=== PATIENT | female | born 1975 | race Caucasian/White ===

== ENCOUNTER 2020-09-12 | Outpatient (REF) | payer MEDICARE, MEDICAID, SELFPAY | END 2020-09-12 00:01 | disposition home or self-care (01) | LOC: HO.LNP | PROVIDERS: Visit Provider Hospitalist | DX: Z20.828 Contact with and (suspected) exposure to other viral communicable diseases (principal) | CPT/HCPCS: U0003 ==

== ENCOUNTER 2021-04-22 19:25 | Outpatient (REF) | payer MEDICARE, MEDICAID, SELFPAY | END 2021-04-22 19:26 | disposition home or self-care (01) | LOC: HO.LNP 19:25 | PROVIDERS: Visit Provider Family Medicine | DX: Z20.822 Contact with and (suspected) exposure to COVID-19 (principal); R05 Cough; B34.9 Viral infection, unspecified | CPT/HCPCS: U0003; U0005 ==

== ENCOUNTER 2022-05-18 14:57 | Outpatient (REF) | payer MEDICARE, MEDICAID, SELFPAY ==
[2022-05-18 15:32] LABS: Red Blood Count 4.64 X10*6/uL (4.20-5.50)
[2022-05-18 15:34] LABS: Hematocrit 42.4 % (37.0-47.0); Hemoglobin 13.6 g/dl (12.0-16.0); Mean Corpuscular HGB Conc 32.1 g/dl (31.0-35.0); Mean Corpuscular Hemoglobin 29.3 pg (27.0-33.0); Mean Corpuscular Volume 91.4 fL (80.0-98.0); Mean Platelet Volume 13.6 fL (9.4-12.3); Platelet Count 123 X10*3/uL (160-400); Red Cell Distribution Width 14.2 % (11.0-16.0); White Blood Count 13.9 X10*3/uL (4.8-10.8)
[2022-05-18 15:42] LABS: PLT ABN DIST 1
[2022-05-18 16:05] LABS: Alanine Aminotransferase 17 U/L (0-31); Albumin Level 4.6 g/dL (3.5-5.0); Alkaline Phosphatase 79 U/L (39-117); Anion Gap 14 (12-20); Aspartate Amino Transferase 15 U/L (5-31); Bilirubin Total 0.4 mg/dL (0.0-1.0); Blood Urea Nitrogen 10 mg/dL (9-16); Calcium 8.9 mg/dL (8.4-10.2); Carbon Dioxide 25 mmol/L (22-29); Chloride 105 mmol/L (96-108); Cholesterol 231 mg/dL; Estimated Glomerular Filt Rate > 60; Glucose Fasting 87 mg/dL (60-99); HDL Cholesterol 26 mg/dL; Potassium 3.8 mmol/L (3.3-5.1); Sodium 140 mmol/L (135-145); Total Protein 7.6 g/dL (6.5-8.0); Triglycerides 414 mg/dL
[2022-05-18 16:26] LABS: TSH reflex Free T4 2.63 uIU/mL (0.32-4.0)
== END 2022-05-18 14:58 | disposition home or self-care (01) ==
LOC: HO.LAB 14:57
PROVIDERS: PCP Hospitalist; Visit Provider Hospitalist
DX: Z00.00 Encounter for general adult medical examination without abnormal findings (principal); R68.89 Other general symptoms and signs
CPT/HCPCS: 36415; 80053; 80061; 84443; 85027

== ENCOUNTER 2022-05-26 16:28 | Outpatient (REF) | payer MEDICARE, MEDICAID, SELFPAY ==
--- NOTE | ~2022-05-26 | XR_ITS ---
EXAMINATION: XR SHOULDER, LEFT CLINICAL INFORMATION: Pain left shoulder COMPARISON: None TECHNIQUE: AP external rotation, Grashey, scapular Y, and axillary views of the left shoulder. FINDINGS: The bones and soft tissues are normal. No fracture. Glenohumeral and acromioclavicular alignment is anatomic with normal joint space. No abnormal soft tissue calcifications. XR/XR shoulder LT min 2V IMPRESSION: Unremarkable left shoulder exam.
== END 2022-05-26 16:29 | disposition home or self-care (01) ==
LOC: HO.XRAY 16:28
PROVIDERS: PCP Hospitalist; Visit Provider Hospitalist
DX: M25.512 Pain in left shoulder (principal)
CPT/HCPCS: 73030

== ENCOUNTER 2022-11-24 15:13 | Outpatient (REF) | payer MEDICARE, MEDICAID, SELFPAY ==
[2022-11-25 11:17] LABS: Appearance Urine Clear; Color Urine Yellow; Glucose Urine UA Negative (Negative); Leukocyte Esterase Urine Negative (Negative); Nitrite Urine Negative (Negative); Urine Blood Negative (Negative); Urine Ketones Negative (Negative); Urine Protein Negative (Neg-Trace)
== END 2022-11-24 15:14 | disposition home or self-care (01) ==
LOC: HO.LAB 15:13
PROVIDERS: Visit Provider Hospitalist
DX: R35.0 Frequency of micturition (principal)
CPT/HCPCS: 81003

== ENCOUNTER 2023-01-29 15:30 | Outpatient (REF) | payer MEDICARE, MEDICAID, SELFPAY ==
--- NOTE | ~2023-01-29 | XR_ITS ---
EXAMINATION: XR SACRUM AND COCCYX CLINICAL INFORMATION: Back pain. M54.9 - Dorsalgia, unspecified COMPARISON: None available. TECHNIQUE: The sacrum and coccyx are imaged in 3 views. FINDINGS: There is no fracture or destructive process. No periostitis. No spondylolisthesis lumbosacral junction. No focal disc narrowing or endplate sclerosis lower lumbar spine. Mild lower lumbar vertebral spurring. The SI joints show no diastases or erosive change or subchondral sclerosis. The pubis is unremarkable. XR/XR sacrum coccyx min 2V IMPRESSION: Unremarkable examination.
--- NOTE | ~2023-01-29 | XR_ITS ---
EXAMINATION: XR FOOT, RIGHT CLINICAL INFORMATION: M79.671 - Pain in right foot. Twisting injury. COMPARISON: None available. TECHNIQUE: Right foot is imaged in 3 views. FINDINGS: No acute or healing fracture, dislocation, destructive process. No arthropathy. No focal joint narrowing or erosive change. Normal bony mineralization. No periostitis. XR/XR foot RT min 3V IMPRESSION: Normal right foot.
== END 2023-01-29 15:31 | disposition home or self-care (01) ==
LOC: HO.XRAY 15:30
PROVIDERS: PCP Hospitalist; Visit Provider Hospitalist
DX: S93.401A Sprain of unspecified ligament of right ankle, initial encounter (principal); M54.9 Dorsalgia, unspecified; M51.26 Other intervertebral disc displacement, lumbar region
CPT/HCPCS: 72220; 73630

== ENCOUNTER 2023-04-15 20:29 | Emergency (ER) | payer MEDICARE, MEDICAID, SELFPAY ==
[2023-04-15 20:39] VITALS: BP 147/103; PULSE 92; RESP 16; TEMP 36.2; O2SAT 97; BMI 23.6
--- NOTE | 2023-04-15 20:40 | ED.GENADULT ---
HPI - General Adult General Chief complaint: Extremity Injury, Lower Stated complaint: Right ankle pain Time Seen by Provider: 04/15/23 22:30 Source: patient Mode of arrival: ambulatory History of Present Illness HPI narrative: 47-year-old female who reports a sprained ankle back in January and states that she is intermittently had pain of the right ankle joint since that time. Related Data Previous Rx's Medication Instructions Recorded nebulizers #1 ea 08/01/20 albuterol sulfate 2.5 mg/3 mL 2.5 mg (3 mL) inhalation Q4-6H PRN 01/08/22 (0.083 %) solution for nebulization shortness of breath or wheezing 3 months #360 mL albuterol sulfate 90 mcg/actuation 2 puff inhalation Q4-6H PRN 01/08/22 aerosol inhaler (ProAir HFA) shortness of breath or wheezing 30 days #8.5 grams fluticasone propionate 50 2 spray intranasal DAILY #48 mL 08/24/22 mcg/actuation nasal spray,suspension atorvastatin 40 mg tablet 40 mg PO BEDTIME #30 tabs 12/28/22 coenzyme Q10 50 mg capsule (Co 100 mg PO DAILY #60 caps 12/28/22 Q-10) fenofibrate 160 mg tablet 160 mg PO DAILY #30 tabs 12/28/22 acetaminophen 650 mg 650 mg PO Q8H PRN pain #30 tabs 01/13/23 tablet,extended release (Tylenol 8 Hour) cetirizine 10 mg tablet 10 mg PO DAILY #90 tabs 01/14/23 carisoprodol 350 mg tablet (Soma) 350 mg PO BID PRN muscle pain 10 02/11/23 days #20 tabs valacyclovir 1 gram tablet 1,000 mg PO DAILY #90 tabs 02/15/23 ibuprofen 600 mg tablet 600 mg PO TID #90 tabs 03/24/23 Allergies Allergy/AdvReac Type Severity Reaction Status Date / Time bupropion [From Wellbutrin] Allergy Intermediate mouth Verified 04/15/23 20:39 swelling Penicillins [PENICILLINS] Allergy Intermediate HIVES Verified 04/15/23 20:39 naproxen Allergy Mild upset Verified 04/15/23 20:39 stomach Review of Systems Review of Systems: Pertinent positives and negatives as stated in the [facility] Past Medical History Source: nursing notes reviewed Surgical History H/O LEEP History of section History of cholecystectomy History of surgery History of tubal ligation Family History Family History Father Medical history unknown Mother Alcoholic Liver cancer Maternal Grandmother Diabetes Other Substance abuse Social History Social History Housing: House Alcohol intake: former Patient Tobacco Use Status: Current everyday Tobacco user Cigarettes Per Day: 10 e-Cigarette/Vaping Use: Never Used Second Hand Smoke Exposure: Yes Advance Directives: No Advance Directives Information Provided: No service: No Current occupational status: disabled Cognitive needs: No Hearing needs: No Vision needs: No Physical Exam ED Vital Signs: Vital Signs - 24 hr 04/15/23 20:39 Temperature 97.2 F Pulse Rate 92 Respiratory Rate 16 Blood Pressure 147/103 H Pulse Oximetry 97 Oxygen Delivery Method Room Air BMI result Body Mass Index 23.6 VITAL SIGNS: Reviewed. GENERAL: Well developed, well nourished, in no acute distress. HEAD: Normocephalic/atraumatic EYES: PERRLA, EOMI EARS: Ext canals without abnormality NOSE: Nares patent bilateral OROPHARYNX: no oral lesions noted, posterior pharynx clear NECK: Supple, no adenopathy LUNGS: Normal breath sounds. No adventitious sounds or accessory muscle use. SpO2<97> CARDIOVASCULAR: Regular rate and rhythm without noted murmurs ABDOMEN: Soft, non-tender, non-distended with bowel sounds. MUSCULOSKELETAL: No tenderness, deformities, or effusions noted on gross inspection. EXTREMITIES: No cyanosis, clubbing or edema; RIGHT ANKLE: There is no deformity/erythema/induration/effusion, neurovascular is intact. There is full range of motion SKIN: Inspection of the skin reveals no rashes NEUROLOGIC: Alert and oriented x 4. Strength and sensation to light touch were grossly intact x 4. Course Course Course Narrative: This is an RME: Additional HPI, ROS, PE not included below will be deferred to primary provider. This is a [id number]-female presenting to the emergency department with complaints of ongoing right foot and ankle pain since December. Patient was seen by PCP and was told that she was not fractured and does not have follow-up. Patient has had persistent right ankle and foot pain since. No new trauma or injury. Vital signs stable. Foot x-ray from 02/04/2023 unremarkable. No ankle x-ray seen in medical record will order for evaluation. Medical Decision Making Medical Decision Making [facility] Narrative: 47-year-old female with history and clinical presentation consistent with ankle pain that is likely arthritic in nature, x-ray is negative for any acute fracture or dislocation. She is discharged home. Differential Diagnosis Please see the discussion above Radiology Impression Radiologist Impression: My interpretation is in agreement with radiology's impression. Discharge Plan Discharge Clinical Impression: Ankle arthritis Patient Disposition: Home, Self-Care Instructions: Arthralgia (ED), Arthritis (ED) Additional Instructions: 1. Recommend the use of Tylenol/ibuprofen for ankle pain and follow-up with your primary care provider for possible referral to physical therapy. Return to the ER for any worsening symptoms. Prescriptions: No Action fluticasone propionate 50 mcg/actuation spray,suspension 2 spray intranasal DAILY Qty: 48 2RF cetirizine 10 mg tablet 10 mg PO DAILY Qty: 90 1RF carisoprodol [Soma] 350 mg tablet 350 mg PO BID PRN (Reason: muscle pain) 10 Days Qty: 20 0RF valacyclovir 1 gram tablet 1,000 mg PO DAILY Qty: 90 1RF Rx Instructions: suppressive theraoy ibuprofen 600 mg tablet 600 mg PO TID Qty: 90 1RF Rx Instructions: always take with food or mild use (DME) nebulizers Misc See Rx Instructions .ROUTE .MEDSUPPLY Qty: 1 0RF Rx Instructions: nebulizer device albuterol sulfate [ProAir HFA] 90 mcg/actuation HFA aerosol inhaler 2 puff inhalation Q4-6H PRN (Reason: shortness of breath or wheezing) 30 Days Qty: 8.5 6RF albuterol sulfate 2.5 mg /3 mL (0.083 %) solution for nebulization 2.5 mg inhalation Q4-6H PRN (Reason: shortness of breath or wheezing) 90 Days Qty: 360 6RF acetaminophen [Tylenol 8 Hour] 650 mg tablet extended release 650 mg PO Q8H PRN (Reason: pain) Qty: 30 1RF coenzyme Q10 [Co Q-10] 50 mg capsule 100 mg PO DAILY Qty: 60 6RF fenofibrate 160 mg tablet 160 mg PO DAILY Qty: 30 6RF atorvastatin 40 mg tablet 40 mg PO BEDTIME Qty: 30 8RF Referrals: Suzie Tolbert NP [Primary Care Provider] -
[2023-04-15 23:51] VITALS: BP 149/74; PULSE 70; RESP 16; TEMP 36.7; O2SAT 98
== END 2023-04-15 23:51 | disposition home or self-care (01) ==
PROVIDERS: Emergency Provider Student in an Organized Health Care Education/Training Program; PCP Hospitalist
DX: M19.071 Primary osteoarthritis, right ankle and foot (principal); M25.571 Pain in right ankle and joints of right foot; F17.210 Nicotine dependence, cigarettes, uncomplicated
CPT/HCPCS: 73610; 99283

== ENCOUNTER 2023-06-02 15:03 | Outpatient (AMB) | payer MEDICARE, MEDICAID, SELFPAY ==
--- NOTE | 2023-06-02 15:08 | MHC.PC.OV ---
Vital Signs 06/02/23 15:09 Height 5 ft 1.46 in Weight 121 lb 2 oz BMI 22.5 BP 126/70 Blood Pressure Location Rt brachial Position Sitting Respiration 12 Pulse 72 Pulse Source Pulse Oximeter Temp 98.5 F Temp Source Temporal Artery Scan Pulse Oximetry (%) 99 Oxygen Delivery Method Room Air Intake Visit Reasons: Extended Exam Intake Note: Patient states that she has been experiencing severe back pain. Patient states that she may have a cyst in her mouth and would like a referral to whoever can remove a cyst out of her mouth. Patient wo8uld like to discuss all available x-rays. Patient states that one of her meds is causing her to have the runs, and would like an anti-diarrhea med. Cutting Tool Sharpener Required: No Accompanied by: Self / Same As Patient Allergies bupropion [From Wellbutrin] Allergy (Intermediate, Verified 06/02/23 15:15) mouth swelling Penicillins [PENICILLINS] Allergy (Intermediate, Verified 06/02/23 15:15) HIVES naproxen Allergy (Mild, Verified 06/02/23 15:15) upset stomach Tobacco use date assessed: 01/13/23 Dental Screening Dental Screen Date: 06/02/23 Did you have a dental visit in the last 12 months?: Yes Did you have a dental problem in the last 6 months where you did not have access to dental care?: No Was dental information given to patient?: Patient has dentist HPI HPI Comments History of Present Illness Details 47-year-old female presents for complete physical exam. She reports chronic intermittent lower back pain and intermittent right ankle pain since it was injured in January 2023. Review of x-ray of the right ankle in April 2023: unremarkable. She admits to smoking 7 cigarette daily. She states she has significantly cut down on smoking from 1.5 - 2 packs per day. She notes she has been smoking for over 10 years. She states her last pap smear test was 2 years ago: normal. She requests a referral to gynecology. She denies FH of colon cancer. [facility] Medical History No pertinent past medical history Surgical History H/O LEEP History of section History of cholecystectomy History of surgery History of tubal ligation Family History Father Medical history unknown Mother Alcoholic Liver cancer Maternal Grandmother Diabetes Other Substance abuse Social History Housing: House Alcohol intake: former Patient Tobacco Use Status: Current someday Tobacco user Cigarettes Per Day: 10 e-Cigarette/Vaping Use: Never Used Second Hand Smoke Exposure: Yes service: No Current occupational status: disabled Cognitive needs: No Hearing needs: No Vision needs: No Questionnaire Thrive Questionnaire Date Thrive assessed: 05/19/22 RONNIE-7 AMB Questionnaire RONNIE-7 Date RONNIE - 7 assessed: 12/28/22 Source: Developed by Drs. Sergio Goins, Mary Corrales, Ra Wayne and colleagues, with an educational huseyin from [email or web address]. Review of Systems Const Details: Denies chills, Denies fatigue, Denies fever(s), Denies headache(s) and Denies weakness HEENT Denies change in vision, Denies dizziness, Denies headache(s), Denies hearing loss, Denies nasal congestion, Denies sinus pain, Denies sinus pressure and Denies sore throat Card Denies chest pain, Denies lightheadedness, Denies dyspnea and Denies other (palpitations) Resp Denies cough, Denies dyspnea and Denies wheezing GI Denies abdominal pain, Denies melena, Denies hematochezia, Denies change in bowel habits, Denies dyspepsia and Denies nausea Denies hematuria and Denies dysuria Musc Reports LBP and right ankle pain, Denies abnormal gait, Denies numbness and Denies tingling Skin/Breast Denies rash, Denies unusual bruising and Denies wounds Neuro Denies abnormal gait, Denies dizziness, Denies headache(s), Denies memory loss, Denies numbness, Denies Sensory deficit (Neuro), Denies tingling and Denies weakness Psych Denies anxiety, Denies depression and Denies memory loss Endo Denies cold intolerance, Denies fatigue, Denies heat intolerance, Denies polydipsia and Denies polyuria Fazal/Lymph Denies easy bleeding and Denies easy bruising Aller/Immun Denies wheezing Physical exam (Primary Care) Vital Signs: Last Vital Signs Temp 98.5 F 08/23/23 15:09 Pulse 72 06/02/23 15:09 Resp 12 06/02/23 15:09 BP 126/70 06/02/23 15:09 Pulse Ox 99 06/02/23 15:09 Oxygen Delivery Method Room Air 06/02/23 15:09 BMI result Body Mass Index 22.5 Tobacco/Smoking Status: Tobacco use Status Tobacco use date assessed 01/13/23 06/02/23 15:19 Patient Tobacco Use Status Current someday Tobacco 06/02/23 15:19 e-Cigarette/Vaping Use Never Used 06/02/23 15:19 Thrive Assessment: Date of Thrive Assessment Date Thrive assessed 05/19/22 06/02/23 15:19 Const Other: General: no acute distress, well developed, alert and awake Nutritional Appearance: well nourished Orientation/consciousness: patient oriented x3 HENMT Head: Yes normocephalic and Yes atraumatic Ears: hearing grossly normal bilaterally and TM's normal bilaterally General nose exam: Normal external nose present and Normal nares present Mouth: Normal oral and palatal mucosa present and moist mucous membranes Teeth and gingiva: Edentulous Throat: Yes oropharynx normal Eyes Pupils: Equal, round and reactive pupils present and Pupil accommodation reflex normal EOM: EOMs intact bilaterally Neck Neck: Yes normal visual inspection, Yes no lymphadenopathy and Yes trachea midline Thyroid: Thyroid normal Carotids: no bruits Lymphatic: no lymphadenopathy noted Chest Chest palpation & inspection: normal inspection of the chest Resp Effort & Inspection: normal respiratory effort Auscultation: clear to auscultation bilaterally Cardio Rate: regular rate Rhythm: regular rhythm Heart sounds: S1 normal heart sound present, S2 normal heart sound present, no gallops, no murmurs and no rubs Bruits: no abdominal aortic bruits and no carotid bruits GI Palpation (GI): No Abdominal aortic bruit present, Soft to palpation, nontender, No hepatosplenomegaly present and No Rebound tenderness present Auscultation: normal bowel sounds General: Yes no CVA tenderness Back/Spine/Pelvis Back: no CVA tenderness Cervical Spine: cervical ROM normal and No Cervical spine tenderness Thoracic/Lumbar Spine: thoraco-lumbar ROM normal, No pain with thoraco-lumbar ROM, No thoracic spinal tenderness and lumbar spinal tenderness Skin General: warm and dry. Normal skin color. Normal skin turgor Lesions: no lesions Rashes: no rashes Trauma: no lacerations or abrasions Wounds: no wounds Nails: normal Neuro General: patient oriented x3, gait normal and CN's II-XI intact bilaterally Cranial nerves: Yes Equal, round and reactive pupils present Cognition (Neuro): normal cognition Gait exam (Neuro): Normal gait present Motor exam (neuro): 5/5 motor strength present throughout Sensory Exam: No Sensory deficit (Neuro) Deep tendon reflexes (DTR's): Right patellar reflex intensity grade: 2+ and Left patellar reflex intensity grade: 2+ Extrem General: Yes normal to inspection, No edema and No calf tenderness Psych Appearance: grossly normal Affect: normal affect Attitude: cooperative Thought process: Normal thought process present Assessment and Plan Assessment & Plan (1) Normal physical examination, routine: Code(s): Z00.00 - Encounter for general adult medical examination without abnormal findings Plan: No significant physical restrictions or limitations noted Routine labs ordered. Encouraged to fast for at least 10-12 hours before getting blood work done (2) Right ankle sprain: Code(s): S93.401A - Sprain of unspecified ligament of right ankle, initial encounter Plan: Reports right ankle pain since it was injured in January 2023 Review of x-ray of the right ankle in April 2023: unremarkable Likely arthritis May take Tylenol ibuprofen for pain or discomfort Warm/cool compresses encouraged Return with worsening or new symptoms Verbalized understanding and agreed with treatment plan. (3) Back pain: Code(s): M54.9 - Dorsalgia, unspecified Plan: Reports chronic intermittent lower back pain Mild tenderness of the lumbar spine Likely arthritis Plan as above (4) Hyperlipidemia: Code(s): E78.5 - Hyperlipidemia, unspecified Plan: Triglycerides was significant elevate, total cholesterol levels was slightly elevated, and HDL was significant low a year ago. LDL TNP. She is on fenofibrate and atorvastatin. Encouraged to continue to take the medications as prescribed Advised to limit foods high in saturated fat and avoid foods high trans fat Routine exercise encouraged Routine labs and lipid panel ordered. Advised to get fasting blood work done before next visit Follow-up in 1 month or return sooner with symptoms or concerns Verbalized understanding and agreed with treatment plan. (5) Thrombocytopenia: Code(s): D69.6 - Thrombocytopenia, unspecified Plan: Platelet counts was low, 123 a year ago CBC ordered. Will review results and make changes to her care plan if warranted. (6) Pap smear for cervical cancer screening: Code(s): Z12.4 - Encounter for screening for malignant neoplasm of cervix Plan: She states her last pap smear test was 2 years ago: normal. She requests a referral to gynecology. Referred to [facility]. (7) Smoking: Code(s): F17.200 - Nicotine dependence, unspecified, uncomplicated Plan: She admits to smoking 7 cigarette daily. She states she has significantly cut down on smoking from 1.5 - 2 packs per day. She notes she has been smoking for over 10 years. Smoking cessation encouraged Advised to inform her PCP if she requires medication for smoking cessation Verbalized understanding and agreed with the plan. Orders: Orders Comprehensive [place]. Panel Fast 06/02/23 Z00.00 - Encounter for general adult medical examination without abnormal findings Lipid Panel 06/02/23 Z00.00 - Encounter for general adult medical examination without abnormal findings TSH reflex Free T4 06/02/23 Z00.00 - Encounter for general adult medical examination without abnormal findings Complete Blood Count Auto Diff 06/02/23 Z00.00 - Encounter for general adult medical examination without abnormal findings Referrals [facility] [facility] Referral Z12.4 - Encounter for screening for malignant neoplasm of cervix Coding Level of Care Code Est Pt Prev Care 40-64y([id number]) Diagnoses Normal physical examination, routine Z00.00 Right ankle sprain S93.401A Back pain M54.9 Hyperlipidemia E78.5 Thrombocytopenia D69.6 Pap smear for cervical cancer screening Z12.4 Smoking F17.200
[2023-06-02 15:09] VITALS: BP 126/70; PULSE 72; RESP 12; TEMP 36.9; O2SAT 99; BMI 22.5
== END 2023-06-02 15:38 | disposition home or self-care (01) ==
PROVIDERS: PCP Hospitalist; Visit Provider Nurse Practitioner Family
DX: Z00.00 Encounter for general adult medical examination without abnormal findings (principal); D69.6 Thrombocytopenia, unspecified; F17.210 Nicotine dependence, cigarettes, uncomplicated; S93.401A Sprain of unspecified ligament of right ankle, initial encounter; M54.9 Dorsalgia, unspecified; E78.5 Hyperlipidemia, unspecified
CPT/HCPCS: 99396

== ENCOUNTER 2023-09-16 13:33 | Outpatient (AMB) | payer MEDICARE, MEDICAID, SELFPAY ==
--- NOTE | 2023-09-16 13:40 | MHC.OFFVIS ---
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 Doing well with no concerns. She tries to eat healthy and stays active with exercise. She reports her menses are skipping a few months at a time. Currently is not sexually active. She denies vaginal itching and irritation. STI screening offered; she declines. Denies family history of breast, ovarian or colon cancer. 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 Graves disease Thrombocytopenia Hyperlipidemia Fibromyalgia Herpes infection No pertinent past medical history Surgical History H/O LEEP History of cholecystectomy History of tubal ligation History of surgery History of section Family History Father Medical history unknown Mother Alcoholic Liver cancer Maternal Grandmother Diabetes Other Substance abuse Social History Housing: House Alcohol intake: former Patient Tobacco Use Status: Current someday Tobacco user Cigarettes Per Day: 10 e-Cigarette/Vaping Use: Currently Using Second Hand Smoke Exposure: Yes Use of substances other than those prescribed or required for medical reasons: No service: No Current occupational status: disabled Sexually active: No Sexual orientation: Straight/Heterosexual Gender identity: Female Cognitive needs: No Hearing needs: No Vision needs: No Female Reproductive History Menstrual Date of last menstrual period: 09/13/23 control method: permanent sterilization Permanent Sterilization: BTL Total pregnancies: 4 Full term: 3 Number of Living Children: 3 Ab spontaneous: 1 Date of last pap smear: 04/19/19 (lgsil +hpv) History of abnormal pap smear: Yes (age 20 ?Leep) Review of Systems Const All systems reviewed & are unremarkable except as noted in HPI and below Reports as per HPI Eyes Reports no additional complaints ENT Reports no additional complaints Card Reports no additional complaints Resp Reports no additional complaints GI Reports as per HPI and Reports no additional complaints Reports as per HPI Musc Reports no additional complaints Skin/Breast Reports as per HPI Neuro Reports no additional complaints Psych Reports no additional complaints Endo Reports no additional complaints Fazal/Lymph Reports no additional complaints Aller/Immun Reports no additional complaints Physical Exam Vital Signs: Last Vital Signs BP 130/72 09/16/23 13:41 BMI result Body Mass Index 23.1 Const General: cooperative, healthy appearing, no acute distress, well developed and alert Orientation/consciousness: patient oriented x3 HEENT Head: Yes normal to inspection Eyes General: appearance normal, both eyes and all related structures Neck Neck: Yes normal visual inspection Thyroid: Thyroid normal Chest Chest palpation & inspection: normal inspection of the chest and other (no puckering, dimpling, peau de orange, retraction, discharge, masses) Breast/axilla inspection: normal inspection of the breasts Breast/axilla palpation: normal palpation of the breasts Resp Effort & Inspection: normal respiratory effort GI Inspection: Yes normal to inspection Palpation (GI): Soft to palpation Rectal Exam - Female: deferred General: Yes bladder normal to palpation External Female Exam: normal external appearance and normal appearance of the urethra Speculum Exam - Vagina: normal appearance of the vagina, normal palpation and normal vaginal discharge Speculum Exam - Cervix: normal appearance of the cervix and normal palpation Bimanual exam- vagina & uterus: normal bimanual exam, normal palpation, uterine size normal, bladder normal to palpation, normal palpation and non-tender Bimanual Exam- Adnexa, other: no masses Skin General skin exam: no rashes or lesions noted Rashes: no rashes Neuro General: patient oriented x3 Cognition (Neuro): normal cognition Extrem General: Yes normal to inspection Psych Attitude: cooperative Thought process: Normal thought process present Assessment & Plan Assessment & Plan (1) Encounter for well woman exam with routine gynecological exam: Code(s): Z01.419 - Encounter for gynecological examination (general) (routine) without abnormal findings Plan Discussed: Current recommendations for pap smears per ASCCP guidelines. Breast awareness and periodic breast exams. Maintain a healthy lifestyle including a well balanced diet and routine exercise. Use condoms for STI and prevention if indicated. Counseled re: perimenopause verses menopause changes. Monitor menstrual cycles, report any unscheduled bleeding, bleeding episodes <21 days apart or heavy/prolonged menstrual bleeding. Menopause occurs after a full 12 months of absent menses. If at risk for , use condoms, and if menses is late, take a home test. Call the office for further evaluation if a positive result or abnormal bleeding pattern occurs. Mammogram yearly. She expressed that she did not really want to get to get a mammogram, I strongly encouraged her to do an earlier screening and not wait. Encouraged tobacco cessation. All of her questions and concerns were addressed to the best of my ability. 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 Orders: Orders MM tomosynthesis screening BI Today Z12.31 - Encounter for screening mammogram for malignant neoplasm of breast Coding Level of Care Code New Pt Prev Care 40-64y(09335) Diagnoses Encounter for well woman exam with routine gynecological exam Z01.419
[2023-09-16 13:41] VITALS: BP 130/72; BMI 23.1
== END 2023-09-16 14:16 | disposition home or self-care (01) ==
PROVIDERS: PCP Hospitalist; Visit Provider Advanced Practice Midwife
DX: Z01.419 Encounter for gynecological examination (general) (routine) without abnormal findings (principal)
CPT/HCPCS: G0101

== ENCOUNTER 2023-09-16 13:33 | Outpatient (REF) | payer MEDICARE, MEDICAID, SELFPAY ==
[2023-09-23 21:38] LABS: HPV mRNA E6/E7 rflx Not Detected (Not Detected)
== END 2023-09-16 13:34 | disposition home or self-care (01) ==
LOC: HO.LNP 13:33
PROVIDERS: PCP Hospitalist; Visit Provider Advanced Practice Midwife
DX: Z01.419 Encounter for gynecological examination (general) (routine) without abnormal findings (principal)
CPT/HCPCS: 87624; 88142; G0101

== ENCOUNTER 2023-12-07 12:54 | Outpatient (AMB) | payer MEDICARE, MEDICAID, SELFPAY ==
[2023-12-07 12:59] VITALS: BP 114/70; PULSE 88; RESP 13; TEMP 36.3; O2SAT 97; BMI 23.7
--- NOTE | 2023-12-07 12:59 | MHC.PC.OV ---
Vital Signs 12/07/23 12:59 Height 5 ft 1.46 in Weight 127 lb 4 oz BMI 23.7 BP 114/70 Blood Pressure Location Rt brachial Position Sitting Respiration 13 Pulse 88 Pulse Source Pulse Oximeter Temp 97.4 F Temp Source Temporal Artery Scan Pulse Oximetry (%) 97 Oxygen Delivery Method Room Air Intake Visit Reasons: Transfer from [facility] Intake Note: Patient would like nebulizer solution ordered. 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 Required: No Accompanied by: Self / Same As Patient Allergies bupropion [From Wellbutrin] Allergy (Intermediate, Verified 12/07/23 13:10) mouth swelling Penicillins [PENICILLINS] Allergy (Intermediate, Verified 12/07/23 13:10) HIVES naproxen Allergy (Mild, Verified 12/07/23 13:10) upset stomach Medication List - Last Reconciled 12/07/23 by Darya More CNP acetaminophen ER (Tylenol 8 Hour) 650 mg PO Q8H PRN albuterol sulfate 90 mcg/actuation (ProAir HFA) 2 puffs inhalation Q4-6H PRN 30 days albuterol sulfate 2.5 mg (3 mL) inhalation Q4-6H PRN 3 months atorvastatin 40 mg PO BEDTIME carisoprodol (Soma) 350 mg PO BID PRN 10 days cetirizine 10 mg PO DAILY fenofibrate 160 mg PO DAILY fluticasone propionate 50 mcg/actuation 2 sprays intranasal DAILY ibuprofen 600 mg PO TID nebulizers nebulizer device Tobacco use date assessed: 12/07/23 Dental Screening Dental Screen Date: 12/07/23 Did you have a dental visit in the last 12 months?: No Did you have a dental problem in the last 6 months where you did not have access to dental care?: No Was dental information given to patient?: Yes HPI HPI Comments History of Present Illness Details 48-year-old female presents for transfer of care Her former PCP is WU who is no longer with the practice She has history of asthma, hyperlipidemia, anxiety, depression, fibromyalgia, and herpes infection She admits to taking her medications as prescribed without adverse reactions She has a standing routine fasting blood work which she has not gotten done She notes that she was treated for pneumonia, virtually, by [facility] 3 weeks ago. She states she took prednisone for 5 days. She reports improved symptoms. She notes that she only has mild nasal congestion at this time She reports poorly control asthma symptoms weight difficulty breathing at times especially at night She notes that she is trying to quit smoking and down to 1-2 cigarettes daily. She is interested in trying nicotine lozenges She drinks alcohol occasionally She denies recreational drug use Last pap smear test: 09/2023 She notes that she has never had a mammogram. Mammogram was ordered by informatics nurse specialist in September,. She notes that she has not been contacted to schedule an appointment She noes that she has never had a colonoscopy done She notes that she had not been vaccinated for influenza this season. 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 Graves disease Thrombocytopenia Hyperlipidemia Fibromyalgia Herpes infection No pertinent past medical history Surgical History H/O LEEP History of cholecystectomy History of tubal ligation History of surgery History of section Family History Father Medical history unknown Mother Alcoholic Liver cancer Maternal Grandmother Diabetes Other Substance abuse Social History Housing: House Alcohol intake: former Patient Tobacco Use Status: Current someday Tobacco user Cigarettes Per Day: 1 Years Smoked: 20+ e-Cigarette/Vaping Use: Former Use Second Hand Smoke Exposure: Yes service: No Current occupational status: disabled Sexual orientation: Straight/Heterosexual Gender identity: Female Cognitive needs: No Hearing needs: No Vision needs: No Questionnaire PHQ-9 Over the last 2 weeks, how often have you been bothered by any of the following problems? 1. Little interest or pleasure in doing things: not at all 2. Feeling down, depressed, or hopeless: not at all 3. Trouble falling or staying asleep, or sleeping too much: nearly every day 4. Feeling tired or having little energy: nearly every day 5. Poor appetite or overeating: not at all 6. Feeling bad about yourself - or that you are a failure or have let yourself or your family down: not at all 7. Trouble concentrating on things, such as reading the newspaper or watching television: not at all 8. Moving or speaking so slowly that other people could have noticed. Or the opposite - being so fidgety or restless that you have been moving around a lot more than usual: not at all 9. Thoughts that you would be better off or of hurting yourself in some way: not at all Total score: 6 Depression Screening Interpretation: Positive Depression Screening Done: Yes 36286 - PHQ-9 Billing: Yes Source: Developed by Drs. Sergio Goins, Mary Corrales, Ra Wayne and colleagues, with an educational huseyin from [employer]. Thrive Questionnaire Date Thrive assessed: 12/07/23 I am a: Patient What is your living situation today?: I have a steady place to live Within the past 12 months, did the food you bought not last and you didn't have the money to get more?: Never true Do you have trouble paying for medicines?: No Do you have trouble getting transportation to medical appointments?: No Do you have trouble paying your heating and electricity bill?: No Do you have trouble taking care of your child, family member or friend?: No Do you have trouble with day-to-day activities such as bathing, preparing meals, shopping, managing finances, etc.?: No Are you currently unemployed and looking for a job?: No Are you interested in more education?: No Please select the resources that you would like help with: None Currently or been in a relationship where the following occur: no concerns reported THRIVE Score: 0 AUDIT C Alcohol Use Questionnaire (AUDIT-C) 1. How often do you have a drink containing alcohol?: Monthly or less 2. How many drinks containing alcohol do you have on a typical day when you are drinking?: 1 or 2 3. How often do you have six or more drinks on one occasion?: Never Total Score: 1 RONNIE-7 AMB Questionnaire RONNIE-7 Date RONNIE - 7 assessed: 12/07/23 Feeling nervous, anxious, or on edge: 0 = Not at all Not being able to stop or control worryin = Not at all Worrying too much about different things: 0 = Not at all Trouble relaxin = Several days Being so restless that it is hard to sit still: 0 = Not at all Becoming easily annoyed or irritable: 0 = Not at all Feeling afraid as if something awful might happen: 0 = Not at all Total RONNIE-7 score (0-4 normal; 5-9 mild; 10-14 moderate; 15-21 severe): 1 Source: Developed by Drs. Sergio Goins, Mary Corrales, Ra Wayne and colleagues, with an educational huseyin from [employer]. RONNIE-7 Assessment Billing RONNIE-7 Assessment Tool: RONNIE-7 Assessment 11337 ACT Questionnaire In the past 4 weeks, how much of the time did your asthma keep you from getting as much done at work, school or at home?: All of the time During the past 4 weeks, how often have you had shortness of breath?: More than once a day During the past 4 weeks, how often did your asthma symptoms wake you up at night or earlier than usual in the morning?: 4 or more nights a week During the past 4 weeks, how often have you had to use your rescue inhaler or nebulizer medication?: More than 3 times per day How would you rate your asthma control during the past 4 weeks?: Somewhat controlled ACT Interpretation: Positive Score: 7 Review of Systems Const Details: Const Denies chills, Denies fatigue, Denies fever(s), Denies headache(s) and Denies weakness ENT Denies dizziness and Denies headache(s) Card Denies chest pain, Denies lightheadedness, Denies dyspnea and Denies other (Palpitations) Resp Denies cough, Denies dyspnea, Denies wheezing and Denies other ( shortness of breath) GI Denies abdominal pain, Denies melena, Denies hematochezia, Denies change in bowel habits, Denies dyspepsia and Denies nausea Denies hematuria and Denies dysuria Musc Denies abnormal gait, Denies myalgias, Denies arthralgias, Denies numbness and Denies tingling Skin/Breast Denies rash, Denies unusual bruising and Denies wounds Neuro Denies abnormal gait, Denies dizziness, Denies headache(s), Denies memory loss, Denies numbness, Denies Sensory deficit (Neuro), Denies tingling and Denies weakness Psych Denies anxiety, Denies depression, Denies memory loss Endo Denies cold intolerance, Denies fatigue, Denies heat intolerance, Denies polydipsia and Denies polyuria Aller/Immun Denies wheezing Physical exam (Primary Care) Vital Signs: Last Vital Signs Temp 97.4 F 12/07/23 12:59 Pulse 88 12/07/23 12:59 Resp 13 12/07/23 12:59 BP 114/70 12/07/23 12:59 Pulse Ox 97 12/07/23 12:59 Oxygen Delivery Method Room Air 12/07/23 12:59 BMI result Body Mass Index 23.7 Tobacco/Smoking Status: Tobacco use Status Tobacco use date assessed 12/07/23 12/07/23 13:13 Patient Tobacco Use Status Current someday Tobacco 12/07/23 13:13 e-Cigarette/Vaping Use Former Use 12/07/23 13:13 PHQ-9: PHQ-9 Score PHQ-9: Total score 6 12/07/23 13:16 Depression Screening Interpretation: Positive Thrive Assessment: Date of Thrive Assessment Date Thrive assessed 12/07/23 12/07/23 13:13 Currently or been in a relationship where the following occur: no concerns reported Const Other: General: no acute distress and well developed Nutritional Appearance: well nourished Orientation/consciousness: patient oriented x3 HENMT Head: Yes normocephalic and Yes atraumatic Eyes General: appearance normal, both eyes and all related structures Pupils: Equal, round and reactive pupils present EOM: EOMs intact bilaterally Resp Effort & Inspection: normal respiratory effort Auscultation: clear to auscultation bilaterally Cardio Rate: regular rate Rhythm: regular rhythm Heart sounds: S1 normal heart sound present, S2 normal heart sound present, no gallops, no murmurs and no rubs GI Palpation (GI): No Abdominal aortic bruit present, Soft to palpation, nontender, No hepatosplenomegaly present and No Rebound tenderness present Auscultation: normal bowel sounds General: Yes no CVA tenderness Back/Spine/Pelvis Back: no CVA tenderness Cervical Spine: cervical ROM normal and No Cervical spine tenderness Thoracic/Lumbar Spine: thoraco-lumbar ROM normal, No pain with thoraco-lumbar ROM, No thoracic spinal tenderness and No lumbar spinal tenderness Extrem General: Yes normal to inspection, No edema and No calf tenderness Skin General: warm and dry. Normal skin color. Normal skin turgor Neuro General: patient oriented x3, gait normal and no focal neuro deficit Cranial nerves: Yes Equal, round and reactive pupils present Cognition (Neuro): normal cognition Gait exam (Neuro): Normal gait present Sensory Exam: No Sensory deficit (Neuro) Psych Appearance: grossly normal Affect: normal affect Attitude: cooperative Thought process: Normal thought process present Assessment and Plan Assessment & Plan (1) Hyperlipidemia: Code(s): E78.5 - Hyperlipidemia, unspecified Plan: He has not gotten lipid panel blood work done Encouraged to get blood work done before her next visit Continue to take atorvastatin as prescribed Follow-up in 1 month return sooner with symptoms or concerns Verbalized understanding and agreed with plan (2) Asthma, mild intermittent, poorly controlled: Code(s): J45.20 - Mild intermittent asthma, uncomplicated Plan: Reports poorly control asthma with difficulty breathing especially at night ACT score is 7, indicates poorly control asthma Alvesco 80 mcg, 1 puff twice daily ordered. Instructed on the use of the medication Follow-up in 1 month or return sooner with worsening or new symptoms Verbalized understanding agreed with treatment plan (3) Anxiety with depression: Code(s): F41.8 - Other specified anxiety disorders Plan: Reports controlled symptoms Not on psychotropic medications Routine exercise encouraged Follow-up with symptoms or concerns Verbalized understanding and agreed with the plan (4) Smoking: Code(s): F17.200 - Nicotine dependence, unspecified, uncomplicated Plan: She is trying to quit smoking and has cut down to 1-2 cigarettes daily. She is interested in trying nicotine lozenges Nicotine lozenges ordered. Take as prescribed Follow-up with symptoms or concerns Verbalized understanding and agreed with treatment plan Medications: New ciclesonide 80 mcg/actuation (Alvesco) 1 puff inhalation BID 6.1 grams 3RF nicotine (polacrilex) 2 mg buccally PRN; 108 ea 0RF nicotine cravings Coding Level of Care Code Est Pt Level 4 (56790) Diagnoses Hyperlipidemia E78.5 Asthma, mild intermittent, poorly controlled J45.20 Anxiety with depression F41.8 Smoking F17.200 Additional Codes RONNIE-7 Assessment Billing - RONNIE-7 Assessment Tool: RONNIE-7 Assessment 54901 ([id number])
== END 2023-12-07 13:39 | disposition home or self-care (01) ==
PROVIDERS: PCP Hospitalist; Visit Provider Nurse Practitioner Family
DX: E78.5 Hyperlipidemia, unspecified (principal); J45.20 Mild intermittent asthma, uncomplicated; F41.8 Other specified anxiety disorders; F17.210 Nicotine dependence, cigarettes, uncomplicated
CPT/HCPCS: 96127; 99214

== ENCOUNTER 2024-05-04 15:40 | Outpatient (AMB) | payer MEDICARE, MEDICAID, SELFPAY ==
--- NOTE | 2024-05-04 15:43 | A.OFFPC_ITS ---
Vital Signs 05/04/24 15:51 Weight 123 lb BP 132/72 Blood Pressure Location Lt brachial Position Sitting Respiration 16 Pulse 83 Pulse Source Pulse Oximeter Temp 98.1 F Temp Source Oral Pulse Oximetry (%) 98 Oxygen Delivery Method Room Air Intake Visit Reasons: HTN Transfer from [facility] needs a female Intake Note: patient here for HTN and transfer of care. 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: No Is last menstrual period known: Yes Last menstrual period: 04/20/24 Post menopausal: No Patient : No Allergies bupropion [From Wellbutrin] Allergy (Intermediate, Verified 05/04/24 15:58) mouth swelling Penicillins [PENICILLINS] Allergy (Intermediate, Verified 05/04/24 15:58) HIVES naproxen Allergy (Mild, Verified 05/04/24 15:58) upset stomach Medication List - Last Reconciled 05/04/24 by SHERWIN Sandoval- acetaminophen ER (Tylenol 8 Hour) 650 mg PO Q8H PRN albuterol sulfate 90 mcg/actuation (ProAir HFA) 2 puffs inhalation Q4-6H PRN 30 days albuterol sulfate 2.5 mg (3 mL) inhalation Q4-6H PRN 3 months atorvastatin 40 mg PO BEDTIME carisoprodol (Soma) 350 mg PO BID PRN 10 days cetirizine 10 mg PO DAILY fenofibrate 160 mg PO DAILY fluticasone furoate 100 mcg/actuation (Arnuity Ellipta) 1 inh inhalation DAILY fluticasone propionate 50 mcg/actuation 2 sprays intranasal DAILY ibuprofen 600 mg PO TID nebulizers nebulizer device nicotine (polacrilex) 2 mg buccally PRN; valacyclovir 1,000 mg PO DAILY Tobacco use date assessed: 05/04/24 Dental Screening Dental Screen Date: 12/07/23 HPI HPI Comments History of Present Illness Details 48-year-old female with generalized anxi ety disorder, major depressive disorder, HPV, HSV, fibromyalgia, hyperlipidemia, current tobacco smoker, mild intermittent asthma, seasonal allergies, Graves disease, chronic low back pain Status post , cleft palate repair, tubal ligation, cholecystectomy, LEEP Health Maintenance: ? Colon reports she is waiting on appt for this ? Mammo declined ? DEXA still getting her periods ? PAP 09/2023 ? Tdap 2021 per reportsr Specialists: director funeral Oral surgeon - Moe Here today to est care and for a CPE. Wears glasses. Eats once per day, but gaining wt in her abd. 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 >> refer to NN States mood is overall controlled cope with it does not feel she needs a counselor @ this time Current tobacco use - uses NRT some times > smoking cessation She is perimenopausal, active w/ [employer]. 1 period in 6 months. Asthma - more effected by the weather. Has RX for arnuity, states she cannot inhale the powder, needs something that is propulsed. >>>> will d/c Arnuity and start Airduo respimat 113/14 one puff BID. Cont SKIP Chronic low back pain - uses soma. Reports has already been seen my pain mgmt and the like, has had injections. Uses APAP, NSAID in addition. Has growth on inside of right cheek, has been there for a while,was referred to ENT several times; she reports has pending appt August 2024 for eval and tx. >> Refer [facility] >>> Advised her to call and see if she can get seen sooner, as this is lesion is concerning. HSV is suppressed on daily acyclovir. Using flonase nasal spray as directed. General: Appear older than stated age, chronically ill Head: Normocephalic, atraumatic. Eyes: Pupils are equal, round and reactive to light and accommodation. Conjunctivae are clear. strabismus, mild exophthalmos Ears: TMs dull AU, EACS WNL Nose: Patent, without discharge. Mouth: Instead of right cheek is a red raised lesion with a white Center, No inflammation, no post nasal drip, no plaques nor exudates. edentulous Neck: Supple, no adenopathy or thyromegaly. Lungs: Clear to auscultation bilaterally. No rales, rhonchi or wheeze noted. Diminished throughout all kapoor. Heart: Regular rate and rhythm. No murmurs, click, rubs or gallops are noted. Abdomen: Round, protuberant, prominent vessels, nontender, hepatomegaly, no hernia, normoactive bowel sounds Musculoskeletal: Joints are nontender, without swelling, redness, or effusions. Range of motion is observed to be normal. Pulses: Peripheral pulses are equal and palpable bilaterally. Extremities: No clubbing, cyanosis nor edema is noted. Neurologic: Gait and station normal. Cranial Nerves 2-12 intact. Motor strength grossly symmetrical and intact. No sensory loss. Balance normal. Skin: No rashes, ulcers, or lesions noted. Turgor is good. Skin color is good. Hair and nails are without abnormalities. Psych: Normal eye contact, affect and mood appropriate, and normal interactions. Patient is alert and appropriate to context. Plan In addition to the above point, continue all other medications as currently prescribed. Get labs done and returned to the office in 6-8 weeks to follow up on the results, sooner as needed. [facility] Medical History (Updated 05/04/24 @ 16:36 by Kisha Moe, [facility]) Smoking Anxiety with depression Elevated triglycerides with high cholesterol Acute exacerbation of asthma with allergic rhinitis 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 Graves disease Thrombocytopenia Hyperlipidemia Fibromyalgia Herpes infection No pertinent past medical history Surgical History H/O LEEP History of cholecystectomy History of tubal ligation History of surgery History of section Family History Father Medical history unknown Mother Alcoholic Liver cancer Maternal Grandmother Diabetes Other Substance abuse Social History Housing: House Alcohol intake: former Patient Tobacco Use Status: Current someday Tobacco user Cigarettes Per Day: 1 Years Smoked: 20+ e-Cigarette/Vaping Use: Former Use Second Hand Smoke Exposure: Yes service: No Current occupational status: disabled Current occupational exposures/hazards: No Sexual orientation: Straight/Heterosexual Gender identity: Female Cognitive needs: No Hearing needs: No Vision needs: No Female Reproductive History Menstrual Date of last menstrual period: 04/20/24 Questionnaire PHQ-9 Over the last 2 weeks, how often have you been bothered by any of the following problems? 1. Little interest or pleasure in doing things: not at all 2. Feeling down, depressed, or hopeless: not at all 3. Trouble falling or staying asleep, or sleeping too much: not at all 4. Feeling tired or having little energy: not at all 5. Poor appetite or overeating: not at all 6. Feeling bad about yourself - or that you are a failure or have let yourself or your family down: not at all 7. Trouble concentrating on things, such as reading the newspaper or watching television: not at all 8. Moving or speaking so slowly that other people could have noticed. Or the opposite - being so fidgety or restless that you have been moving around a lot more than usual: not at all 9. Thoughts that you would be better off or of hurting yourself in some way: not at all Total score: 0 Depression Screening Interpretation: Negative Depression Screening Done: Yes 99056 - PHQ-9 Billing: Yes Source: Developed by Drs. Sergio Goins, Mary Corrales, Ra Wayne and colleagues, with an educational huseyin from [employer]. Thrive Questionnaire Date Thrive assessed: 12/07/23 AUDIT C Alcohol Use Questionnaire (AUDIT-C) 1. How often do you have a drink containing alcohol?: Never 2. How many drinks containing alcohol do you have on a typical day when you are drinking?: 1 or 2 3. How often do you have six or more drinks on one occasion?: Never Total Score: 0 Score Reviewed/Action Taken: Yes RONNIE-7 AMB Questionnaire RONNIE-7 Date RONNIE - 7 assessed: 12/07/23 Source: Developed by Drs. Sergio Goins, Mary Corrales, Ra Wayne and colleagues, with an educational huseyin from [employer]. Physical exam (Primary Care) Vital Signs: Last Vital Signs Temp 98.1 F 05/04/24 15:51 Pulse 83 05/04/24 15:51 Resp 16 05/04/24 15:51 BP 132/72 05/04/24 15:51 Pulse Ox 98 05/04/24 15:51 Oxygen Delivery Method Room Air 05/04/24 15:51 Tobacco/Smoking Status: Tobacco use Status Tobacco use date assessed 05/04/24 05/04/24 15:52 Patient Tobacco Use Status Current someday Tobacco 05/04/24 15:45 e-Cigarette/Vaping Use Former Use 05/04/24 15:45 Are you ready to quit: No Tobacco cessation counseling provided: Yes Items discussed: Other Relapse Prevention: discussed the importance of a supportive environment, discussed extending NRT, discussed negative mood or depression after quitting, weight gain after smoking is common and discussed dietary, exercise and/or lifestyle changes Number of minutes spent counselin CPT code: 96253 - 4-10 Minutes Depression Screening Interpretation: Negative Thrive Assessment: Date of Thrive Assessment Date Thrive assessed 12/07/23 05/04/24 15:45 Assessment and Plan Assessment & Plan (1) Normal physical examination, routine: Code(s): Z00.00 - Encounter for general adult medical examination without abnormal findings (2) Hyperlipidemia: Code(s): E78.5 - Hyperlipidemia, unspecified Qualifiers: Hyperlipidemia type: mixed hyperlipidemia Qualified Code(s): E78.2 - Mixed hyperlipidemia (3) Thrombocytopenia: Code(s): D69.6 - Thrombocytopenia, unspecified (4) Laboratory exam ordered as part of routine general medical examination: Code(s): Z00.00 - Encounter for general adult medical examination without abnormal findings (5) Chronic back pain: Code(s): M54.9 - Dorsalgia, unspecified; G89.29 - Other chronic pain Qualifiers: Back pain location: low back pain Back pain laterality: bilateral Sciatica presence: without sciatica Qualified Code(s): M54.50 - Low back pain, unspecified; G89.29 - Other chronic pain (6) Abdominal bloating: Code(s): R14.0 - Abdominal distension (gaseous) (7) Encounter for screening involving social determinants of health (SDoH): Code(s): Z13.9 - Encounter for screening, unspecified (8) RONNIE (generalized anxiety disorder): Code(s): F41.1 - Generalized anxiety disorder (9) MDD (major depressive disorder), recurrent episode: Code(s): F33.9 - Major depressive disorder, recurrent, unspecified Qualifiers: Major depression episode severity: mild Qualified Code(s): F33.0 - Major depressive disorder, recurrent, mild (10) Tobacco dependence with current use: Code(s): F17.200 - Nicotine dependence, unspecified, uncomplicated (11) Asthma, mild intermittent, poorly controlled: Code(s): J45.20 - Mild intermittent asthma, uncomplicated (12) 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: Code(s): B07.9 - Viral wart, unspecified (13) Herpes infection: Code(s): B00.9 - Herpesviral infection, unspecified (14) Fibromyalgia: Code(s): M79.7 - Fibromyalgia Orders: Orders Comprehensive Met. Panel Today D69.6 - Thrombocytopenia, unspecified, E78.5 - Hyperlipidemia, unspecified, Z00.00 - Encounter for general adult medical examination without abnormal findings Hemoglobin A1c Today D69.6 - Thrombocytopenia, unspecified, E78.5 - Hyperlipidemia, unspecified, Z00.00 - Encounter for general adult medical examination without abnormal findings IRON PROFILE Today D69.6 - Thrombocytopenia, unspecified, E78.5 - Hyperlipidemia, unspecified, Z00.00 - Encounter for general adult medical examination without abnormal findings Hepatitis A,B,C Profile Today R14.0 - Abdominal distension (gaseous) Ferritin Today R14.0 - Abdominal distension (gaseous) Lactate Dehydrogenase Today R14.0 - Abdominal distension (gaseous) LDL Cholesterol Direct Today D69.6 - Thrombocytopenia, unspecified, E78.5 - Hyperlipidemia, unspecified, Z00.00 - Encounter for general adult medical examination without abnormal findings TSH reflex Free T4 Today D69.6 - Thrombocytopenia, unspecified, E78.5 - Hyperlipidemia, unspecified, Z00.00 - Encounter for general adult medical examination without abnormal findings Vitamin B12 and Folate Today D69.6 - Thrombocytopenia, unspecified, E78.5 - Hyperlipidemia, unspecified, Z00.00 - Encounter for general adult medical examination without abnormal findings Complete Blood Count no Diff Today D69.6 - Thrombocytopenia, unspecified, E78.5 - Hyperlipidemia, unspecified, Z00.00 - Encounter for general adult medical examination without abnormal findings HIV Ab/Ag Today R14.0 - Abdominal distension (gaseous) Gamma Glutamyl Transpeptidase Today R14.0 - Abdominal distension (gaseous) Referrals Pain Management Referral G89.29 - Other chronic pain, M54.9 - Dorsalgia, unspecified Nurse Navigator Referral Z13.9 - Encounter for screening, unspecified Medications: New fluticasone propion-salmeterol 113-14 mcg/actuation (AirDuo RespiClick) 1 inh inhalation BID 1 ea 2RF Discontinued fluticasone furoate 100 mcg/actuation (Arnuity Ellipta) Discontinued Reason: Doctor's Order 1 inh inhalation DAILY 30 ea 3RF Patient Instructions: Health screenings for women You should visit your health care provider from time to time, even if you are healthy. The purpose of these visits is to: Screen for medical issues Assess your risk for future medical problems Encourage a healthy lifestyle Update vaccinations and other preventive care services Help you get to know your provider in case of an illness Information Even if you feel fine, you should still see your provider for regular checkups. These visits can help you avoid problems in the future. For example, the only way to find out if you have high blood pressure is to have it checked regularly. High blood sugar and high cholesterol levels also may not have any symptoms in the early stages. A simple blood test can check for these conditions. There are specific times when you should see your provider or receive specific health screenings. The [place] Preventive Services Task Force publishes a list of recommended screenings. Below are screening guidelines for women ages 18 to 39. BLOOD PRESSURE SCREENING Your blood pressure should be checked at least once every 3 to 5 years if: Your blood pressure is in the normal range (top number less than 120 mm Hg and bottom number less than 80 mm Hg) You don't have risk factors for high blood pressure Ask your provider if you need your blood pressure checked more often if: The top number is 120 to 129 mm Hg or the bottom number is 70 to 79 mm Hg You have diabetes, heart disease, kidney problems, are overweight, or have certain other health conditions You have a first-degree relative with high blood pressure You are Black You had high blood pressure during a If the top number is 130 mm Hg or greater or the bottom number is 80 mm Hg or greater, this is considered stage 1 hypertension. Schedule an appointment with your provider to learn how you can reduce your blood pressure. Watch for blood pressure screenings in your area. Ask your provider if you can stop in to have your blood pressure checked. BREAST CANCER SCREENING Experts do not agree about the benefits of breast self-exams in finding breast cancer or saving lives. Talk to your provider about what is best for you. A screening mammogram is not recommended for most women under age 40. Your provider may discuss and recommend mammograms, MRI scans, or ultrasounds if you have an increased risk for breast cancer, such as: A mother or sister who had breast cancer at a young age (most often starting screening earlier than the age the close relative was diagnosed) You carry a high-risk genetic marker CERVICAL CANCER SCREENING Cervical cancer screening should start at age 21 years unless your provider advises otherwise. After the first test: Women ages 21 through 29 should have a Pap test every 3 years. Exoprts do not agree on whether HPV testing is recommended for this age group. Women ages 30 through 65 should be screened with either a Pap test every 3 years or the HPV test every 5 years or both tests every 5 years (called cotesting ). Women who have been treated for precancer (cervical dysplasia) should continue to have Pap tests for 20 years after treatment or until age 65, whichever is longer. If you have had your uterus and cervix removed (total hysterectomy), and you have not been diagnosed with cervical cancer or precancer (high grade cervical neoplasia), you do not need cervical cancer screening. CHOLESTEROL SCREENING Cholesterol screening should begin at: Age 45 for women with no known risk factors for coronary heart disease Age 20 for women with known risk factors for coronary heart disease Repeat cholesterol screening should take place: Every 5 years for women with normal cholesterol levels More often if changes occur in lifestyle (including weight gain and diet) More often if you have diabetes, heart disease, kidney problems, or certain other conditions DIABETES SCREENING You should be screened for diabetes starting at age 35 and then repeated every 3 years if you have no risk factors for diabetes. Screening may need to start earlier and be repeated more often if you have other risk factors for diabetes, such as: You have a first degree relative with diabetes. You are overweight or have obesity. You have high blood pressure, prediabetes, or a history of heart disease. Screening for diabetes should be done if you are planning to become and you are overweight and have other risk factors such as high blood pressure. DENTAL EXAM Go to the dentist once or twice every year for an exam and cleaning. Your dentist will evaluate if you need more frequent visits. EYE EXAM Have an eye exam every 5 to 10 years before age 40. If you have vision problems, have an eye exam every 2 years or more often if recommended by your provider. You should have an eye exam that includes an examination of your retina (back of your eye) at least every year if you have diabetes. IMMUNIZATIONS Commonly needed vaccines include: Flu shot: get one every year. COVID-19 vaccine: ask your provider what is best for you. Tetanus-diphtheria and acellular pertussis (Tdap) vaccine: have one at or after age 19 as one of your tetanus-diphtheria vaccines if you did not receive it as an adolescent. Tetanus-diphtheria: have a booster (or Tdap) every 10 years. Varicella vaccine: receive 2 doses if you never had chickenpox or the varicella vaccine. Hepatitis B vaccine: receive 2, 3, or 4 doses, depending on your exact circumstances. Measles, mumps, and rubella (MMR) vaccine: receive 1 to 2 doses if you are not already immune to MMR. Your provider can tell you if you are immune. Ask your provider about the human papillomavirus (HPV) vaccine if: You have not received the HPV vaccine in the past You have not completed the full vaccine series (you should catch up on this sh ot) Ask your provider if you should receive other immunizations if you have certain health problems that increase your risk for some diseases such as pneumonia. INFECTIOUS DISEASE SCREENING Women who are sexually active should be screened for chlamydia and gonorrhea up until age 25. Women 25 years and older should be screened for chlamydia and gonorrhea if at high risk. Screening for hepatitis C: All adults ages 18 to 79 should get a one-time test for hepatitis C. people should be screened at every . Screening for human immunodeficiency virus (HIV): All people ages 15 to 65 should get a one-time test for HIV. Depending on your lifestyle and medical history, you may also need to be screened for infections such as syphilis and HIV, as well as other infections. PHYSICAL EXAM All adults should visit their provider from time to time, even if they are healthy. The purpose of these visits is to: Screen for disease Assess your risk of future medical problems Encourage a healthy lifestyle Update your vaccinations and other preventive care services Maintain a relationship with a provider in case of an illness Your height, weight, and BMI should be checked at every exam. During your exam, your provider may ask you about: Depression and anxiety Diet and exercise Alcohol and tobacco use Safety issues, such as using seat belts, smoke detectors, and intimate partner violence Your medicines and risk for interactions SKIN SELF-EXAM Your provider may check your skin for signs of skin cancer, especially if you're at high risk, such as if you: Have had skin cancer before Have close relatives with skin cancer Have a weakened immune system OTHER SCREENING Talk with your provider about colon cancer screening if you have a strong family history of colon cancer or polyps, or if you have had inflammatory bowel disease or polyps yourself. Routine bone density screening of women under 40 is not recommended. Walk-In Care (Urgent Care): We Make it Easy Walk-in for urgent medical issues such as: ? Seasonal Allergies ? Insect Bites ? Cough ? Diarrhea ? Acute Asthma Attacks ? Back, Knee or Joint Pain ? Ear Infection ? Fever without a Rash ? Headaches ? Nausea ? [place] [facility], Rash or Skin Irritation ? Sore Throat ? Sports Physicals ? Vomiting Most insurances are accepted. Patients do not need to be part of the [facility] to seek care at the walk-in clinic. Locations [address] [facility] [place] [address] ? [phone] [facility] [place] provides services to ages 18 and over. Open Wednesday-Wednesday: 8 a.m. to 5 p.m. and Wednesday: 9 a.m. to 3 p.m.* *Hours may vary due to staffing availability. To confirm Walk-In Care hours in [place], please call [phone]. [address] [place] [id number] ? [phone] [facility] [place] provides services to ages 12 and over. Open Wednesday-Wednesday: 8 a.m. to 5 p.m. Hours may vary due to staffing availability. To confirm Walk-In Care hours in [place], please call [phone]. LABORATORY SERVICES: [facility] ? Primary Location [address] [place] [address] Wednesday through Wednesday 6:00 AM ? 5:00 PM Wednesday 7:00 AM ? 11:00 AM* [phone] The [facility] is centrally located near the front entrance of the Medical Center for easy outpatient access. Convenient parking is provided for outpatients. *Hours may vary due to staffing availability. To confirm Laboratory hours for any location, please call [phone]. Offsite Location For your convenience, we offer offsite laboratory draw stations at the following locations: [address] [place] [address] [address], [address] Wednesday through Wednesday 7:30 AM ? 1:00 PM* [phone] *Hours may vary due to staffing availability. To confirm Laboratory hours for any location, please call [phone]. [place] ? [address], [place] Wednesday through Wednesday 6:00 AM ? 3:30 PM* Wednesday 6:30 AM ? 3 PM* [phone] *Hours may vary due to staffing availability. To confirm Laboratory hours for any location, please call [phone]. [address] [facility] Wednesday through Wednesday 7:30 AM ? 4:00 PM* [phone] *Hours may vary due to staffing availability. To confirm Laboratory hours for any location, please call [phone]. [address] [facility] Wednesday through 9:00 AM ? 4:00 PM* *Hours may vary due to staffing availability. To confirm Laboratory hours for any location, please call [phone]. Appointments are not necessary. Walk-ins are welcome. Like all the departments throughout the [facility], our Lab undergoes frequent reviews to ensure the quality and accuracy of test results, and our staff takes special pride in its status as a nationally accredited facility. Patient Portal: ONE PATIENT. ONE RECORD. BETTER CARE. [facility] has a fully integrated, cutting- edge mobile electronic health information system that has revolutionized the way we care for our patients and manage our organization. This system improves communication and coordination enabling us to provide safe, higher-quality care, and an overall positive experience for staff and patients. Our first priority, as always, is to deliver the highest quality care possible. The system is running in the background supporting that priority. This portal is for all [facility] and [facility] services and practices. If you are experiencing any technical difficulties with enrolling or logging into the Patient Portal please complete the [facility] Patient Portal Technical Support Form. [facility] and [facility] now offers a new secure on-line interactive tool for patients to review their health information ? ?Patient Portal. This interactive web portal will enable patients and their families to take an active role in their care by providing easy, secure access to their health information via the internet. The Patient Portal provides patients with instant access to their health information, including laboratory results, medications, allergies, demographic information, visit history, and more. In addition to managing their own care, parents and health care proxies with authorized consent will appreciate the ability to access the records of those individuals for whom they provide care. Please note: if you wish to gain access (Proxy) to another patient?s portal, you will be required to come to the Medical Records Department in person at [facility]. Both the patient giving proxy access and the proxy will need to provide photo identification and complete the appropriate authorization. The Patient Portal also allows track their appointments online. The [facility] Patient Portal also saves patients time by allowing them to submit updates to their demographic and contact information prior to their visits. Portal email notifications will also alert patients to any new activity on their portal, such as test results and new appointments. In order to initially enroll in the [facility] Patient Portal, you will need to enter some required information including the following: * your [facility] Medical Record number * your personal home email address * name * date of Please note: In order to enroll in the [facility] Patient Portal, we need to have your email address on file in your electronic medical record. ?The email address needs to be specific for one person (yourself) in order for your Portal enrollment to be successful. ?You can update your email address in person with our Registration staff when you are registering for a hospital visit. ?Otherwise, you will need to come to the Health Information Management (Medical Records) Department at [facility]. ?We are open from Wednesday ? Wednesday from 7:30 a.m. ? 4:30 p.m. ?You will be required to present a photo id. Once you have successfully enrolled in the Patient Portal, you will receive a one-time user id and password for the Portal, sent to your email address. ?This will allow you to log into the Patient Portal within 99 hrs and reset your own logon id and password, and define personal security questions. ?Once your permanent login and password have been set, you can log into the [facility] Patient Portal at any time via the blue button above or from the Portal Logon button on any page of the [facility] website. [facility] and [facility] encourage all of our patients to enroll in Patient Portal as it presents a valuable opportunity for patients and their families to actively participate in their care and stay healthy Welcome to [facility]. ?We look forward to working with you. Smoking Cessation How to Quit There are a lot of ways to quit smoking and many resources to help you. Family members, friends, and co-workers may be supportive or encouraging, but to be successful the desire and commitment to quit must be your own. Most people who have been able to successfully quit smoking made at least one unsuccessful attempt in the past. Try not to view past attempts to quit as failures, but rather as learning experiences. Stopping smoking or using smokeless tobacco is difficult, but anyone can do it. Know the symptoms to expect when you stop. Common symptoms include: ? An intense craving for nicotine ? Anxiety, tension, restlessness, frustration, or impatience ? Difficulty concentrating ? Drowsiness or trouble sleeping, as well as bad dreams and nightmares ? Drowsiness and trouble sleeping ? Headaches ? Increased appetite and weight gain ? Irritability or depression How severe your symptoms are depends on how long you smoked and how many cigarettes you smoked each day. Feel ready to quit? ? First and foremost, set a quit date and quit completely on that day. Before your quit date, you may begin reducing your cigarette use. But remember, there is no safe level of cigarette smoking. ? List the reasons why you want to quit. Include both short- and long-term benefits. ? Identify the times you are most likely to smoke. For example, do you tend to smoke when feeling stressed or down? When out at night with friends? While drinking coffee or alcohol? When bored? While driving? Right after a meal or sex? During a work break? While watching TV or playing cards? When you are with other smokers? ? Let all of your friends, family, and co-workers know of your plan to stop smoking and your quit date. Just being aware that they know what you're going through can be helpful, especially when you are grumpy. ? Get rid of all your cigarettes just before the quit date, and clean out anything that smells like smoke, such as clothes and furniture. Make a plan about what you will do instead of smoking at those times when you are most likely to smoke. ? Be as specific as possible. For example, drink tea instead of coffee -- tea may not trigger the desire for a cigarette. Or, take a walk when you feel stressed. ? Remove ashtrays and cigarettes from the car. Place pretzels or hard candies there instead. Pretend-smoke with a straw. ? Find activities that focus your hands and mind but are not taxing or fattening. Computer games, solitaire, knitting, sewing, and crossword puzzles may help. ? If you normally smoke after eating, find other ways to end a meal. Play a tape or CD, eat a piece of fruit, get up and make a phone call, or take a walk (a good distraction that also meza calories). Make other changes in your lifestyle. ? Change your daily schedule and habits. Eat at different times or eat several small meals instead of three large ones. Sit in a different chair or even a different room. ? Satisfy your oral habits by eating celery or other low-calorie snack, chewing sugarless gum, or sucking on a cinnamon stick. ? Go to public places and restaurants where smoking is prohibited or restricted. ? Eat regular meals and don't eat too much candy or sweet things. ? Get more exercise. Take walks or ride a bike. Exercise helps relieve the urge to smoke. Set short-term quitting goals and reward yourself when you meet them. ? Every day, put the money you normally spend on cigarettes in a jar. Then buy something pleasurable after a period of time. ? Try not to think about all the days ahead you will need to avoid smoking. Take it one day at a time. ? Even one puff or one cigarette will make your desire for more cigarettes even stronger. However, it is normal to make mistakes. So even if you have one cigarette, you don't need to take the next one. Other tips to help you quit smoking and stick to it: ? Enroll in a smoking cessation program (hospitals, health departments, community centers, and work sites often offer programs). Learn about self-hypnosis or other techniques. ? Ask your health care provider about prescription medications that are safe and appropriate for you. ? Find out about nicotine patches, gum, and sprays. The [place] [employer]'s web site -- www.cancer.org -- is an excellent resource for smokers who are trying to quit, and the [employer] [place] [employer] can help some smokers kick the habit. Above all, don't get discouraged if you aren't able to quit smoking the first time. Nicotine addiction is a hard habit to break. Try something different next time. Develop new strategies, and try again. Many people take several attempts to finally kick the habit. Coding Level of Care Code Est Pt Prev Care 40-64y(29333) Diagnoses Normal physical examination, routine Z00.00 Mixed hyperlipidemia E78.2 Hyperlipidemia type: mixed hyperlipidemia Thrombocytopenia D69.6 Laboratory exam ordered as part of routine general medical examination Z00.00 Chronic bilateral low back pain without sciatica M54.50; G89.29 Back pain location: low back pain Back pain laterality: bilateral Sciatica presence: without sciatica Abdominal bloating R14.0 Encounter for screening involving social determinants of health (SDoH) Z13.9 RONNIE (generalized anxiety disorder) F41.1 Mild episode of recurrent major depressive disorder F33.0 Major depression episode severity: mild Tobacco dependence with current use F17.200 Asthma, mild intermittent, poorly controlled J45.20 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
[2024-05-04 15:51] VITALS: BP 132/72; PULSE 83; RESP 16; TEMP 36.7; O2SAT 98
== END 2024-05-04 16:33 | disposition home or self-care (01) ==
LOC: HO.HMGFM 15:41
PROVIDERS: Visit Provider Nurse Practitioner Family
DX: Z00.00 Encounter for general adult medical examination without abnormal findings (principal); D69.6 Thrombocytopenia, unspecified; F33.0 Major depressive disorder, recurrent, mild; E78.2 Mixed hyperlipidemia; M54.50 Low back pain, unspecified; G89.29 Other chronic pain; R14.0 Abdominal distension (gaseous); F41.1 Generalized anxiety disorder; F17.200 Nicotine dependence, unspecified, uncomplicated; J45.20 Mild intermittent asthma, uncomplicated; B07.9 Viral wart, unspecified
CPT/HCPCS: 99396

== ENCOUNTER 2024-06-09 12:39 | Outpatient (REF) | payer MEDICARE, MEDICAID, SELFPAY | END 2024-06-09 12:40 | disposition home or self-care (01) | LOC: HO.LAB 12:39 | PROVIDERS: PCP Nurse Practitioner Family; Visit Provider Advanced Practice Midwife | DX: N84.0 Polyp of corpus uteri (principal); R87.618 Other abnormal cytological findings on specimens from cervix uteri; R35.0 Frequency of micturition | CPT/HCPCS: 58100; 81025; 88305 ==

== ENCOUNTER 2024-06-09 12:39 | Outpatient (AMB) | payer MEDICARE, MEDICAID, SELFPAY ==
--- NOTE | 2024-06-09 12:46 | MHC.OFFVIS ---
Vital Signs 06/09/24 12:49 BP 120/80 Intake Visit Reasons: EMB Biopsy ok per antonio Systems Test Engineer: Systems Test Engineer Present (Tiffany) Allergies bupropion [From Wellbutrin] Allergy (Intermediate, Verified 06/09/24 12:46) mouth swelling Penicillins [PENICILLINS] Allergy (Intermediate, Verified 06/09/24 12:46) HIVES naproxen Allergy (Mild, Verified 06/09/24 12:46) upset stomach HPI Comments Details: Patient is here today for an endometrial biopsy due to endometrial cells on her Pap smear. She reports menses spacing up to 6 months now no irregular patterns, admits to having hot flashes. 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 Graves disease Thrombocytopenia Hyperlipidemia Fibromyalgia Herpes infection No pertinent past medical history Surgical History H/O LEEP History of cholecystectomy History of tubal ligation History of surgery History of section Family History Father Medical history unknown Mother Alcoholic Liver cancer Maternal Grandmother Diabetes Other Substance abuse Social History Housing: House Alcohol intake: former Patient Tobacco Use Status: Current someday Tobacco user Cigarettes Per Day: 1 Years Smoked: 20+ e-Cigarette/Vaping Use: Former Use Second Hand Smoke Exposure: Yes service: No Current occupational status: disabled Current occupational exposures/hazards: No Sexual orientation: Straight/Heterosexual Gender identity: Female Cognitive needs: No Hearing needs: No Vision needs: No Review of Systems Const All systems reviewed & are unremarkable except as noted in HPI and below Physical Exam Vital Signs: Last Vital Signs BP 120/80 06/09/24 12:49 Const General: cooperative, healthy appearing and no acute distress Orientation/consciousness: patient oriented x3 GI Inspection: Yes normal to inspection Palpation (GI): Soft to palpation and Other GI palpation findings present (Nontender) Rectal Exam - Female: visual inspection normal General: Yes bladder normal to palpation External Female Exam: normal appearance of the urethra Speculum Exam - Vagina: normal appearance of the vagina, normal palpation and normal vaginal discharge Speculum Exam - Cervix: normal appearance of the cervix and normal palpation Bimanual exam- vagina & uterus: normal bimanual exam, normal palpation, uterine size normal, bladder normal to palpation, normal palpation, uterine shape normal and non-tender Bimanual Exam- Adnexa, other: normal adnexae Neuro General: patient oriented x3 Office Procedures Endometrial Biopsy Details: The patient is here today for an endometrial biopsy due to endometrial cells on her Pap smear to rule out any pathology including atypical, hyperplasia or cancer cells of the uterus. She was counseled regarding anticipatory guidance for the procedure including the risks for pain, infection, bleeding, perforation, potential injury to the tissues may include the cervix, uterus, tubes, bladder and bowels. These injuries may include further treatment and evaluation including surgery, blood transfusions, antibiotics, hospitalizations and anesthesia. Permanent injury and scarring can occur. She was consented for the procedure, and the consent forms were signed. She is agreeable to have the procedure today. All questions were answered. Endometrial Biopsy Procedure: The patient was placed in the dorsal lithotomy position and a sterile speculum inserted. Using aseptic technique for the procedure. The cervix was cleansed with Betadine x 3 swabs. A single toothed tenaculum was placed on the cervix for stabilization and the uterus was sounded to [ ] cm with a 4mm pipelle, and tissue sample obtained. Minimal bleeding was observed. The tissue sample was placed in formalin in a patient labeled container by staff assisting and sent to the pathology department for processing and interpretation. The patient tolerate the procedure well and was in good condition when leaving the department. Endometrial Biopsy Post Procedure Care: Nothing in the vagina including: tampons, douching or intimacy until all the bleeding has subsided. There may be some post procedure bleeding for several days, this bleeding is usually light and may turn to a light brown or pink color. Mild cramps may occurs. Nothing in the vaginal including: tampons, douching, or intimacy until all the bleeding has subsided. You may take an over the counter mild analgesic such as Tylenol or Advil (if no allergies) per the manufactures recommendation on dosing, frequency, and follow the directions completely. Call the office if any: fever (over 100.4), flu like symptoms, abdominal pain (worse than cramping), foul smelling, infected appearing vaginal discharge, or heavy bleeding. If indicated: Use condoms to prevent and STI's, and only after the bleeding has stopped completely. Return to the office in 2 weeks for results and plan of care. This note is constructed using voice recognition software. While every effort has been made to ensure accuracy, assembler metal building errors may have been included. [id number] Biopsy Results AMB Test Urine AMB Test Urine Negative Last Edit by BRE Herrmann on 06/09/24 12:52 Results Reviewed Results Reviewed: Laboratory Last Values [facility]st Clinic Negative 06/09/24 12:52 Assessment & Plan Assessment & Plan (1) Urinary frequency: Code(s): R35.0 - Frequency of micturition Category: Medical (2) Endometrial cells on cervical Pap smear inconsistent w/LMP: Code(s): R87.619 - Unspecified abnormal cytological findings in specimens from cervix uteri Plan See procedure notes. Advised to monitor her cycles, diagnosis of menopause is after 12 months of completed absence of menses. To call sooner if there is any closely spaced bleeding episodes or prolonged heavy bleeding. Appointment in 2 weeks for EMB results to be made. All of her questions and concerns were addressed to the best of my ability and shared decision making. She is agreeable to the plan of care. This note is constructed using voice recognition software. While every effort has been made to ensure accuracy, assembler metal building errors may have been included. Orders: Orders AMB HCG Urine Test Today Z32.02 - Encounter for test, result negative Surgical Today R87.618 - Other abnormal cytological findings on specimens from cervix uteri Referrals Urology Referral R35.0 - Frequency of micturition Coding Level of Care Code Procedure Only Diagnoses Urinary frequency R35.0 Endometrial cells on cervical Pap smear inconsistent w/LMP R87.619 CPT Codes Endometrial Biopsy - CPT: 47167-Fsxofxhmsac Biopsy ([id number])
[2024-06-09 12:49] VITALS: BP 120/80
== END 2024-06-09 17:00 ==
LOC: HO.HWS 12:39
PROVIDERS: PCP Nurse Practitioner Family; Visit Provider Advanced Practice Midwife
DX: R87.619 Unspecified abnormal cytological findings in specimens from cervix uteri (principal); R35.0 Frequency of micturition; Z32.02 Encounter for pregnancy test, result negative
CPT/HCPCS: 58100

== ENCOUNTER 2024-06-15 14:32 | Outpatient (AMB) | payer MEDICARE, MEDICAID, SELFPAY ==
--- NOTE | 2024-06-15 14:34 | MHC.OFFVIS ---
Vital Signs 06/15/24 14:41 Height 5 ft 2 in Weight 124 lb BMI 22.7 BP 140/90 H Blood Pressure Location Lt brachial Position Sitting Respiration 12 Pulse 84 Pulse Source Pulse Oximeter Pulse Oximetry (%) 98 Oxygen Delivery Method Room Air Intake Visit Reasons: Dorsalgia Intake Note: Patient comes in for initial visit to discuss bilateral low back pain that radiates to legs. Allergies bupropion [From Wellbutrin] Allergy (Intermediate, Verified 06/15/24 14:39) mouth swelling Penicillins [PENICILLINS] Allergy (Intermediate, Verified 06/15/24 14:39) HIVES naproxen Allergy (Mild, Verified 06/15/24 14:39) upset stomach HPI HPI Dorsalgia: Details: This is a 48-year-old female with history of a generalized anxiety disorder, major depressive disorder, HPV, HSV, fibromyalgia, current tobacco smoker, chronic low back pain presents today for initial evaluation of low back pain with bilateral radiculopathy, worse on the left. Denies any recent trauma, injury or falls. Patient reports she was managed in pain clinic in [place] about 8 years ago and completed physical therapy 2-4 years ago and underwent multiple injections and was on chronic opioid therapy with Percocet and Soma. Back pain is axial and also radiates to both legs, primarily to the left buttock and into the left lower extremity not below knee level on the left. Patient also presents with localized tenderness in the projection of left SI joint area. No imaging is available to review for today. Pain is most severe during the day and middle of the night, pain is rated at 8/10. Pain affects her daily activities, mobility, and sleep. Patient is interested to undergo left therapeutic SI joint injection as initial steps. She also requests referral for chiropractic therapy. Denies any fever or chills, abdominal or groin pain, weakness, footdrop, bladder or bowel dysfunction, or saddle anesthesia. Oswestry low back disability score=14 (mild disability) Location: Low back pain with radiation into left lower extremity and left buttock Duration: Chronic pain for many years Characteristics of symptom or complaint: Aching, spasming, stabbing, shooting, throbbing, radiating, cramping, sore Aggravating or associated factors: Prolonged walking and standing, cold weather Relieving factors: Tylenol, NSAIDs, hot shower, OTC cream Treatment: PT and back injections, Soma/Percocet in previous pain clinic in [facility] Medical History Smoking Anxiety with depression Elevated triglycerides with high cholesterol Acute exacerbation of asthma with allergic rhinitis 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 Graves disease Thrombocytopenia Hyperlipidemia Fibromyalgia Herpes infection No pertinent past medical history Surgical History H/O LEEP History of cholecystectomy History of tubal ligation History of surgery History of section Family History Father Medical history unknown Mother Alcoholic Liver cancer Maternal Grandmother Diabetes Other Substance abuse Social History Housing: House Alcohol intake: former Patient Tobacco Use Status: Current someday Tobacco user Cigarettes Per Day: 1 Years Smoked: 20+ e-Cigarette/Vaping Use: Former Use Second Hand Smoke Exposure: Yes service: No Current occupational status: disabled Current occupational exposures/hazards: No Sexual orientation: Straight/Heterosexual Gender identity: Female Cognitive needs: No Hearing needs: No Vision needs: No Review of Systems Const All systems reviewed & are unremarkable except as noted in HPI and below Physical Exam Vital Signs: Last Vital Signs Pulse 84 06/15/24 14:41 Resp 12 06/15/24 14:41 BP 140/90 H 06/15/24 14:41 Pulse Ox 98 06/15/24 14:41 Oxygen Delivery Method Room Air 06/15/24 14:41 BMI result Body Mass Index 22.7 General: Appears afebrile. No acute distress. Alert and oriented. Mood and affect appropriate. Follows and participates in conversation appropriately. Respiratory effort is unlabored. No cough. Able to transition from sit to stand unassisted. Ambulates with bilaterally normal heel strike and toe off. General: Yes no CVA tenderness Back/Spine/Pelvis Other: Patient is able to walk and stand on heels and tip toes with no difficulties demonstrating good motor tone. No limping. Can flex forward to 70-75 degrees and extend to 5-10 degrees before experiencing lumbar pain. Demonstrates 5/5 strength of quadriceps bilaterally as well as flexion/dorsiflexion of bilateral feet against resistance. 2+ pedal pulses bilaterally. Seated straight leg rise with dorsiflexion negative bilaterally. +2 patellar and achilles reflexes bilaterally. Facet loading test positive bilaterally. Melly sign, Jorge?s, Gaenslen, Pelvic compression and Stinchfield tests are positive on the left. No groin pain with I/E hip rotations. Significant paraspinals tenderness right side, thoracic/mid and lower back. Valsalva maneuver negative. Back: no CVA tenderness Cervical Spine: cervical ROM normal, cervical muscular tenderness and No Cervical spine tenderness Thoracic/Lumbar Spine: thoracic and lumbar spine normal to inspection, No Thoracic/lumbar spine scar(s), Lasegue's sign negative, straight leg raise negative bilaterally, pain with thoraco-lumbar ROM, paraspinal muscle tenderness, thoraco-lumbar ROM limited, No thoracic spinal tenderness and lumbar spinal tenderness at L3, at L4 and at L5 Pelvis: buttock tenderness on the left Sacroiliac joints: on the right nontender and on the left tender to palpation Results Reviewed Results Reviewed: No imaging reports are available for review today. Assessment & Plan Assessment & Plan (1) Fibromyalgia: Code(s): M79.7 - Fibromyalgia Category: Medical (2) Muscle spasm: Code(s): M62.838 - Other muscle spasm Category: Medical (3) Sacroiliac joint pain: Code(s): M53.3 - Sacrococcygeal disorders, not elsewhere classified Category: Medical (4) Lumbar spondylosis: Code(s): M47.816 - Spondylosis without myelopathy or radiculopathy, lumbar region Category: Medical (5) Sacroiliac joint pain: Code(s): M53.3 - Sacrococcygeal disorders, not elsewhere classified Category: Medical (6) Chronic back pain: Code(s): M54.9 - Dorsalgia, unspecified; G89.29 - Other chronic pain Category: Medical Qualifiers: Back pain laterality: bilateral Back pain location: low back pain Sciatica presence: without sciatica Qualified Code(s): M54.50 - Low back pain, unspecified; G89.29 - Other chronic pain Plan Lumbar spine and SIJ imaging to assess degree of degenerative changes, any subluxation, listhesis, compression fractures or pars defects. Chiropractic Referral placed per patient request. She completed physical therapy in the past with minimal improvement. Schedule left therapeutic SI joint injection with local and fluoroscopy. We also discussed peripheral nerve stimulation, SI joint fusion, RFA procedures for a longer-term pain relief which patient denied at this time. Informational pamphlets provided to patient. Expectations, risks and benefits were reviewed. Patient is aware she will be contacted to schedule this procedure. Scripts provided for tizanidine and lidocaine patches. Side effects and precautions were reviewed with patient. Continue daily physical activity, adequate hydration, well-balanced diet, good posture, consider aquatherapy and CBT for fibromyalgia. All questions were answered and the patient is in agreement of plan. Follow-up after injections/xrays review and sooner as needed. Orders: Orders XR lumbar spine 4V min 06/15/24 M47.816 - Spondylosis without myelopathy or radiculopathy, lumbar region, M53.3 - Sacrococcygeal disorders, not elsewhere classified XR sacroiliac joint min 3V 06/15/24 M47.816 - Spondylosis without myelopathy or radiculopathy, lumbar region, M53.3 - Sacrococcygeal disorders, not elsewhere classified Referrals Chiropractic Referral G89.29 - Other chronic pain, M47.816 - Spondylosis without myelopathy or radiculopathy, lumbar region, M53.3 - Sacrococcygeal disorders, not elsewhere classified, M54.50 - Low back pain, unspecified, M62.838 - Other muscle spasm Medications: New tizanidine 4 mg PO BID 30 days PRN 60 tabs 0RF muscle spasm M62.838 - Other muscle spasm, M79.7 - Fibromyalgia lidocaine 5% leave on most painful area for up to 12 hrs topically daily; 30 days 30 ea 3RF pain M47.816 - Spondylosis without myelopathy or radiculopathy, lumbar region, M53.3 - Sacrococcygeal disorders, not elsewhere classified Discontinued valacyclovir suppressive theraoy Discontinued Reason: Patient Completed Course 1,000 mg PO DAILY 90 tabs 1RF B00.9 - Herpesviral infection, unspecified Coding Level of Care Code New Pt Level 4 (32658) Complex EM visit Add On G2211 Diagnoses Fibromyalgia M79.7 Muscle spasm M62.838 Sacroiliac joint pain M53.3 Lumbar spondylosis M47.816 Chronic bilateral low back pain without sciatica M54.50; G89.29 Back pain laterality: bilateral Back pain location: low back pain Sciatica presence: without sciatica
[2024-06-15 14:41] VITALS: BP 140/90; PULSE 84; RESP 12; O2SAT 98; BMI 22.7
== END 2024-06-15 15:12 | disposition home or self-care (01) ==
PROVIDERS: Visit Provider Nurse Practitioner Family
DX: M79.7 Fibromyalgia (principal); M62.838 Other muscle spasm; M53.3 Sacrococcygeal disorders, not elsewhere classified; M47.816 Spondylosis without myelopathy or radiculopathy, lumbar region; M54.50 Low back pain, unspecified; G89.29 Other chronic pain
CPT/HCPCS: 99204; G2211

== ENCOUNTER → 2024-06-15 14:32 | Outpatient (BNVA) | payer MEDICARE, MEDICAID, SELFPAY | PROVIDERS: Visit Provider Nurse Practitioner Family | DX: M54.9 Dorsalgia, unspecified (principal); G89.29 Other chronic pain; M79.7 Fibromyalgia; M62.838 Other muscle spasm; M53.3 Sacrococcygeal disorders, not elsewhere classified; M47.816 Spondylosis without myelopathy or radiculopathy, lumbar region | CPT/HCPCS: 99202 ==

== ENCOUNTER 2024-06-21 15:27 | Outpatient (AMB) | payer MEDICARE, MEDICAID, SELFPAY ==
--- NOTE | 2024-06-21 15:32 | A.OFFPC_ITS ---
Vital Signs 06/21/24 15:33 Height 5 ft 2 in Weight 125 lb BMI 22.9 BP 110/80 Blood Pressure Location Rt brachial Position Sitting Respiration 16 Pulse 76 Pulse Source Pulse Oximeter Temp 98.5 F Temp Source Tympanic Pulse Oximetry (%) 98 Oxygen Delivery Method Room Air Intake Visit Reasons: 6-8 weeks 30 min fu labs, new inhaler Intake Note: f/u labs Allergies bupropion [From Wellbutrin] Allergy (Intermediate, Verified 06/21/24 15:55) mouth swelling Penicillins [PENICILLINS] Allergy (Intermediate, Verified 06/21/24 15:55) HIVES naproxen Allergy (Mild, Verified 06/21/24 15:55) upset stomach Medication List - Last Reconciled 06/21/24 by SHERWIN Sandoval- acetaminophen ER (Tylenol 8 Hour) 650 mg PO Q8H PRN albuterol sulfate 90 mcg/actuation (ProAir HFA) 2 puffs inhalation Q4-6H PRN 30 days albuterol sulfate 2.5 mg (3 mL) inhalation Q4-6H PRN 3 months atorvastatin 40 mg PO BEDTIME cetirizine 10 mg PO DAILY fenofibrate 160 mg PO DAILY fluticasone propion-salmeterol 113-14 mcg/actuation (AirDuo RespiClick) 1 inh inhalation BID fluticasone propionate 50 mcg/actuation 2 sprays intranasal DAILY ibuprofen 600 mg PO TID lidocaine 5% leave on most painful area for up to 12 hrs topically daily; 30 days nebulizers nebulizer device nicotine (polacrilex) 2 mg buccally PRN; tizanidine 4 mg PO BID PRN 30 days Tobacco use date assessed: 05/04/24 Dental Screening Dental Screen Date: 12/07/23 HPI HPI Comments History of Present Illness Details 48-year-old female with generalized anxi ety disorder, major depressive disorder, HPV, HSV, fibromyalgia, hyperlipidemia, current tobacco smoker, mild intermittent asthma, seasonal allergies, Graves disease, chronic low back pain Status post , cleft palate repair, tubal ligation, cholecystectomy, LEEP Health Maintenance: ? Colon reports she is waiting on appt for this ? Mammo declined ? DEXA still getting her periods ? PAP 09/2023 ? 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 The inhaler helps a little. Cont to have a hard time inhaling it. However does admit some improvement Was not able to get ENT appt sooner; appt is pending in Aug 2024. for lesion inside mouth Did have appt w/ Pain Mgmt. Consult note reviewed. Wants to do SI joint injection on the L. She states lidocaine 5% patches denied by insurance. Did go to Chiro. Tanya knocked her out. Taking half a tab. >> I sent in RX for lidocaine 4% Smoking cessation - has reduced the # cigs she smokes per day. on NRT. Will continue to work on this. C/o panic attacks. Not active w/ counselor, has been on propanolol in the past and other meds w/o effect. She did not get her labs done, however she did go to the lab during the visit. General: Appear older than stated age, chronically ill Eyes: Pupils are equal, round and reactive to light and accommodation. Conjunctivae are clear. strabismus, mild exophthalmos Mouth: Inside of right cheek is a red raised lesion with a white Center, No inflammation, no post nasal drip, no plaques nor exudates. edentulous, angular chelosis Neck: Supple, no adenopathy or thyromegaly. Lungs: Clear to auscultation bilaterally. No rales, rhonchi or wheeze noted. Diminished throughout all kapoor. Heart: Regular rate and rhythm. No murmurs, click, rubs or gallops are noted. Abdomen: Round, protuberant, prominent vessels, nontender, hepatomegaly, no hernia, normoactive bowel sounds . Skin: No rashes, ulcers, or lesions noted. Turgor is good. Skin color is good. Hair and nails are without abnormalities. Psych: Normal eye contact, affect and mood appropriate, and normal intera ctions. Patient is alert and appropriate to context. Plan: Start Nystatin Cont Inhalers SMoking cessation Lidocaine 4% cont care w/ care team labs done today start buspar 7.5 mg po bid for anxiety RTO in 6 weeks to fu on labs and all of the above, sooner PRN This note is constructed using voice recognition software. While every effort has been made to ensure accuracy in music promoter, still errors may have been included Sometimes, these errors may affect the content or meaning of the given sentence . Total time spent caring for the patient today was 30 minutes. This includes time spent before the visit reviewing the chart, time spent during the visit, and time spent after the visit on documentation [facility] Medical History Smoking Anxiety with depression Elevated triglycerides with high cholesterol Acute exacerbation of asthma with allergic rhinitis 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 Graves disease Thrombocytopenia Hyperlipidemia Fibromyalgia Herpes infection No pertinent past medical history Surgical History H/O LEEP History of cholecystectomy History of tubal ligation History of surgery History of section Family History Father Medical history unknown Mother Alcoholic Liver cancer Maternal Grandmother Diabetes Other Substance abuse Social History Housing: House Alcohol intake: former Patient Tobacco Use Status: Current someday Tobacco user Cigarettes Per Day: 1 Years Smoked: 20+ e-Cigarette/Vaping Use: Former Use Second Hand Smoke Exposure: Yes service: No Current occupational status: disabled Current occupational exposures/hazards: No Sexual orientation: Straight/Heterosexual Gender identity: Female Cognitive needs: No Hearing needs: No Vision needs: No Questionnaire Thrive Questionnaire Date Thrive assessed: 12/07/23 RONNIE-7 AMB Questionnaire RONNIE-7 Date RONNIE - 7 assessed: 12/07/23 Source: Developed by Drs. Sergio Goins, Mary Corrales, Ra Wayne and colleagues, with an educational huseyin from [employer]. Physical exam (Primary Care) Vital Signs: Last Vital Signs Temp 98.5 F 06/21/24 15:33 Pulse 76 06/21/24 15:33 Resp 16 06/21/24 15:33 BP 110/80 06/21/24 15:33 Pulse Ox 98 06/21/24 15:33 Oxygen Delivery Method Room Air 06/21/24 15:33 BMI result Body Mass Index 22.9 Tobacco/Smoking Status: Tobacco use Status Tobacco use date assessed 05/04/24 06/21/24 15:37 Patient Tobacco Use Status Current someday Tobacco 06/21/24 15:37 e-Cigarette/Vaping Use Former Use 06/21/24 15:37 Are you ready to quit: No Tobacco cessation counseling provided: Yes Items discussed: Other Relapse Prevention: discussed the importance of a supportive environment, discussed extending NRT, discussed negative mood or depression after quitting, weight gain after smoking is common and discussed dietary, exercise and/or lifestyle changes Number of minutes spent counselin CPT code: 52809 - 4-10 Minutes Thrive Assessment: Date of Thrive Assessment Date Thrive assessed 12/07/23 06/21/24 15:37 Assessment and Plan Assessment & Plan (1) Angular cheilitis: Code(s): K13.0 - Diseases of lips (2) Tobacco dependence with current use: Code(s): F17.200 - Nicotine dependence, unspecified, uncomplicated (3) Asthma, mild intermittent, poorly controlled: Code(s): J45.20 - Mild intermittent asthma, uncomplicated (4) RONNIE (generalized anxiety disorder): Code(s): F41.1 - Generalized anxiety disorder Medications: New lidocaine 4% on for 12 hours off for 12 hours 1 patch topical DAILY PRN 30 ea 4RF pain buspirone 7.5 mg PO BID 30 tabs 1RF nystatin administer 1/2 of dose in each side of the mouth 500,000 units (5 mL) PO DAILY 30 weeks 1,050 mL 0RF Refilled nicotine (polacrilex) 2 mg buccally PRN; 108 ea 0RF nicotine cravings Discontinued lidocaine 5% Discontinued Reason: Insurance Denied leave on most painful area for up to 12 hrs topically daily; 30 days 30 ea 3RF pain M47.816 - Spondylosis without myelopathy or radiculopathy, lumbar region, M53.3 - Sacrococcygeal disorders, not elsewhere classified Coding Level of Care Code Est Pt Level 4 (32142) Complex EM visit Add On G2211 Diagnoses Angular cheilitis K13.0 Tobacco dependence with current use F17.200 Asthma, mild intermittent, poorly controlled J45.20 RONNIE (generalized anxiety disorder) F41.1 Additional Codes Vital Signs *Quality* - CPT code: 94418 - 4-10 Minutes ([id number])
[2024-06-21 15:33] VITALS: BP 110/80; PULSE 76; RESP 16; TEMP 36.9; O2SAT 98; BMI 22.9
== END 2024-06-21 16:17 | disposition home or self-care (01) ==
PROVIDERS: Visit Provider Nurse Practitioner Family
DX: K13.0 Diseases of lips (principal); F17.200 Nicotine dependence, unspecified, uncomplicated; J45.20 Mild intermittent asthma, uncomplicated; F41.1 Generalized anxiety disorder
CPT/HCPCS: 99214; 99406; G2211

== ENCOUNTER 2024-06-21 15:47 | Outpatient (REF) | payer MEDICARE, MEDICAID, SELFPAY ==
[2024-06-21 17:46] LABS: Hematocrit 38.2 % (37.0-47.0); Hemoglobin 12.5 g/dl (12.0-16.0); Mean Corpuscular HGB Conc 32.7 g/dl (31.0-35.0); Mean Corpuscular Hemoglobin 30.5 pg (27.0-33.0); Mean Corpuscular Volume 93.2 fL (80.0-98.0); PLT CLUMP 1; Red Cell Distribution Width 13.6 % (11.0-16.0)
[2024-06-21 17:56] LABS: Estimated Average Glucose 100 mg/dL; Hemoglobin A1c % 5.1 % (<6.0)
[2024-06-21 18:01] LABS: Platelet Count 149 X10*3/uL (160-400); White Blood Count 12.1 X10*3/uL (4.8-10.8)
[2024-06-21 18:02] LABS: Mean Platelet Volume 14.7 fL (9.4-12.3)
[2024-06-21 18:15] LABS: Alanine Aminotransferase 23 U/L (0-31); Albumin Level 4.3 g/dL (3.5-5.0); Alkaline Phosphatase 48 U/L (39-117); Anion Gap 14 (12-20); Aspartate Amino Transferase 19 U/L (5-31); Bilirubin Total 0.4 mg/dL (0.0-1.0); Blood Urea Nitrogen 10 mg/dL (9-16); Calcium 8.8 mg/dL (8.4-10.2); Carbon Dioxide 25 mmol/L (22-29); Chloride 107 mmol/L (96-108); Estimated Glomerular Filt Rate > 60; Gamma Glutamyl Transpeptidase 20 U/L (7-33); Glucose Random 93 mg/dL (60-115); Iron 69 mcg/dL (30-160); Lactate Dehydrogenase 179 U/L (122-220); Percent Iron Saturation 19 % (15-50); Potassium 3.6 mmol/L (3.3-5.1); Sodium 142 mmol/L (135-145); Total Iron Binding Capacity 372 mcg/dL (228-428); Total Protein 7.3 g/dL (6.5-8.0); Unsaturated Iron Binding 303 ug/dL
[2024-06-21 18:31] LABS: Ferritin 81 ng/mL (10-250)
[2024-06-21 18:44] LABS: Folate 4.2 ng/mL (> or = 4.0); Vitamin B12 304 pg/mL (200-900)
[2024-06-22 04:49] LABS: HBS Num1 0.64 mIU/mL (0-7.99); HBc Num1 0.19 S/CO (0.00-0.79); HBsAGNum1 0.38 S/CO (0.00-0.99); HIV AB/AG Nonreactive (Nonreactive); HIV Num 1 0.05 S/CO (0.00-0.99); Hepatitis B Core Antibody Nonreactive (Nonreactive); Hepatitis B Surface Antigen Negative (Negative); ~Hepatitis B Surface Antibody NONREACTIVE (Nonreactive); ~Hepatitis C Antibody Nonreactive (Nonreactive)
[2024-06-22 05:07] LABS: Hepatitis A Antibody IgM 0.13 Index (0-0.79); ~Hepatitis A Antibody IgM Nonreactive (Nonreactive)
[2024-06-23 15:59] LABS: LDL Cholesterol Direct 115 mg/dL (<100)
== END 2024-06-21 15:48 | disposition home or self-care (01) ==
LOC: HO.WFDLDS 15:47
PROVIDERS: Visit Provider Nurse Practitioner Family
DX: Z00.00 Encounter for general adult medical examination without abnormal findings (principal); D69.6 Thrombocytopenia, unspecified; E78.5 Hyperlipidemia, unspecified; R14.0 Abdominal distension (gaseous); Z13.1 Encounter for screening for diabetes mellitus
CPT/HCPCS: 36415; 80053; 82607; 82728; 82746; 82977; 83036; 83540; 83615; 83721; 84443; 85027; 86704; 86706; 86709; 86803; 87340; 87389

== ENCOUNTER 2024-06-23 14:03 | Outpatient (AMB) | payer MEDICARE, MEDICAID, SELFPAY ==
--- NOTE | 2024-06-23 14:16 | MHC.OFFVIS ---
Intake Visit Reasons: EMB results Tightening Machine Operator: Tightening Machine Operator Present Allergies bupropion [From Wellbutrin] Allergy (Intermediate, Verified 06/21/24 15:55) mouth swelling Penicillins [PENICILLINS] Allergy (Intermediate, Verified 06/21/24 15:55) HIVES naproxen Allergy (Mild, Verified 06/21/24 15:55) upset stomach Is last menstrual period known: Yes HPI Comments Details: Patient is here today for EMB results, history of endometrial cells on her Pap smear. Menses are spacing, she has not gone a year without a cycle. 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 Graves disease Thrombocytopenia Hyperlipidemia Fibromyalgia Herpes infection No pertinent past medical history Surgical History H/O LEEP History of cholecystectomy History of tubal ligation History of surgery History of section Family History Father Medical history unknown Mother Alcoholic Liver cancer Maternal Grandmother Diabetes Other Substance abuse Social History Housing: House Alcohol intake: former Patient Tobacco Use Status: Current someday Tobacco user Cigarettes Per Day: 1 Years Smoked: 20+ e-Cigarette/Vaping Use: Former Use Second Hand Smoke Exposure: Yes service: No Current occupational status: disabled Current occupational exposures/hazards: No Sexual orientation: Straight/Heterosexual Gender identity: Female Cognitive needs: No Hearing needs: No Vision needs: No Review of Systems Const All systems reviewed & are unremarkable except as noted in HPI and below Endo Reports no additional complaints Physical Exam Const General: cooperative, healthy appearing and no acute distress Psych Appearance: well kempt Attitude: cooperative Thought process: Normal thought process present Results Reviewed Results Reviewed: Name: Allyson Rivera Age/Sex: 48/F Attending: Twyla Jimenes CNM : 1975 Submitted by: Twyla Jimenes CNM Copies to: Kisha MoeP- MR #: [id number] Status: DEP REF Collected: 06/09/24 Location: .LAB Received: 06/13/24 Diagnosis Endometrium, biopsy: Disordered proliferative endometrium; fragment with features of polyp; no atypia identified. Clinical History Endometrial cells on pap Microscopic Description Microscopic sections reviewed. Material Received Endometrial biopsy Gross Description Received in formalin labeled ?EMB? is a 1.8 x 1.5 x 0.5 cm aggregate of multiple irregular and tubular cast fragments of congested and hemorrhagic red-maroon tissue, mucus and blood, submitted in toto in a cassette labeled A. CEDS Copies To Twyla Jimenes CNM [facility] [address] [place] [address] Drive [address] [place] [id number] Kisha Moe [address] [address] [email or web address] NOTE: Unless otherwise stated, all tissue is formalin-fixed and paraffin-embedded. Some or all of the immunohistochemical tests reported herein may have been developed and their performance characteristics determined by [facility]. They have not been cleared or approved by the U.S. Food and Drug Administration (FDA). However, the FDA has determined that such clearance or approval is not necessary. This laboratory is certified under the Clinical Laboratory Improvement Amendments of Patient: Allyson Rivera Age/Sex: 48/F MR#: [id number] Page 1 of 2 Assessment & Plan Assessment & Plan (1) Endometrial polyp: Code(s): N84.0 - Polyp of corpus uteri (2) Encounter to discuss test results: Code(s): Z71.2 - Person consulting for explanation of examination or test findings Plan Discussed: Endometrial biopsy results show polyp fragment, no atypia. Recommended hysteroscopy for removal of a polyp within the endometrium, the procedural general information provided. All of her questions and concerns were addressed to the best of my ability and shared decision making. She is agreeable to the plan of care. Plan scheduling with Dr. Paz for consult. Advised to monitor her cycles if any heavy prolonged or closely spaced cycles-bleeding episodes to report to the office sooner. This note is constructed using voice recognition software. While every effort has been made to ensure accuracy, international student advisor errors may have been included. Coding Level of Care Code Est Pt Level 3 (02862) Diagnoses Endometrial polyp N84.0 Encounter to discuss test results Z71.2
== END 2024-06-23 14:39 | disposition home or self-care (01) ==
LOC: HO.HWS 14:03
PROVIDERS: Visit Provider Advanced Practice Midwife
DX: N84.0 Polyp of corpus uteri (principal); Z71.2 Person consulting for explanation of examination or test findings
CPT/HCPCS: 99213

== ENCOUNTER → 2024-06-23 14:03 | Outpatient (BNVA) | payer MEDICARE, MEDICAID, SELFPAY | PROVIDERS: Visit Provider Advanced Practice Midwife | DX: N84.0 Polyp of corpus uteri (principal); Z71.2 Person consulting for explanation of examination or test findings | CPT/HCPCS: 99212 ==

== ENCOUNTER 2024-07-07 13:02 | Outpatient (AMB) | payer MEDICARE, MEDICAID, SELFPAY ==
--- NOTE | 2024-07-07 13:03 | A.OFFPC_ITS ---
Vital Signs 07/07/24 13:06 Height 5 ft 2 in Weight 124 lb 4 oz BMI 22.7 BP 132/70 Blood Pressure Location Lt brachial Position Sitting Respiration 15 Pulse 83 Pulse Source Pulse Oximeter Temp 98.0 F Temp Source Oral Pulse Oximetry (%) 97 Oxygen Delivery Method Room Air Intake Visit Reasons: Stomach cramps Intake Note: Patient complaining of lower back pain x 1 week. Allergies bupropion [From Wellbutrin] Allergy (Intermediate, Verified 07/07/24 13:18) mouth swelling Penicillins [PENICILLINS] Allergy (Intermediate, Verified 07/07/24 13:18) HIVES naproxen Allergy (Mild, Verified 07/07/24 13:18) upset stomach Medication List - Last Reconciled 07/07/24 by SHERWIN Sandoval-CORI acetaminophen ER (Tylenol 8 Hour) 650 mg PO Q8H PRN albuterol sulfate 90 mcg/actuation (ProAir HFA) 2 puffs inhalation Q4-6H PRN 30 days albuterol sulfate 2.5 mg (3 mL) inhalation Q4-6H PRN 3 months atorvastatin 40 mg PO BEDTIME buspirone 7.5 mg PO BID cetirizine 10 mg PO DAILY fenofibrate 160 mg PO DAILY fluticasone propion-salmeterol 113-14 mcg/actuation (AirDuo RespiClick) 1 inh inhalation BID fluticasone propionate 50 mcg/actuation 2 sprays intranasal DAILY ibuprofen 600 mg PO TID lidocaine 4% 1 patch topical DAILY PRN nebulizers nebulizer device nicotine (polacrilex) 2 mg buccally PRN; nystatin 500,000 units (5 mL) PO DAILY 30 weeks tizanidine 4 mg PO BID PRN 30 days Tobacco use date assessed: 05/04/24 Dental Screening Dental Screen Date: 12/07/23 HPI HPI Comments History of Present Illness Details 48-year-old female with generalized anxi ety disorder, major depressive disorder, HPV, HSV, fibromyalgia, hyperlipidemia, current tobacco smoker, mild intermittent asthma, seasonal allergies, Graves disease, chronic low back pain Status post , cleft palate repair, tubal ligation, cholecystectomy, LEEP Here today w/ c/o abd cramping assoc w/ loss of taste last week. Also very tired. Since then, cramping has resolved. Sense of taste is better. She feels like her energy level is low. just dont feel good States she felt this way last time she had COVID. Did not test. Reports normal for her bowel movements. Normal urination. Normal food intake. She has not had a colonoscopy. She was referred but did not schedule appt. Offered cologaurd today and she declined. Was on a road trip when her sx started. In [place]. Admits poor fluid intake while traveling. She also c/o RUQ/rib pain, worse w/ deep breathing that comes and goes. She is already s/p lap prashant Talks to me today about the CHEMICAL ENGINEER consult, the 2 notes were reviewed Most recent one 06/2024: Recommended hysteroscopy for removal of a polyp within the endometrium She states this is scheduled in September and she does not think she can do this given the holiday season. Having chronic back pain. Referred to pain mgmt. Note from 06/14/24 reviewed: left therapeutic SI joint injection This is scheduled 07/20/24. Has appt with ENT in 08/2024 for lesion inside of mouth. She did not get lidocaine patch or NRT lozenge. Unsure why. Advised to call the pharmacy. Reviewed with her today: Labs from 06/21/2024 show low RBC 4.10, platelet count 149, elevated platelet volume 14.7 otherwise normal CBC, normal lytes, normal renal function, hemoglobin A1c 5.1%, normal calcium, normal iron profile, normal GGT, normal LFTs, normal LDH, direct LDL 115, normal B12 although low end of normal at 304, normal TSH and folate, negative hepatitis panel, however she is not immune to hepatitis-B therefore should consider vaccinations, HIV negative. Exam: General: Appear older than stated age, chronically ill Eyes: Pupils are equal, round and reactive to light and accommodation. Conjunctivae are clear. strabismus, mild exophthalmos Mouth: Inside of right cheek is a red raised lesion with a white Center, No inflammation, no post nasal drip, no plaques nor exudates. edentulous, angular chelosis Neck: Supple, no adenopathy or thyromegaly. Lungs: Clear to auscultation bilaterally. No rales, rhonchi or wheeze noted. Diminished throughout all kapoor. Heart: Regular rate and rhythm. No murmurs, click, rubs or gallops are noted. Abdomen: Round, protuberant, prominent vessels,,+ hepatomegaly, no hernia, normoactive bowel sounds c/o pressure w/ suprapubic palpation. No CVAT. Respiratory cessation w/ deep breathing, holds her right upper quad. Skin: No rashes, ulcers, or lesions noted. Turgor is good. Skin color is good. Hair and nails are without abnormalities. Psych: Normal eye contact, affect and mood appropriate, and normal interactions. Patient is alert and appropriate to context. Plan: EKG done WNL UA done WNL I did advise her today that her workup was benign along with her physical exam. Offered to check a D-dimer to rule out PE however she does not wish to get any blood work done. I have advised for her to follow up with pain management for her injection to help her pain. She should also follow up with industrial relations counselor for her hysteroscopy. Advised her to call her pharmacy to see why she has not been able to get the lidocaine patches or nicotine replacement therapy. Smoking cessation reviewed once again today. Monitor symptoms. If they return or worsen advised to return to the office. This note is constructed using voice recognition software. While every effort has been made to ensure accuracy in accounts receivable assistant, still errors may have been included Sometimes, these errors may affect the content or meaning of the given sentence . Total time spent caring for the patient today was 45 minutes. This includes time spent before the visit reviewing the chart, time spent during the visit, and time spent after the visit on documentation 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 Graves disease Thrombocytopenia Hyperlipidemia Fibromyalgia Herpes infection No pertinent past medical history Surgical History H/O LEEP History of cholecystectomy History of tubal ligation History of surgery History of section Family History Father Medical history unknown Mother Alcoholic Liver cancer Maternal Grandmother Diabetes Other Substance abuse Social History Housing: House Alcohol intake: former Patient Tobacco Use Status: Current someday Tobacco user Cigarettes Per Day: 1 Years Smoked: 20+ Packs per year/per ci.00 e-Cigarette/Vaping Use: Former Use Second Hand Smoke Exposure: Yes service: No Current occupational status: disabled Current occupational exposures/hazards: No Sexual orientation: Straight/Heterosexual Gender identity: Female Cognitive needs: No Hearing needs: No Vision needs: No Questionnaire Thrive Questionnaire Date Thrive assessed: 12/07/23 RONNIE-7 AMB Questionnaire RONNIE-7 Date RONNIE - 7 assessed: 12/07/23 Source: Developed by Drs. Sergio Goins, Mary Corrales, Ra Wayne and colleagues, with an educational huseyin from [employer]. Physical exam (Primary Care) Vital Signs: Last Vital Signs Temp 98.0 F 07/07/24 13:06 Pulse 83 07/07/24 13:06 Resp 15 07/07/24 13:06 BP 132/70 07/07/24 13:06 Pulse Ox 97 07/07/24 13:06 Oxygen Delivery Method Room Air 07/07/24 13:06 BMI result Body Mass Index 22.7 Tobacco/Smoking Status: Tobacco use Status Tobacco use date assessed 05/04/24 07/07/24 13:08 Patient Tobacco Use Status Current someday Tobacco 07/07/24 13:08 e-Cigarette/Vaping Use Former Use 07/07/24 13:08 Are you ready to quit: No Tobacco cessation counseling provided: Yes Items discussed: Nicotine replacement and Other Relapse Prevention: discussed the importance of a supportive environment, discussed extending NRT, discussed negative mood or depression after quitting, weight gain after smoking is common and discussed dietary, exercise and/or lifestyle changes Number of minutes spent counselin CPT code: 73135 - 4-10 Minutes Thrive Assessment: Date of Thrive Assessment Date Thrive assessed 12/07/23 07/07/24 13:08 Office Procedures EKG 81435-Mkoeiapqdrrlqerrs, Complete Results AMB Urinalysis, Automated UA Leukoctes 0 Aislinn/uL Last Edit by Hoda Ring MA on 07/07/24 13:45 neg Hoda Ring 07/07/24 13:45 UA Nitrite Negative Last Edit by Hoda Ring MA on 07/07/24 13:45 UA Urobilinogen 3.5 mg/dL Last Edit by Hoda Ring MA on 07/07/24 13:45 UA Protein 0 mg/dL Last Edit by Hoda Ring MA on 07/07/24 13:45 neg Hoda Ring 07/07/24 13:45 UA pH 5.5 Last Edit by Hoda Ring MA on 07/07/24 13:45 UA Blood 0 Gary/uL Last Edit by Hoda Ring MA on 07/07/24 13:45 neg Hoda Ring 07/07/24 13:45 UA Specific [place] 1.010 Last Edit by Hoda Ring MA on 07/07/24 13:4 5 UA Ketone Negative Last Edit by Hoda Ring MA on 07/07/24 13:45 UA Bilirubin 0 mg/dL Last Edit by Hoda Ring MA on 07/07/24 13:45 neg Hoda Ring 07/07/24 13:45 UA Glucose 0 mg/dL Last Edit by Hoda Ring MA on 07/07/24 13:45 neg Hoda Ring 07/07/24 13:45 Results Reviewed Results Reviewed: Laboratory Last Values Urine pH (Auto) 5.5 07/07/24 13:30 Specific [place] (Auto) 1.010 07/07/24 13:30 Urine Protein (Auto) 0 mg/dL 07/07/24 13:30 Glucose (UA)(Auto) 0 mg/dL 07/07/24 13:30 Urine Ketones (Auto) Negative 07/07/24 13:30 Urine Blood (Auto) 0 Gary/uL 07/07/24 13:30 Urine Nitrite (Auto) Negative 07/07/24 13:30 Urine Bilirubin (Auto) 0 mg/dL 07/07/24 13:30 Urine Urobilinogen (Auto) 3.5 mg/dL 07/07/24 13:30 Leukocyte Esterase (Auto) 0 Aislinn/uL 07/07/24 13:30 Assessment and Plan Assessment & Plan Orders: Orders AMB EKG-In Office Today Z13.6 - Encounter for screening for cardiovascular disorders, Z13.9 - Encounter for screening, unspecified AMB Urinalysis Automated Today Z13.6 - Encounter for screening for cardiovascular disorders, Z13.9 - Encounter for screening, unspecified Coding Level of Care Code Est Pt Level 4 (40898) Complex EM visit Add On G2211 CPT Codes EKG - CPT: 90790-Yeghjkgszzipohfvn, Complete ([id number]) Additional Codes Vital Signs *Quality* - CPT code: 84373 - 4-10 Minutes ([id number])
[2024-07-07 13:06] VITALS: BP 132/70; PULSE 83; RESP 15; TEMP 36.7; O2SAT 97; BMI 22.7
== END 2024-07-07 15:12 | disposition home or self-care (01) ==
PROVIDERS: PCP Nurse Practitioner Family; Visit Provider Nurse Practitioner Family
DX: M54.9 Dorsalgia, unspecified (principal); M47.816 Spondylosis without myelopathy or radiculopathy, lumbar region; F17.200 Nicotine dependence, unspecified, uncomplicated; Z13.6 Encounter for screening for cardiovascular disorders; Z13.9 Encounter for screening, unspecified

== ENCOUNTER → 2024-07-07 13:02 | Outpatient (BNVA) | payer MEDICARE, MEDICAID, SELFPAY | PROVIDERS: PCP Nurse Practitioner Family; Visit Provider Nurse Practitioner Family | DX: Z13.6 Encounter for screening for cardiovascular disorders (principal); M54.9 Dorsalgia, unspecified; M47.816 Spondylosis without myelopathy or radiculopathy, lumbar region; R14.0 Abdominal distension (gaseous); F17.200 Nicotine dependence, unspecified, uncomplicated; Z71.6 Tobacco abuse counseling; Z79.899 Other long term (current) drug therapy | CPT/HCPCS: 93005; 99212 ==

== ENCOUNTER 2024-07-20 06:15 | Outpatient (REF) | payer MEDICARE, MEDICAID, SELFPAY | END 2024-07-20 06:16 | disposition home or self-care (01) | LOC: CF 06:15 | PROVIDERS: Visit Provider Internal Medicine | DX: Z13.89 Encounter for screening for other disorder (principal) ==

== ENCOUNTER 2024-08-25 11:55 | Outpatient (AMB) | payer MEDICARE, MEDICAID, SELFPAY ==
--- NOTE | 2024-08-25 11:58 | A.OFFPC_ITS ---
Vital Signs 08/25/24 12:06 Height 5 ft 3 in Weight 124 lb 8 oz BMI 22.1 BP 137/77 Blood Pressure Location Rt brachial Position Sitting Respiration 16 Pulse 84 Pulse Source Pulse Oximeter Temp 97.7 F Temp Source Oral Pulse Oximetry (%) 98 Oxygen Delivery Method Room Air Intake Visit Reasons: cough/sweaty Intake Note: patient here c/o cough/ sweaty Mammography Technician Required: No Is last menstrual period known: No Post menopausal: No Patient : No Allergies bupropion [From Wellbutrin] Allergy (Intermediate, Verified 08/25/24 12:16) mouth swelling Penicillins [PENICILLINS] Allergy (Intermediate, Verified 08/25/24 12:16) HIVES naproxen Allergy (Mild, Verified 08/25/24 12:16) upset stomach Medication List - Last Reconciled 08/25/24 by SHERWIN Sandoval- acetaminophen ER (Tylenol 8 Hour) 650 mg PO Q8H PRN albuterol sulfate 2.5 mg (3 mL) inhalation Q4-6H PRN 3 months albuterol sulfate 90 mcg/actuation 2 puffs inhalation Q4-6H PRN 30 days atorvastatin 40 mg PO BEDTIME buspirone 7.5 mg PO BID cetirizine 10 mg PO DAILY fenofibrate 160 mg PO DAILY fluticasone propion-salmeterol 113-14 mcg/actuation (AirDuo RespiClick) 1 inh inhalation BID fluticasone propionate 50 mcg/actuation 2 sprays intranasal DAILY ibuprofen 600 mg PO TID lidocaine 4% 1 patch topical DAILY PRN nebulizers nebulizer device nicotine (polacrilex) 2 mg buccally PRN; nystatin 500,000 units (5 mL) PO DAILY 30 weeks tizanidine 4 mg PO BID PRN Tobacco use date assessed: 08/25/24 Dental Screening Dental Screen Date: 08/25/24 Did you have a dental visit in the last 12 months?: No Did you have a dental problem in the last 6 months where you did not have access to dental care?: No Was dental information given to patient?: Patient declined HPI HPI Comments History of Present Illness Details 48-year-old female with generalized anxi ety disorder, major depressive disorder, HPV, HSV, fibromyalgia, hyperlipidemia, current tobacco smoker, mild intermittent asthma, seasonal allergies, Graves disease, chronic low back pain Status post , cleft palate repair, tubal ligation, cholecystectomy, LEEP Here today with complaints of flu-like symptoms that started on August 14. She reports that she has had chills, sweats, cough. She did do a virtual urgent care and was prescribed 5 days of prednisone. Reports that this has not helped. She is using her inhalers as directed. Finds better relief of the cough with use of a nebulizer. Overall she feels fatigued and sweaty. Exam: Awake alert NAD Sclera and conjunctiva clear bilat Nares with clear drainage, turbinates within normal limits, no sinus tenderness with palpation bilat TM intact mild congestion bilat MMM, pharynx posterior pharynx w/ haas mucous - denies sore throat RRR LS CTAB , occassional cough w/o distress Plan Viral swab obtained along w/ stat CXR Will fu with her once results are back Until then cont to use inhalers, supportive care. This note is constructed using voice recognition software. While every effort has been made to ensure accuracy in aircraft accessories mechanic, still errors may have been included Sometimes, these errors may affect the content or meaning of the given sentence . Total time spent caring for the patient today was 30 minutes. 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 Graves disease Thrombocytopenia Hyperlipidemia Fibromyalgia Herpes infection No pertinent past medical history Surgical History H/O LEEP History of cholecystectomy History of tubal ligation History of surgery History of section Family History Father Medical history unknown Mother Alcoholic Liver cancer Maternal Grandmother Diabetes Other Substance abuse Social History Housing: House Alcohol intake: former Patient Tobacco Use Status: Current someday Tobacco user Cigarettes Per Day: 1 Years Smoked: 20+ e-Cigarette/Vaping Use: Former Use Second Hand Smoke Exposure: Yes service: No Current occupational status: disabled Current occupational exposures/hazards: No Sexual orientation: Straight/Heterosexual Gender identity: Female Cognitive needs: No Hearing needs: No Vision needs: No Questionnaire Thrive Questionnaire Date Thrive assessed: 12/07/23 RONNIE-7 AMB Questionnaire RONNIE-7 Date RONNIE - 7 assessed: 12/07/23 Source: Developed by Drs. Sergio Goins, Mary Corrales, Ra Wayne and colleagues, with an educational huseyin from [employer]. Physical exam (Primary Care) Vital Signs: Last Vital Signs Temp 97.7 F 08/25/24 12:06 Pulse 84 08/25/24 12:06 Resp 16 08/25/24 12:06 BP 137/77 08/25/24 12:06 Pulse Ox 98 08/25/24 12:06 Oxygen Delivery Method Room Air 08/25/24 12:06 BMI result Body Mass Index 22.1 Tobacco/Smoking Status: Tobacco use Status Tobacco use date assessed 08/25/24 08/25/24 12:08 Patient Tobacco Use Status Current someday Tobacco 08/25/24 12:00 e-Cigarette/Vaping Use Former Use 08/25/24 12:00 Thrive Assessment: Date of Thrive Assessment Date Thrive assessed 12/07/23 08/25/24 12:00 Coding Level of Care Code Est Pt Level 4 (60794) Complex EM visit Add On G2211 Diagnoses Asthma, mild intermittent, poorly controlled J45.20 Tobacco dependence with current use F17.200 Flu-like symptoms R68.89 Assessment & Plan Assessment & Plan (1) Asthma, mild intermittent, poorly controlled: Code(s): J45.20 - Mild intermittent asthma, uncomplicated Category: Medical Plan: . (2) Tobacco dependence with current use: Code(s): F17.200 - Nicotine dependence, unspecified, uncomplicated Category: Medical Plan: . (3) Flu-like symptoms: Code(s): R68.89 - Other general symptoms and signs Category: Medical Plan: . Plan .. Orders: Orders XR chest 2V Today F17.200 - Nicotine dependence, unspecified, uncomplicated, J45.20 - Mild intermittent asthma, uncomplicated, R06.02 - Shortness of breath SARS-CoV2/FLU/RSV Today R09.89 - Other specified symptoms and signs involving the circulatory and respiratory systems
[2024-08-25 12:06] VITALS: BP 137/77; PULSE 84; RESP 16; TEMP 36.5; O2SAT 98; BMI 22.1
== END 2024-08-25 12:41 | disposition home or self-care (01) ==
LOC: HO.HMCWIW 11:55
PROVIDERS: PCP Nurse Practitioner Family; Visit Provider Nurse Practitioner Family
DX: J45.20 Mild intermittent asthma, uncomplicated (principal); F17.200 Nicotine dependence, unspecified, uncomplicated; R68.89 Other general symptoms and signs

== ENCOUNTER 2024-08-25 11:55 | Outpatient (REF) | payer MEDICARE, MEDICAID, SELFPAY ==
[2024-08-25 19:03] LABS: Influenza A PCR NEGATIVE (Negative); Influenza B PCR NEGATIVE (Negative); Resp Syncy Virus RNA Qual PCR NEGATIVE (Negative); SARS COV2 PCR INHOUSE NEGATIVE (Negative)
== END 2024-08-25 11:56 | disposition home or self-care (01) ==
LOC: HO.LNP 11:55
PROVIDERS: PCP Nurse Practitioner Family; Visit Provider Nurse Practitioner Family
DX: R09.89 Other specified symptoms and signs involving the circulatory and respiratory systems (principal); F17.200 Nicotine dependence, unspecified, uncomplicated; R06.02 Shortness of breath; J45.20 Mild intermittent asthma, uncomplicated
CPT/HCPCS: 0241U; 99212

== ENCOUNTER 2024-10-09 13:48 | Outpatient (REF) | payer MEDICARE, MEDICAID, SELFPAY ==
--- NOTE | ~2024-10-09 | XR_ITS ---
EXAMINATION: XR CHEST CLINICAL INFORMATION: R06.02 - Shortness of breath COMPARISON: CT chest 01/05/2020. TECHNIQUE: 2 views of the chest were obtained. FINDINGS: The lungs are well expanded and clear acute process. There is a right-sided aortic arch resulting in a right paratracheal soft tissue density. No gross bony abnormality seen. XR/XR chest 2V IMPRESSION: Unremarkable chest exam. No major change from previous CT chest 01/05/2020 Electronically signed by: Roosevelt Fontaine MD 10/10/2024 11:01 AM EST
== END 2024-10-09 13:49 | disposition home or self-care (01) ==
LOC: HO.XRAY 13:48
PROVIDERS: PCP Nurse Practitioner Family; Visit Provider Nurse Practitioner Family
DX: R06.02 Shortness of breath (principal); F17.200 Nicotine dependence, unspecified, uncomplicated; J45.20 Mild intermittent asthma, uncomplicated
CPT/HCPCS: 71046

== ENCOUNTER → 2024-10-09 13:59 | Outpatient (BNV) | payer MEDICARE, MEDICAID, SELFPAY | PROVIDERS: PCP Nurse Practitioner Family; Visit Provider Radiology Diagnostic Radiology | DX: J45.20 Mild intermittent asthma, uncomplicated (principal) | CPT/HCPCS: 71046 ==

== ENCOUNTER 2024-10-13 16:45 | Outpatient (AMB) | payer MEDICARE, MEDICAID, SELFPAY ==
--- NOTE | 2024-10-13 17:15 | A.OFFPC_ITS ---
Intake Visit Reasons: CXR RESULTS Allergies bupropion [From Wellbutrin] Allergy (Intermediate, Verified 10/13/24 17:57) mouth swelling Penicillins [PENICILLINS] Allergy (Intermediate, Verified 10/13/24 17:57) HIVES naproxen Allergy (Mild, Verified 10/13/24 17:57) upset stomach Medication List - Last Reconciled 10/13/24 by Kisha Moe, GALVANOMETER ASSEMBLER- acetaminophen ER (Tylenol 8 Hour) 650 mg PO Q8H PRN albuterol sulfate 2.5 mg (3 mL) inhalation Q4-6H PRN 3 months albuterol sulfate 90 mcg/actuation 2 puffs inhalation Q4-6H PRN 30 days atorvastatin 40 mg PO BEDTIME buspirone 7.5 mg PO BID cetirizine 10 mg PO DAILY fenofibrate 160 mg PO DAILY fluticasone propion-salmeterol 113-14 mcg/actuation (AirDuo RespiClick) 1 inh inhalation BID fluticasone propionate 50 mcg/actuation 2 sprays intranasal DAILY ibuprofen 600 mg PO TID lidocaine 4% 1 patch topical DAILY PRN nebulizers nebulizer device nicotine (polacrilex) 2 mg buccally PRN; nystatin 500,000 units (5 mL) PO DAILY 30 weeks tizanidine 4 mg PO BID PRN Tobacco use date assessed: 10/13/24 Dental Screening Dental Screen Date: 10/13/24 Did you have a dental visit in the last 12 months?: Yes Did you have a dental problem in the last 6 months where you did not have access to dental care?: No Was dental information given to patient?: Patient declined HPI HPI Comments History of Present Illness Details 48-year-old female with generalized anxi ety disorder, major depressive disorder, HPV, HSV, fibromyalgia, hyperlipidemia, current tobacco smoker, mild intermittent asthma, seasonal allergies, Graves disease, chronic low back pain Status post , cleft palate repair, tubal ligation, cholecystectomy, LEEP Telehealth visit today to discuss CXR results Below see details she cont to c/o choking sensation also cont with viral uri with cough s/p prednisone. cont w/ cough leg cramps bilat Plan refer to thoracics for finding on cxr mucinex for cough along w. inhalers magnesium oxide for leg cramps RTO 10/25/24 as scheduled This note is constructed using voice recognition software. While every effort has been made to ensure accuracy in mold filling operator, still errors may have been included Sometimes, these errors may affect the content or meaning of the given sentence . Total time spent caring for the patient today was 18 minutes. 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 Graves disease Thrombocytopenia Hyperlipidemia Fibromyalgia Herpes infection No pertinent past medical history Surgical History H/O LEEP History of cholecystectomy History of tubal ligation History of surgery History of section Family History Father Medical history unknown Mother Alcoholic Liver cancer Maternal Grandmother Diabetes Other Substance abuse Social History Housing: House Alcohol intake: former Patient Tobacco Use Status: Current someday Tobacco user Cigarettes Per Day: 1 Years Smoked: 20+ e-Cigarette/Vaping Use: Former Use Second Hand Smoke Exposure: Yes service: No Current occupational status: disabled Current occupational exposures/hazards: No Sexual orientation: Straight/Heterosexual Gender identity: Female Cognitive needs: No Hearing needs: No Vision needs: No Questionnaire Thrive Questionnaire Date Thrive assessed: 12/07/23 RONNIE-7 AMB Questionnaire RONNIE-7 Date RONNIE - 7 assessed: 12/07/23 Source: Developed by Drs. Sergio Goins, Mary Corrales, Ra Wayne and colleagues, with an educational huseyin from [employer]. Physical exam (Primary Care) Tobacco/Smoking Status: Tobacco use Status Tobacco use date assessed 10/13/24 10/13/24 18:03 Patient Tobacco Use Status Current someday Tobacco 10/13/24 17:15 e-Cigarette/Vaping Use Former Use 10/13/24 17:15 Thrive Assessment: Date of Thrive Assessment Date Thrive assessed 12/07/23 10/13/24 17:15 Telehealth Telehealth Telehealth Platform: Doxim[employer] Location of provider rendering services: practice address Location of patient: address on file Patient Identification confirmed using: Name, : Yes Telehealth method: voice only Patient verbally consented to treatment: Yes Patient verbally consented to billing insurance company: Yes Patient informed of any privacy concerns related to visit: Yes Minutes spent on Phone/Video with Pt.: 15 Results Reviewed Results Reviewed: [address] [address] XRay Report Signed Patient: Allyson Rivera MR#: [id number] : 1975 Acct:[id number] Age/Sex: 48 / F ADM Date: 10/09/24 Loc: [facility] Attending Dr: Kisha SANFORD Ordering Physician: Kisha Moe Date of Service: 10/09/24 Procedure(s): XR chest 2V Accession Number(s): [id number] cc: Kisha Moe~ EXAMINATION: XR CHEST CLINICAL INFORMATION: R06.02 - Shortness of breath COMPARISON: CT chest 01/05/2020. TECHNIQUE: 2 views of the chest were obtained. FINDINGS: The lungs are well expanded and clear acute process. There is a right-sided aortic arch resulting in a right paratracheal soft tissue density. No gross bony abnormality seen. XR/XR chest 2V IMPRESSION: Unremarkable chest exam. 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
== END 2024-10-13 18:02 | disposition home or self-care (01) ==
LOC: HO.HMCFM 16:45
PROVIDERS: PCP Nurse Practitioner Family; Visit Provider Nurse Practitioner Family
DX: Q25.40 Congenital malformation of aorta unspecified (principal); R09.89 Other specified symptoms and signs involving the circulatory and respiratory systems; J06.9 Acute upper respiratory infection, unspecified; R25.2 Cramp and spasm

== ENCOUNTER 2024-10-25 12:53 | Outpatient (AMB) | payer MEDICARE, MEDICAID, SELFPAY ==
--- NOTE | 2024-10-25 12:56 | A.OFFPC_ITS ---
Vital Signs 10/25/24 13:01 Height 5 ft 3 in Weight 122 lb 6 oz BMI 21.7 BP 112/66 Blood Pressure Location Lt brachial Position Sitting Respiration 12 Pulse 94 Pulse Source Pulse Oximeter Pulse Oximetry (%) 95 Oxygen Delivery Method Room Air Intake Visit Reasons: COPD Intake Note: Patient complaining of cough and patient also complain she has been sick for 2 months. 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 Allergies bupropion [From Wellbutrin] Allergy (Intermediate, Verified 10/25/24 13:39) mouth swelling Penicillins [PENICILLINS] Allergy (Intermediate, Verified 10/25/24 13:39) HIVES naproxen Allergy (Mild, Verified 10/25/24 13:39) upset stomach Medication List - Last Reconciled 10/25/24 by SHERWIN Sandoval- acetaminophen ER (Tylenol 8 Hour) 650 mg PO Q8H PRN albuterol sulfate 2.5 mg (3 mL) inhalation Q4-6H PRN 3 months albuterol sulfate 90 mcg/actuation 2 puffs inhalation Q4-6H PRN 30 days atorvastatin 40 mg PO BEDTIME buspirone 7.5 mg PO BID cetirizine 10 mg PO DAILY fenofibrate 160 mg PO DAILY fluticasone propion-salmeterol 113-14 mcg/actuation (AirDuo RespiClick) 1 inh inhalation BID fluticasone propionate 50 mcg/actuation 2 sprays intranasal DAILY ibuprofen 600 mg PO TID lidocaine 4% 1 patch topical DAILY PRN magnesium oxide 400 mg PO DAILY nicotine (polacrilex) 2 mg buccally PRN; nystatin 500,000 units (5 mL) PO DAILY 30 weeks tizanidine 4 mg PO BID PRN Tobacco use date assessed: 10/13/24 Dental Screening Dental Screen Date: 10/13/24 HPI HPI Comments History of Present Illness Details 48-year-old female with generalized anxi ety disorder, major depressive disorder, HPV, HSV, fibromyalgia, hyperlipidemia, current tobacco smoker, COPD, seasonal allergies, Graves disease, chronic low back pain Status post , cleft palate repair, tubal ligation, cholecystectomy, LEEP History of Present Illness The patient is a 48-year-old female presenting with a routine follow-up. She continues to experience a persistent raspy voice, which she attributes partly to her smoking habits, despite trying alternative methods such as holding smoke in her mouth without inhaling. The raspy voice has persisted for several weeks. She recalls a previous diagnosis of aortic arch anomaly causing esophageal pressure and was referred to a thoracic specialist, although an appointment has not yet been established. The office tried to call her but she has not returned the call. I provided the info to her. The patient reports sores in the back of her throat identified upon examination, potentially linked to her use of a nebulizer. she got a tattoo on l thigh had redness, its better but still a little red. denies fever. Social History - Smokes cigarettes; attempts alternativ e methods of smoking to reduce inhalation. Exam: Awake alert NAD, chronically ill appearing, older than stated age Sclera and conjunctiva clear bilat Nares clear, turbinates erythematous, no sinus tenderness with palpation bilat MMM, pharynx posterior erythematous with haas discoloration/mucous, she has 2 red nodules located where her uvula should be, her tongue is white coated and dry, she has a raised flesh colored bump inside her right lower lip (she is getting removed soon, she saw oral surg for this) RRR LS CTAB , occasional cough w/o distress L anterior thigh is a tattto with very mild non warm erythema around one of the villalpando; no streaking, no pain. Discussion Notes I discussed with the patient the importance of consulting with a thoracic specialist for the previously identified aortic arch anomaly to address potential esophageal compression. We discussed potential causes of the raspy voice, including smoking and nebulizer use, and the significance of further evaluation by an ear, nose, and throat specialist. Does not look like strep; she has been swabbed for covid, flu and rsv several times - negative. Given her smoking hx there is always a concern for malignancy. she was advised of the importance of follow through on ENT referral along with her other referrals. The risks and benefits of continued COPD management and the necessity of smoking cessation were outlined. Follow-up for the scheduled hysteroscopy with the TENANT RELATIONS COORDINATOR provider was confirmed. Monitor tattoo of L thigh, if redness worsens or you develop signs of infection, please seek care immediatley. Otherwise cont to apply lotion. We reviewed the referral and medication refill process, ensuring all contact information was updated, and emphasized the importance of close monitoring of symptoms. Plan - Discussed referral to ear, nose, and t hroat specialist for evaluation of throat sores and raspy voice. - Referral to thoracic specialist confir med, with contact details provided for appointment follow-up. - Encouraged to reduce smoking for overa ll health benefit and to alleviate throat symptoms. - Continuation of current COPD managemen t with AirDuo inhaler. - Follow up with TENANT RELATIONS COORDINATOR provider, Dr. Paz , for hysteroscopy. - Refill for Tylenol prescribed for neck pain management. - Monitor tattoo for infection Patient was informed and verbally consented to the use of an ambient scribe for clinic note documentation during this visit. Patient Instructions - Contact thoracic specialist to schedul e an evaluation. - Follow up with a TENANT RELATIONS COORDINATOR provider for the procedural appointment as scheduled. - Use Tylenol as needed for neck pain re lief. - Reduce or cease smoking for improved r espiratory function and to potentially mitigate throat irritation. - Monitor and report any changes in the throat condition or voice changes to healthcare providers. - Follow up with ENT specialist for thro at evaluation as soon as the appointment is scheduled. - Continue regular use of COPD medicatio ns as prescribed. - Monitor tattoo for infection This note is constructed using voice recognition software. While every effort has been made to ensure accuracy in premium representative, still errors may have been included Sometimes, these errors may affect the content or meaning of the given sentence . Total time spent caring for the patient today was 45 minutes. 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 Graves disease Thrombocytopenia Hyperlipidemia Fibromyalgia Herpes infection No pertinent past medical history Surgical History H/O LEEP History of cholecystectomy History of tubal ligation History of surgery History of section Family History Father Medical history unknown Mother Alcoholic Liver cancer Maternal Grandmother Diabetes Other Substance abuse Social History Housing: House Alcohol intake: former Patient Tobacco Use Status: Current someday Tobacco user Cigarettes Per Day: 1 Years Smoked: 20+ e-Cigarette/Vaping Use: Former Use Second Hand Smoke Exposure: Yes service: No Current occupational status: disabled Current occupational exposures/hazards: No Sexual orientation: Straight/Heterosexual Gender identity: Female Cognitive needs: No Hearing needs: No Vision needs: No Questionnaire PHQ-9 Over the last 2 weeks, how often have you been bothered by any of the following problems? 1. Little interest or pleasure in doing things: not at all 2. Feeling down, depressed, or hopeless: not at all 3. Trouble falling or staying asleep, or sleeping too much: more than half the days 4. Feeling tired or having little energy: more than half the days 5. Poor appetite or overeating: not at all 6. Feeling bad about yourself - or that you are a failure or have let yourself or your family down: not at all 7. Trouble concentrating on things, such as reading the newspaper or watching television: not at all 8. Moving or speaking so slowly that other people could have noticed. Or the opposite - being so fidgety or restless that you have been moving around a lot more than usual: not at all 9. Thoughts that you would be better off or of hurting yourself in some way: not at all Total score: 4 Depression Screening Interpretation: Positive Depression Screening Follow-up: Existing condition Depression Screening Done: Yes 26040 - PHQ-9 Billing: Yes Source: Developed by Drs. Sergio Goins, Mary Corrales, Ra Wayne and colleagues, with an educational huseyin from [employer]. Thrive Questionnaire Date Thrive assessed: 10/25/24 I am a: Patient What is your living situation today?: I have a steady place to live Within the past 12 months, did the food you bought not last and you didn't have the money to get more?: Never true Within the past 12 months, did you worry whether your food would run out before you got money to buy more?: Never true Do you have trouble paying for medicines?: No Do you have trouble getting transportation to medical appointments?: No Do you have trouble paying your heating and electricity bill?: No Do you have trouble taking care of your child, family member or friend?: No Do you have trouble with day-to-day activities such as bathing, preparing meals, shopping, managing finances, etc.?: No Are you currently unemployed and looking for a job?: No Are you interested in more education?: No Please select the resources that you would like help with: None Currently or been in a relationship where the following occur: No concerns reported THRIVE Score: 0 AUDIT C Alcohol Use Questionnaire (AUDIT-C) 1. How often do you have a drink containing alcohol?: Never 3. How often do you have six or more drinks on one occasion?: Never Total Score: 0 Score Reviewed/Action Taken: Yes RONNIE-7 AMB Questionnaire RONNIE-7 Date RONNIE - 7 assessed: 10/25/24 Feeling nervous, anxious, or on edge: 0 = Not at all Not being able to stop or control worryin = Not at all Worrying too much about different things: 0 = Not at all Trouble relaxin = Not at all Being so restless that it is hard to sit still: 0 = Not at all Becoming easily annoyed or irritable: 0 = Not at all Feeling afraid as if something awful might happen: 0 = Not at all Total RONNIE-7 score (0-4 normal; 5-9 mild; 10-14 moderate; 15-21 severe): 0 Source: Developed by Drs. Sergio Goins, Mary Corrales, Ra Wayne and colleagues, with an educational huseyin from [employer]. RONNIE-7 Assessment Billing RONNIE-7 Assessment Tool: RONNIE-7 Assessment 44876 Physical exam (Primary Care) Vital Signs: Last Vital Signs Pulse 94 10/25/24 13:01 Resp 12 10/25/24 13:01 BP 112/66 10/25/24 13:01 Pulse Ox 95 10/25/24 13:01 Oxygen Delivery Method Room Air 10/25/24 13:01 BMI result Body Mass Index 21.7 Tobacco/Smoking Status: Tobacco use Status Tobacco use date assessed 10/13/24 10/25/24 13:03 Patient Tobacco Use Status Current someday Tobacco 10/25/24 13:03 e-Cigarette/Vaping Use Former Use 10/25/24 13:03 Are you ready to quit: No Tobacco cessation counseling provided: Yes Items discussed: Nicotine replacement, QuitWorks and Other Relapse Prevention: discussed the importance of a supportive environment, discussed extending NRT, discussed negative mood or depression after quitting, weight gain after smoking is common and discussed dietary, exercise and/or lifestyle changes Number of minutes spent counselin CPT code: 72926 - 4-10 Minutes PHQ-9: PHQ-9 Score PHQ-9: Total score 4 10/25/24 13:39 Depression Screening Interpretation: Positive Depression Screening Follow-up: Existing condition Thrive Assessment: Date of Thrive Assessment Date Thrive assessed 10/25/24 10/25/24 13:03 Currently or been in a relationship where the following occur: No concerns reported Coding Level of Care Code Est Pt Level 5 (28213) Complex EM visit Add On G2211 Diagnoses Hoarseness or changing voice R49.9 Ulcer of pharynx J39.2 Choking sensation R09.89 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 Mild episode of recurrent major depressive disorder F33.0 Major depression episode severity: mild Tobacco dependence with current use F17.200 Simple chronic bronchitis J41.0 COPD type: chronic bronchitis Chronic bronchitis type: simple Tattoo of skin L81.8 Additional Codes RONNIE-7 Assessment Billing - RONNIE-7 Assessment Tool: RONNIE-7 Assessment 85420 ([id number]) PHQ-9 - 69840 - PHQ-9 Billing: Yes ([id number]) Vital Signs *Quality* - CPT code: 25057 - 4-10 Minutes ([id number]) Assessment & Plan Assessment & Plan (1) Hoarseness or changing voice: Code(s): R49.9 - Unspecified voice and resonance disorder Category: Medical (2) Ulcer of pharynx: Code(s): J39.2 - Other diseases of pharynx Category: Medical (3) Choking sensation: Code(s): R09.89 - Other specified symptoms and signs involving the circulatory and respiratory systems Category: Medical (4) 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 right paratracheal soft tissue density Code(s): Q25.40 - Congenital malformation of aorta unspecified Category: Medical (5) MDD (major depressive disorder), recurrent episode: Code(s): F33.9 - Major depressive disorder, recurrent, unspecified Category: Medical Qualifiers: Major depression episode severity: mild Qualified Code(s): F33.0 - Major depressive disorder, recurrent, mild (6) Tobacco dependence with current use: Code(s): F17.200 - Nicotine dependence, unspecified, uncomplicated Category: Medical (7) COPD (chronic obstructive pulmonary disease): Code(s): J44.9 - Chronic obstructive pulmonary disease, unspecified Category: Medical Qualifiers: COPD type: chronic bronchitis Chronic bronchitis type: simple Qualified Code(s): J41.0 - Simple chronic bronchitis (8) Tattoo of skin: Code(s): L81.8 - Other specified disorders of pigmentation Category: Medical Plan . Orders: Referrals Ear/Nose/Throat Referral F17.200 - Nicotine dependence, unspecified, uncomplicated, J39.2 - Other diseases of pharynx, R49.9 - Unspecified voice and resonance disorder Medications: Refilled acetaminophen ER (Tylenol 8 Hour) 650 mg PO Q8H PRN 30 tabs 3RF pain Discontinued guaifenesin ER (Mucinex) Discontinued Reason: Patient Completed Course 600 mg PO Q12H 10 days PRN 20 tabs 0RF congestion Patient Instructions: [phone] [facility] [address] [place] [address] [place] [address]
[2024-10-25 13:01] VITALS: BP 112/66; PULSE 94; RESP 12; O2SAT 95; BMI 21.7
== END 2024-10-25 13:56 | disposition home or self-care (01) ==
PROVIDERS: PCP Nurse Practitioner Family; Visit Provider Nurse Practitioner Family
DX: R49.9 Unspecified voice and resonance disorder (principal); J39.2 Other diseases of pharynx; R09.89 Other specified symptoms and signs involving the circulatory and respiratory systems; Q25.40 Congenital malformation of aorta unspecified; F33.0 Major depressive disorder, recurrent, mild; F17.200 Nicotine dependence, unspecified, uncomplicated; J41.0 Simple chronic bronchitis; L81.8 Other specified disorders of pigmentation

== ENCOUNTER → 2024-10-25 12:53 | Outpatient (BNVA) | payer MEDICARE, MEDICAID, SELFPAY | PROVIDERS: PCP Nurse Practitioner Family; Visit Provider Nurse Practitioner Family | DX: J44.9 Chronic obstructive pulmonary disease, unspecified (principal); F41.1 Generalized anxiety disorder; M79.7 Fibromyalgia; E78.5 Hyperlipidemia, unspecified; E05.00 Thyrotoxicosis with diffuse goiter without thyrotoxic crisis or storm; M54.50 Low back pain, unspecified; R49.9 Unspecified voice and resonance disorder; J39.2 Other diseases of pharynx; R09.89 Other specified symptoms and signs involving the circulatory and respiratory systems; Q25.40 Congenital malformation of aorta unspecified; F33.0 Major depressive disorder, recurrent, mild; J41.0 Simple chronic bronchitis; L81.8 Other specified disorders of pigmentation; F17.210 Nicotine dependence, cigarettes, uncomplicated | CPT/HCPCS: 96127; 99212 ==

== ENCOUNTER 2025-01-25 12:33 | Outpatient (AMB) | payer MEDICARE, MEDICAID, SELFPAY ==
--- NOTE | 2025-01-25 12:31 | MHC.PC.OV ---
Intake Visit Reasons: routine fu Intake Note: telehealth follow up for copd Program Counselor Required: No Allergies bupropion [From Wellbutrin] Allergy (Intermediate, Verified 01/25/25 13:18) mouth swelling Penicillins [PENICILLINS] Allergy (Intermediate, Verified 01/25/25 13:18) HIVES naproxen Allergy (Mild, Verified 01/25/25 13:18) upset stomach Medication List - Last Reconciled 01/25/25 by Kisha Moe, CHAPTER RELATIONS ADMINISTRATOR- acetaminophen ER (Tylenol 8 Hour) 650 mg PO Q8H PRN albuterol sulfate 2.5 mg (3 mL) inhalation Q4-6H PRN 3 months albuterol sulfate 90 mcg/actuation 2 puffs inhalation Q4-6H PRN 30 days atorvastatin 40 mg PO BEDTIME buspirone 7.5 mg PO BID cetirizine 10 mg PO DAILY fenofibrate 160 mg PO DAILY fluticasone propion-salmeterol 113-14 mcg/actuation (AirDuo RespiClick) 1 inh inhalation BID fluticasone propionate 50 mcg/actuation 2 sprays intranasal DAILY ibuprofen 600 mg PO TID lidocaine 4% 1 patch topical DAILY PRN magnesium oxide 400 mg PO DAILY nicotine (polacrilex) 2 mg buccally PRN; nystatin 500,000 units (5 mL) PO DAILY 30 weeks tizanidine 4 mg PO BID PRN Tobacco use date assessed: 01/25/25 Dental Screening Dental Screen Date: 10/13/24 HPI HPI Comments History of Present Illness Details 49-year-old female with generalized anxiety disorder, major depressive disorder, HPV, HSV, fibromyalgia, hyperlipidemia, current tobacco smoker, COPD, seasonal allergies, Graves disease, chronic low back pain Status post , cleft palate repair, tubal ligation, cholecystectomy, LEEP Telehealth visit today for COPD Sx have been uncontrolled all winter Reports + PNA dx at Urgent Care I dont have these records She was treated Given Albuterol Nebs which help some Using Airduo Cont to smoke Denies fever, chills, hemoptysis C/o chronic pain stopped taking zanaflex as it did not work was managed by [facility] pain mgmt but hasnt ffd up she doesnt want needles referred to chiro and working on getting appt Has allergies Using zyrtec Flonase bothers her nose but uses some times She did not attend her thoracics appt or ENT did have oral lesion removed, tells me extra skin i do not have these records HLD taking statin, doesn't do anything . Last set of labs 2023. Declined repeat. Plan Increase AirDuo to 232-14mcg 1 puff BID Cont SKIP Neb and HFA Smoking cessation edu FU with Chiro; schedule appt w ENT and Thoracics Offered and declined labs Cont all other meds States she is coming to office tomorrow w/ her dtr and would like me to see her at that time I have notified my office to arrange for this Unfortunately, the call cut short. I can f/u with her tomorrow This note is constructed using voice recognition software. While every effort has been made to ensure accuracy in superintendent custodian janitor, still errors may have been included Sometimes, these errors may affect the content or meaning of the given sentence . Total time spent caring for the patient today was 32 minutes. 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 Graves disease Thrombocytopenia Hyperlipidemia Fibromyalgia Herpes infection No pertinent past medical history Surgical History H/O LEEP History of cholecystectomy History of tubal ligation History of surgery History of section Family History Father Medical history unknown Mother Alcoholic Liver cancer Maternal Grandmother Diabetes Other Substance abuse Social History Housing: House Alcohol intake: former Patient Tobacco Use Status: Current someday Tobacco user Cigarettes Per Day: 1 Years Smoked: 20+ e-Cigarette/Vaping Use: Former Use Second Hand Smoke Exposure: Yes service: No Current occupational status: disabled Current occupational exposures/hazards: No Sexual orientation: Straight/Heterosexual Gender identity: Female Cognitive needs: No Hearing needs: No Vision needs: No Questionnaire PHQ-9 Over the last 2 weeks, how often have you been bothered by any of the following problems? 1. Little interest or pleasure in doing things: not at all 2. Feeling down, depressed, or hopeless: not at all 3. Trouble falling or staying asleep, or sleeping too much: not at all 4. Feeling tired or having little energy: not at all 5. Poor appetite or overeating: not at all 6. Feeling bad about yourself - or that you are a failure or have let yourself or your family down: not at all 7. Trouble concentrating on things, such as reading the newspaper or watching television: not at all 8. Moving or speaking so slowly that other people could have noticed. Or the opposite - being so fidgety or restless that you have been moving around a lot more than usual: not at all 9. Thoughts that you would be better off or of hurting yourself in some way: not at all Total score: 0 Depression Screening Interpretation: Negative Depression Screening Done: Yes 65574 - PHQ-9 Billing: Yes Source: Developed by Drs. Sergio Goins, Mary Corrales, Ra Wayne and colleagues, with an educational huseyin from [employer]. Thrive Questionnaire Date Thrive assessed: 10/25/24 I am a: Patient What is your living situation today?: I have a steady place to live Within the past 12 months, did the food you bought not last and you didn't have the money to get more?: Never true Within the past 12 months, did you worry whether your food would run out before you got money to buy more?: Never true Do you have trouble paying for medicines?: No Do you have trouble getting transportation to medical appointments?: No Do you have trouble taking care of your child, family member or friend?: No Do you have trouble with day-to-day activities such as bathing, preparing meals, shopping, managing finances, etc.?: No Are you currently unemployed and looking for a job?: No Are you interested in more education?: No Please select the resources that you would like help with: None Currently or been in a relationship where the following occur: No concerns reported THRIVE Score: 0 AUDIT C Alcohol Use Questionnaire (AUDIT-C) 1. How often do you have a drink containing alcohol?: Never 2. How many drinks containing alcohol do you have on a typical day when you are drinking?: 1 or 2 3. How often do you have six or more drinks on one occasion?: Never Total Score: 0 Score Reviewed/Action Taken: Yes RONNIE-7 AMB Questionnaire RONNIE-7 Date RONNIE - 7 assessed: 01/25/25 Feeling nervous, anxious, or on edge: 0 = Not at all Not being able to stop or control worryin = Not at all Worrying too much about different things: 0 = Not at all Trouble relaxin = Not at all Being so restless that it is hard to sit still: 0 = Not at all Becoming easily annoyed or irritable: 0 = Not at all Feeling afraid as if something awful might happen: 0 = Not at all Total RONNIE-7 score (0-4 normal; 5-9 mild; 10-14 moderate; 15-21 severe): 0 Source: Developed by Drs. Sergio Goins, Mary Corrales, Ra Wayne and colleagues, with an educational huseyin from [employer]. RONNIE-7 Assessment Billing RONNIE-7 Assessment Tool: RONNIE-7 Assessment 64938 Physical exam (Primary Care) Tobacco/Smoking Status: Tobacco use Status Tobacco use date assessed 01/25/25 01/25/25 12:32 Patient Tobacco Use Status Current someday Tobacco 01/25/25 12:32 e-Cigarette/Vaping Use Former Use 01/25/25 12:32 Are you ready to quit: No Tobacco cessation counseling provided: Yes Items discussed: Nicotine replacement, QuitWorks and Other Relapse Prevention: discussed the importance of a supportive environment, discussed extending NRT, discussed negative mood or depression after quitting, weight gain after smoking is common and discussed dietary, exercise and/or lifestyle changes Number of minutes spent counselin CPT code: 14058 - 4-10 Minutes PHQ-9: PHQ-9 Score PHQ-9: Total score 0 01/25/25 13:22 Depression Screening Interpretation: Negative Thrive Assessment: Date of Thrive Assessment Date Thrive assessed 10/25/24 01/25/25 12:32 Currently or been in a relationship where the following occur: No concerns reported Telehealth Telehealth Telehealth Platform: Telephone Location of provider rendering services: practice address Location of patient: address on file Patient Identification confirmed using: Name, : Yes Telehealth method: voice only Patient verbally consented to treatment: Yes Patient verbally consented to billing insurance company: Yes Patient informed of any privacy concerns related to visit: Yes Minutes spent on Phone/Video with Pt.: 15 Coding Level of Care Code Tele Est Pt Level 4 (77548) Complex EM visit Add On G2211 Diagnoses Simple chronic bronchitis J41.0 COPD type: chronic bronchitis Chronic bronchitis type: simple Mixed hyperlipidemia E78.2 Hyperlipidemia type: mixed hyperlipidemia Mild episode of recurrent major depressive disorder F33.0 Major depression episode severity: mild Tobacco dependence with current use F17.200 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 Chronic bilateral low back pain without sciatica M54.50; G89.29 Back pain location: low back pain Back pain laterality: bilateral Sciatica presence: without sciatica Additional Codes RONNIE-7 Assessment Billing - RONNIE-7 Assessment Tool: RONNIE-7 Assessment 09226 ([id number]) PHQ-9 - 43292 - PHQ-9 Billing: Yes ([id number]) Vital Signs *Quality* - CPT code: 61899 - 4-10 Minutes ([id number]) Assessment & Plan Assessment & Plan (1) COPD (chronic obstructive pulmonary disease): Code(s): J44.9 - Chronic obstructive pulmonary disease, unspecified Category: Medical Qualifiers: COPD type: chronic bronchitis Chronic bronchitis type: simple Qualified Code(s): J41.0 - Simple chronic bronchitis (2) Hyperlipidemia: Code(s): E78.5 - Hyperlipidemia, unspecified Category: Medical Qualifiers: Hyperlipidemia type: mixed hyperlipidemia Qualified Code(s): E78.2 - Mixed hyperlipidemia (3) MDD (major depressive disorder), recurrent episode: Code(s): F33.9 - Major depressive disorder, recurrent, unspecified Category: Medical Qualifiers: Major depression episode severity: mild Qualified Code(s): F33.0 - Major depressive disorder, recurrent, mild (4) Tobacco dependence with current use: Code(s): F17.200 - Nicotine dependence, unspecified, uncomplicated Category: Medical (5) 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 Medications: New fluticasone propion-salmeterol 232-14 mcg/actuation (AirDuo RespiClick) 1 inh inhalation BID 1 ea 3RF Refilled cetirizine 10 mg PO DAILY 90 tabs 1RF Discontinued fluticasone propion-salmeterol 113-14 mcg/actuation (AirDuo RespiClick) Discontinued Reason: Doctor's Order 1 inh inhalation BID 1 ea 2RF tizanidine Discontinued Reason: Patient no longer taking 4 mg PO BID PRN 60 tabs 1RF for muscle spasm M62.838 - Other muscle spasm, M79.7 - Fibromyalgia
--- OUTSIDE RECORDS SUMMARY | 2025-01-25 15:21 | XMS_ITS | Clinical Summary ---
Author Organization Formerly [facility] Address [address] [place] [address] Care Team Providers Care Geospatial Applications Developer Name Role Phone Unavailable Primary Care Provider Unavailabl e Encounters Date Type Department Care Team Description 11/06/2024 Transcribe Orders [facility] PRIMARY CARE SCAN Kisha Moe APRN Unspecified voice and resonance disorder (Primary Dx) from Last 3 Months Social History Tobacco Use Types Packs/Day Years Used Date Smoking Tobacco: Never Assessed Comments Unknown Sex and Gender Information Value Date Recorded Sex Assigned at Not on file Legal Sex Female 5:25 PM EST Gender Identity Not on file Sexual Orientation Not on file Plan of Treatment Health Maintenance Due Date Last Done Comments Hepatitis C Virus Screening 1974 HIV Screening 1987 DTaP/Tdap/Td Vaccines (1 - Tdap) 1993 Hepatitis B Vaccines (1 of 3 - 19+ 3-dose series) 10/12 Pap Smear (Ages 21-65) 1995 Mammogram 2014 Colonoscopy 2019 Influenza Vaccine 05/11/2024 COVID-19 Vaccine (1 - 2023-25 season) 2024 Pneumococcal Vaccines 50+ (1 of 1 - PCV) 2024 Zoster (Shingles) Vaccine (1 of 2) 2024 Insurance MEDICARE PART A & B
--- OUTSIDE RECORDS SUMMARY | 2025-01-25 15:21 | XMS_ITS ---
Author Name [facility] Organization Unknown Problems Problem Status Onset Date Problem Type Date of Resoluti on Source Unspecified voice and resonance disorder active [facility]
== END 2025-01-25 17:05 | disposition home or self-care (01) ==
LOC: HO.HMCFM 12:33
PROVIDERS: PCP Nurse Practitioner Family; Visit Provider Nurse Practitioner Family
DX: J41.0 Simple chronic bronchitis (principal); F33.0 Major depressive disorder, recurrent, mild; E78.2 Mixed hyperlipidemia; F17.200 Nicotine dependence, unspecified, uncomplicated; Q25.40 Congenital malformation of aorta unspecified; M54.50 Low back pain, unspecified; G89.29 Other chronic pain

== ENCOUNTER → 2025-01-25 12:33 | Outpatient (BNVA) | payer MEDICARE, MEDICAID, SELFPAY | PROVIDERS: PCP Nurse Practitioner Family; Visit Provider Nurse Practitioner Family | DX: J41.0 Simple chronic bronchitis (principal); E78.2 Mixed hyperlipidemia; F33.0 Major depressive disorder, recurrent, mild; M54.50 Low back pain, unspecified; G89.29 Other chronic pain; F17.200 Nicotine dependence, unspecified, uncomplicated; Q25.40 Congenital malformation of aorta unspecified | CPT/HCPCS: 96127 ==

== ENCOUNTER 2025-01-26 13:14 | Outpatient (AMB) | payer MEDICARE, MEDICAID, SELFPAY ==
--- NOTE | 2025-01-26 13:18 | A.OFFPC_ITS ---
Vital Signs 01/26/25 13:26 Height 5 ft 3 in Weight 120 lb 2 oz BMI 21.3 BP 114/64 Blood Pressure Location Rt brachial Position Sitting Respiration 14 Pulse 81 Pulse Source Pulse Oximeter Temp 98.0 F Temp Source Temporal Artery Scan Pulse Oximetry (%) 97 Oxygen Delivery Method Room Air Intake Visit Reasons: follow up on meds Intake Note: Patrice presents for a follow up to her meds. Would like to discuss her back pain. Allergies bupropion [From Wellbutrin] Allergy (Intermediate, Verified 01/26/25 13:21) mouth swelling Penicillins [PENICILLINS] Allergy (Intermediate, Verified 01/26/25 13:21) HIVES naproxen Allergy (Mild, Verified 01/26/25 13:21) upset stomach Medication List - Last Reconciled 01/26/25 by SHERWIN Sandoval- acetaminophen ER (Tylenol 8 Hour) 650 mg PO Q8H PRN albuterol sulfate 2.5 mg (3 mL) inhalation Q4-6H PRN 3 months albuterol sulfate 90 mcg/actuation 2 puffs inhalation Q4-6H PRN 30 days ammonium lactate 12% 1 appl topical DAILY atorvastatin 40 mg PO BEDTIME buspirone 7.5 mg PO BID cetirizine 10 mg PO DAILY fenofibrate 160 mg PO DAILY fluticasone propion-salmeterol 232-14 mcg/actuation (AirDuo RespiClick) 1 inh inhalation BID fluticasone propionate 50 mcg/actuation 2 sprays intranasal DAILY ibuprofen 600 mg PO TID lidocaine-prilocaine 2.5-2.5 % 1 g topical DAILY magnesium oxide 400 mg PO DAILY nicotine (polacrilex) 2 mg buccally PRN; Tobacco use date assessed: 01/26/25 Dental Screening Dental Screen Date: 01/26/25 Did you have a dental visit in the last 12 months?: Yes Did you have a dental problem in the last 6 months where you did not have access to dental care?: No Was dental information given to patient?: Patient has dentist HPI HPI Comments History of Present Illness Details 49-year-old female with generalized anxi ety disorder, major depressive disorder, HPV, HSV, fibromyalgia, hyperlipidemia, current tobacco smoker, COPD, seasonal allergies, Graves disease, chronic low back pain Status post , cleft palate repair, tubal ligation, cholecystectomy, LEEP Here today for a f/u after yesterdays telehealth visit She did not get Airduo yet She was referred to thoracics; referrals sent me message they cant get a hold of her; this was reviewed today. I asked she print this info and schedule appt. Same for Chiro. she was referred there for back pain by pain mgmt. but did not go yet. wants soma. advised this is not something i will rx. has dry cracked skin bottom of right foot; hydrating w/o improvement Has anxiety; wants meds; states she never picked up the buspirone that i sent in 06/2024. Environmental allergies; does not think the zyrtec is working Exam: Awake alert NAD, chronically ill appearing, older than stated age Sclera and conjunctiva clear bilat TM intact, congested bilat worse on R. Nares clear, turbinates erythematous, no sinus tenderness with palpation bilat MMM, pharynx posterior erythematous with haas discoloration/mucous, she has 2 red nodules located where her uvula should be RRR LS CTAB Plan Start lac hydrin to R foot FU with Thoracics and Chiro Stop zyrtec; start fexofenadine 180 QD Start buspar twice per day Smoking cessation Get AirDuo RTO end of April CPE sooner PRN Total time spent caring for the patient today was 45 minutes. This includes time spent before the visit reviewing the chart, time spent during the visit, and time spent after the visit on documentation, reviewing laboratory results, diagnostic imaging, medications, performing a medically necessary evaluation, counseling on diagnoses, care coordination, ordering appropriate tests, ordering appropriate medications, review of tests performed by other providers, reporting test results with the patient, communication with other healthcare providers. 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 Graves disease Thrombocytopenia Hyperlipidemia Fibromyalgia Herpes infection No pertinent past medical history Surgical History H/O LEEP History of cholecystectomy History of tubal ligation History of surgery History of section Family History Father Medical history unknown Mother Alcoholic Liver cancer Maternal Grandmother Diabetes Other Substance abuse Social History (Updated 01/26/25 @ 13:23 by Bree Abarca MA) Housing: House Alcohol intake: former Patient Tobacco Use Status: Current someday Tobacco user Cigarettes Per Day: 1 Years Smoked: 20+ e-Cigarette/Vaping Use: Former Use Second Hand Smoke Exposure: Yes service: No Current occupational status: disabled Current occupational exposures/hazards: No Sexual orientation: Straight/Heterosexual Gender identity: Female Cognitive needs: No Hearing needs: No Vision needs: No Questionnaire PHQ-9 Over the last 2 weeks, how often have you been bothered by any of the following problems? 1. Little interest or pleasure in doing things: not at all 2. Feeling down, depressed, or hopeless: not at all 3. Trouble falling or staying asleep, or sleeping too much: nearly every day 4. Feeling tired or having little energy: several days 5. Poor appetite or overeating: not at all 6. Feeling bad about yourself - or that you are a failure or have let yourself or your family down: not at all 7. Trouble concentrating on things, such as reading the newspaper or watching television: not at all 8. Moving or speaking so slowly that other people could have noticed. Or the opposite - being so fidgety or restless that you have been moving around a lot more than usual: not at all 9. Thoughts that you would be better off or of hurting yourself in some way: not at all Total score: 4 Depression Screening Interpretation: Negative Depression Screening Done: Yes 00067 - PHQ-9 Billing: Patient declined-do not bill Source: Developed by Drs. Sergio Goins, Mary Corrales, Ra Wayne and colleagues, with an educational huseyin from [employer]. Thrive Questionnaire Date Thrive assessed: 01/26/25 I am a: Patient What is your living situation today?: I have a steady place to live Within the past 12 months, did the food you bought not last and you didn't have the money to get more?: Never true Within the past 12 months, did you worry whether your food would run out before you got money to buy more?: Never true Do you have trouble paying for medicines?: No Do you have trouble getting transportation to medical appointments?: No Do you have trouble paying your heating and electricity bill?: No Do you have trouble taking care of your child, family member or friend?: No Do you have trouble with day-to-day activities such as bathing, preparing meals, shopping, managing finances, etc.?: No Are you currently unemployed and looking for a job?: No Are you interested in more education?: I choose not to answer this question Please select the resources that you would like help with: None Currently or been in a relationship where the following occur: No concerns r eported THRIVE Score: 0 AUDIT C Alcohol Use Questionnaire (AUDIT-C) 1. How often do you have a drink containing alcohol?: Never Total Score: 0 RONNIE-7 AMB Questionnaire ORNNIE-7 Date RONNIE - 7 assessed: 01/26/25 Feeling nervous, anxious, or on edge: 1 = Several days Not being able to stop or control worryin = Not at all Worrying too much about different things: 0 = Not at all Trouble relaxin = Several days Being so restless that it is hard to sit still: 0 = Not at all Becoming easily annoyed or irritable: 0 = Not at all Feeling afraid as if something awful might happen: 0 = Not at all Total RONNIE-7 score (0-4 normal; 5-9 mild; 10-14 moderate; 15-21 severe): 2 Source: Developed by Drs. Sergio Goins, Mary Corrales, Ra Wayne and colleagues, with an educational huseyin from [employer]. RONNIE-7 Assessment Billing RONNIE-7 Assessment Tool: RONNIE-7 Assessment 45504 ACT Questionnaire In the past 4 weeks, how much of the time did your asthma keep you from getting as much done at work, school or at home?: None of the time Score: 5 Physical exam (Primary Care) Vital Signs: Last Vital Signs Temp 98.0 F 01/26/25 13:26 Pulse 81 01/26/25 13:26 Resp 14 01/26/25 13:26 BP 114/64 01/26/25 13:26 Pulse Ox 97 01/26/25 13:26 Oxygen Delivery Method Room Air 01/26/25 13:26 BMI result Body Mass Index 21.3 Tobacco/Smoking Status: Tobacco use Status Tobacco use date assessed 01/26/25 01/26/25 13:23 Patient Tobacco Use Status Current someday Tobacco 01/26/25 13:23 e-Cigarette/Vaping Use Former Use 01/26/25 13:23 PHQ-9: PHQ-9 Score PHQ-9: Total score 4 01/26/25 13:53 Depression Screening Interpretation: Negative Thrive Assessment: Date of Thrive Assessment Date Thrive assessed 01/26/25 01/26/25 13:29 Currently or been in a relationship where the following occur: No concerns reported Coding Level of Care Code Est Pt Level 5 (99775) Complex EM visit Add On G2211 Diagnoses 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 Chronic bilateral low back pain without sciatica M54.50; G89.29 Back pain location: low back pain Back pain laterality: bilateral Sciatica presence: without sciatica Simple chronic bronchitis J41.0 COPD type: chronic bronchitis Chronic bronchitis type: simple RONNIE (generalized anxiety disorder) F41.1 Tobacco dependence with current use F17.200 Environmental and seasonal allergies J30.89 Dry skin dermatitis L85.3 Additional Codes RONNIE-7 Assessment Billing - RONNIE-7 Assessment Tool: RONNIE-7 Assessment 78811 ([id number]) Assessment & Plan Assessment & Plan (1) 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 right paratracheal soft tissue density Code(s): Q25.40 - Congenital malformation of aorta unspecified Category: Medical (2) Chronic back pain: Code(s): M54.9 - Dorsalgia, unspecified; G89.29 - Other chronic pain Category: Medical Qualifiers: Back pain location: low back pain Back pain laterality: bilateral Sciatica presence: without sciatica Qualified Code(s): M54.50 - Low back pain, unspecified; G89.29 - Other chronic pain (3) COPD (chronic obstructive pulmonary disease): Code(s): J44.9 - Chronic obstructive pulmonary disease, unspecified Category: Medical Qualifiers: COPD type: chronic bronchitis Chronic bronchitis type: simple Qualified Code(s): J41.0 - Simple chronic bronchitis (4) RONNIE (generalized anxiety disorder): Code(s): F41.1 - Generalized anxiety disorder Category: Medical (5) Tobacco dependence with current use: Code(s): F17.200 - Nicotine dependence, unspecified, uncomplicated Category: Medical (6) Environmental and seasonal allergies: Code(s): J30.89 - Other allergic rhinitis Category: Medical (7) Dry skin dermatitis: Code(s): L85.3 - Xerosis cutis Category: Medical Plan . Medications: New ammonium lactate 12% apply to right foot daily 1 appl topical DAILY 385 grams 1RF lidocaine-prilocaine 2.5-2.5 % 1 g topical DAILY 30 grams 4RF fexofenadine 180 mg PO DAILY 90 tabs 2RF Refilled buspirone 7.5 mg PO BID 30 tabs 1RF Discontinued lidocaine 4% on for 12 hours off for 12 hours Discontinued Reason: Insurance Denied 1 patch topical DAILY PRN 30 ea 4RF pain cetirizine Discontinued Reason: Doctor's Order 10 mg PO DAILY 90 tabs 1RF
[2025-01-26 13:26] VITALS: BP 114/64; PULSE 81; RESP 14; TEMP 36.7; O2SAT 97; BMI 21.3
--- OUTSIDE RECORDS SUMMARY | 2025-01-26 13:44 | XMS_ITS | Clinical Summary ---
Author Organization [facility] Address [address] [place] [address] Care Team Providers Care Assembler Finger Buffs Name Role Phone Unavailable Primary Care Provider Unavailabl e Encounters Date Type Department Care Team Description 11/06/2024 Transcribe Orders [facility] Kisha Moe APRN Unspecified [...]
== END 2025-01-26 14:25 | disposition home or self-care (01) ==
LOC: HO.HMCFM 13:14
PROVIDERS: PCP Nurse Practitioner Family; Visit Provider Nurse Practitioner Family
DX: Q25.40 Congenital malformation of aorta unspecified (principal); M54.50 Low back pain, unspecified; G89.29 Other chronic pain; J41.0 Simple chronic bronchitis; F41.1 Generalized anxiety disorder; F17.200 Nicotine dependence, unspecified, uncomplicated; J30.89 Other allergic rhinitis; L85.3 Xerosis cutis

== ENCOUNTER → 2025-01-26 13:14 | Outpatient (BNVA) | payer MEDICARE, MEDICAID, SELFPAY | PROVIDERS: PCP Nurse Practitioner Family; Visit Provider Nurse Practitioner Family | DX: Q25.40 Congenital malformation of aorta unspecified (principal); M54.50 Low back pain, unspecified; G89.29 Other chronic pain; J41.0 Simple chronic bronchitis; F41.1 Generalized anxiety disorder; J30.89 Other allergic rhinitis; L85.3 Xerosis cutis; F17.200 Nicotine dependence, unspecified, uncomplicated; Z71.6 Tobacco abuse counseling | CPT/HCPCS: 96127; 99212 ==

== ENCOUNTER 2025-02-08 11:10 | Outpatient (AMB) | payer MEDICARE, MEDICAID, SELFPAY ==
--- NOTE | 2025-02-08 11:10 | A.OFFPC_ITS ---
Intake Visit Reasons: med and breathing Allergies bupropion [From Wellbutrin] Allergy (Intermediate, Verified 02/08/25 11:11) mouth swelling Penicillins [PENICILLINS] Allergy (Intermediate, Verified 02/08/25 11:11) HIVES naproxen Allergy (Mild, Verified 02/08/25 11:11) upset stomach Medication List - Last Reconciled 02/08/25 by JOHNSON SandovalP- acetaminophen ER (Tylenol 8 Hour) 650 mg PO Q8H PRN albuterol sulfate 2.5 mg (3 mL) inhalation Q4-6H PRN 3 months albuterol sulfate 90 mcg/actuation 2 puffs inhalation Q4-6H PRN 30 days ammonium lactate 12% 1 appl topical DAILY atorvastatin 40 mg PO BEDTIME buspirone 7.5 mg PO BID fenofibrate 160 mg PO DAILY fexofenadine 180 mg PO DAILY fluticasone propion-salmeterol 232-14 mcg/actuation (AirDuo RespiClick) 1 inh inhalation BID fluticasone propionate 50 mcg/actuation 2 sprays intranasal DAILY ibuprofen 600 mg PO TID lidocaine-prilocaine 2.5-2.5 % 1 g topical DAILY magnesium oxide 400 mg PO DAILY nicotine (polacrilex) 2 mg buccally PRN; Tobacco use date assessed: 01/26/25 Dental Screening Dental Screen Date: 01/26/25 HPI HPI Comments History of Present Illness Details 49-year-old female with generalized anxi ety disorder, major depressive disorder, HPV, HSV, fibromyalgia, hyperlipidemia, current tobacco smoker, COPD, seasonal allergies, Graves disease, chronic low back pain Status post , cleft palate repair, tubal ligation, cholecystectomy, LEEP History of Present Illness 49-year-old female with COPD current smo ker with hyperlipidemia here today for medication management and complaints of shortness of breath. At the last office visit her atorvastatin fenofibrate and [facility] I have received notification from [facility] since that time stating that refills were too early. I then received a request to send the prescriptions to [facility] in [place]. The patient states that she is now using [facility] has not heard from them about the refills being ready. I confirmed that the refills were sent on these medications to [facility] in [place]. She was made aware that she should follow up with them directly to ensure that the prescriptions were received and are filled. She will be using [facility] going forward. She also states that she has developed a cough with some wheezing since the time that I saw her. She feels like she needs some prednisone. She denies any fever, chills, shortness of breath or chest pain. She is also complaining of chronic back pain and having a hard time walking long distances due to the pain. She would like to have a handicap placard completed. Plan: the patient will follow up with her pharmacy to ensure that her medications were received and notify my office if there are any additional problems. She will use [facility] [place] going forward. Will send a prescription for prednisone 20 mg daily for 5 days advised to take with food. Smoking cessation is encouraged. Continue to use inhalers. Educated on reasons to seek additional healthcare. Asked for her to obtain a handicap placard form and scheduled a visit to complete this. Telehealth Attestation The patient has been explained that this is an interactive (audio/video) telehealth encounter and what that consists of. The patient understands and wishes to proceed. [employer] platform was used. Total time spent caring for the patient today was 18 minutes. This includes time spent before the visit reviewing the chart, time spent during the visit, and time spent after the visit on documentation, reviewing laboratory results, diagnostic imaging, medications, performing a medically necessary evaluation, counseling on diagnoses, care coordination, ordering appropriate tests, ordering appropriate medications, review of tests performed by other providers, reporting test results with the patient, communication with other healthcare providers. 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 Graves disease Thrombocytopenia Hyperlipidemia Fibromyalgia Herpes infection No pertinent past medical history Surgical History H/O LEEP History of cholecystectomy History of tubal ligation History of surgery History of section Family History Father Medical history unknown Mother Alcoholic Liver cancer Maternal Grandmother Diabetes Other Substance abuse Social History (Updated 01/26/25 @ 13:23 by OSEAS Farfan Housing: House Alcohol intake: former Patient Tobacco Use Status: Current someday Tobacco user Cigarettes Per Day: 1 Years Smoked: 20+ e-Cigarette/Vaping Use: Former Use Second Hand Smoke Exposure: Yes service: No Current occupational status: disabled Current occupational exposures/hazards: No Sexual orientation: Straight/Heterosexual Gender identity: Female Cognitive needs: No Hearing needs: No Vision needs: No Questionnaire Thrive Questionnaire Date Thrive assessed: 01/26/25 RONNIE-7 AMB Questionnaire RONNIE-7 Date RONNIE - 7 assessed: 01/26/25 Source: Developed by Drs. Sergio Goins, Mary Corrales, Ra Wayne and colleagues, with an educational huseyin from [employer]. Physical exam (Primary Care) Tobacco/Smoking Status: Tobacco use Status Tobacco use date assessed 01/26/25 01/26/25 13:23 Patient Tobacco Use Status Current someday Tobacco 01/26/25 13:23 e-Cigarette/Vaping Use Former Use 01/26/25 13:23 Thrive Assessment: Date of Thrive Assessment Date Thrive assessed 01/26/25 01/26/25 13:29 Telehealth Telehealth Telehealth Platform: [facility] Location of provider rendering services: practice address Location of patient: address on file Patient Identification confirmed using: Name, : Yes Telehealth method: voice only Patient verbally consented to treatment: Yes Patient verbally consented to billing insurance company: Yes Patient informed of any privacy concerns related to visit: Yes Minutes spent on Phone/Video with Pt.: 10 Coding Level of Care Code Tele Est Pt Level 2 (36878) Complex EM visit Add On G2211 Diagnoses Simple chronic bronchitis J41.0 COPD type: chronic bronchitis Chronic bronchitis type: simple Mixed hyperlipidemia E78.2 Hyperlipidemia type: mixed hyperlipidemia Lumbar spondylosis M47.816 Tobacco dependence with current use F17.200 Assessment & Plan Assessment & Plan (1) COPD (chronic obstructive pulmonary disease): Code(s): J44.9 - Chronic obstructive pulmonary disease, unspecified Category: Medical Qualifiers: COPD type: chronic bronchitis Chronic bronchitis type: simple Qualified Code(s): J41.0 - Simple chronic bronchitis (2) Hyperlipidemia: Code(s): E78.5 - Hyperlipidemia, unspecified Category: Medical Qualifiers: Hyperlipidemia type: mixed hyperlipidemia Qualified Code(s): E78.2 - Mixed hyperlipidemia (3) Lumbar spondylosis: Code(s): M47.816 - Spondylosis without myelopathy or radiculopathy, lumbar region Category: Medical (4) Tobacco dependence with current use: Code(s): F17.200 - Nicotine dependence, unspecified, uncomplicated Category: Medical Plan . Medications: New prednisone 20 mg PO DAILY 5 tabs 0RF
--- OUTSIDE RECORDS SUMMARY | 2025-02-08 13:00 | XMS_ITS | Clinical Summary ---
Author Organization [facility] Address [address] [place] [address] Care Team Providers Care Stenciler Name Role Phone Unavailable Primary Care Provider Unavailabl e Social History Tobacco Use Types Packs/Day Years [...]
== END 2025-02-08 11:19 | disposition home or self-care (01) ==
LOC: HO.HMCFM 11:10
PROVIDERS: PCP Nurse Practitioner Family; Visit Provider Nurse Practitioner Family
DX: J41.0 Simple chronic bronchitis (principal); E78.2 Mixed hyperlipidemia; M47.816 Spondylosis without myelopathy or radiculopathy, lumbar region; F17.200 Nicotine dependence, unspecified, uncomplicated

== ENCOUNTER → 2025-02-08 11:10 | Outpatient (BNVA) | payer MEDICARE, MEDICAID, SELFPAY | PROVIDERS: PCP Nurse Practitioner Family; Visit Provider Nurse Practitioner Family | DX: Z13.89 Encounter for screening for other disorder (principal) ==

== ENCOUNTER 2025-02-09 13:36 | Outpatient (AMB) | payer MEDICARE, MEDICAID, SELFPAY ==
--- OUTSIDE RECORDS SUMMARY | 2025-02-09 13:52 | XMS_ITS | Clinical Summary ---
Author Organization [facility] Address [address] [place] [address] Care Team Providers Care Animal Cop Name Role Phone Unavailable Primary Care Provider [...]
--- NOTE | 2025-02-09 14:18 | A.OFFPC_ITS ---
Intake Visit Reasons: handicap placard Allergies bupropion [From Wellbutrin] Allergy (Intermediate, Verified 02/09/25 14:21) mouth swelling Penicillins [PENICILLINS] Allergy (Intermediate, Verified 02/09/25 14:21) HIVES naproxen Allergy (Mild, Verified 02/09/25 14:21) upset stomach Medication List - Last Reconciled 02/09/25 by JOHNSON SandovalP- acetaminophen ER (Tylenol 8 Hour) 650 mg PO Q8H PRN albuterol sulfate 2.5 mg (3 mL) inhalation Q4-6H PRN 3 months albuterol sulfate 90 mcg/actuation 2 puffs inhalation Q4-6H PRN 30 days ammonium lactate 12% 1 appl topical DAILY atorvastatin 40 mg PO BEDTIME buspirone 7.5 mg PO BID fenofibrate 160 mg PO DAILY fexofenadine 180 mg PO DAILY fluticasone propion-salmeterol 232-14 mcg/actuation (AirDuo RespiClick) 1 inh inhalation BID fluticasone propionate 50 mcg/actuation 2 sprays intranasal DAILY ibuprofen 600 mg PO TID lidocaine-prilocaine 2.5-2.5 % 1 g topical DAILY magnesium oxide 400 mg PO DAILY nicotine (polacrilex) 2 mg buccally PRN; prednisone 20 mg PO DAILY Tobacco use date assessed: 01/26/25 Dental Screening Dental Screen Date: 01/26/25 HPI HPI Comments History of Present Illness Details 49-year-old female with generalized anxi ety disorder, major depressive disorder, HPV, HSV, fibromyalgia, hyperlipidemia, current tobacco smoker, COPD, seasonal allergies, Graves disease, chronic low back pain Status post , cleft palate repair, tubal ligation, cholecystectomy, LEEP History of Present Illness 49-year-old female with chronic back leslie n and lumbar spondylolysis telehealth visit today to complete handicap placard. Patient reports that she has a hard time walking from her car into stores especially when she has a long walk. Reports that she has to stop frequently due to pain. Sometimes she avoids going out due to this pain. She does not use any ambulatory devices. Plan: Temporary, 6 months. Handicap placard form completed while on the phone. The form was scanned into the chart and mailed to medical affairs. The patient is aware that she should receive everything that she needs in the mail. Advised that she should follow up if she need anything further. Return to the office as scheduled. Telehealth Attestation The patient has been explained that this is [facility] and what that consists of. The patient understands and wishes to proceed. [employer] platform was used. Total time spent caring for the patient today was 12 minutes. This includes time spent before the visit reviewing the chart, time spent during the visit, and time spent after the visit on documentation, reviewing laboratory results, diagnostic imaging, medications, performing a medically necessary evaluation, counseling on diagnoses, care coordination, ordering appropriate tests, ordering appropriate medications, review of tests performed by other providers, reporting test results with the patient, communication with other healthcare providers. [facility] Medical History Smoking Anxiety with depression Elevated triglycerides with high cholesterol Acute exacerbation of asthma with allergic rhinitis 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 Graves disease Thrombocytopenia Hyperlipidemia Fibromyalgia Herpes infection No pertinent past medical history Surgical History H/O LEEP History of cholecystectomy History of tubal ligation History of surgery History of section Family History Father Medical history unknown Mother Alcoholic Liver cancer Maternal Grandmother Diabetes Other Substance abuse Social History (Updated 01/26/25 @ 13:23 by Bree Abarca MA) Housing: House Alcohol intake: former Patient Tobacco Use Status: Current someday Tobacco user Cigarettes Per Day: 1 Years Smoked: 20+ e-Cigarette/Vaping Use: Former Use Second Hand Smoke Exposure: Yes service: No Current occupational status: disabled Current occupational exposures/hazards: No Sexual orientation: Straight/Heterosexual Gender identity: Female Cognitive needs: No Hearing needs: No Vision needs: No Questionnaire Thrive Questionnaire Date Thrive assessed: 01/26/25 RONNIE-7 AMB Questionnaire RONNIE-7 Date RONNIE - 7 assessed: 01/26/25 Source: Developed by Drs. Sergio Goins, Mary Corrales, Ra Wayne and colleagues, with an educational huseyin from [employer]. Physical exam (Primary Care) Tobacco/Smoking Status: Tobacco use Status Tobacco use date assessed 01/26/25 02/09/25 12:04 Patient Tobacco Use Status Current someday Tobacco 02/09/25 12:04 e-Cigarette/Vaping Use Former Use 02/09/25 12:04 Thrive Assessment: Date of Thrive Assessment Date Thrive assessed 01/26/25 02/09/25 12:04 Telehealth Telehealth Telehealth Platform: [facility] Location of provider rendering services: practice address Location of patient: address on file Patient Identification confirmed using: Name, : Yes Telehealth method: voice only Patient verbally consented to treatment: Yes Patient verbally consented to billing insurance company: Yes Patient informed of any privacy concerns related to visit: Yes Minutes spent on Phone/Video with Pt.: 6 Coding Level of Care Code Tele Est Pt Level 2 (81692) Complex EM visit Add On G2211 Diagnoses Encounters for administrative purpose Z02.9 Lumbar spondylosis M47.816 Chronic bilateral low back pain without sciatica M54.50; G89.29 Back pain location: low back pain Back pain laterality: bilateral Sciatica presence: without sciatica Assessment & Plan Assessment & Plan (1) Encounters for administrative purpose: Code(s): Z02.9 - Encounter for administrative examinations, unspecified (2) Lumbar spondylosis: Code(s): M47.816 - Spondylosis without myelopathy or radiculopathy, lumbar region Category: Medical (3) Chronic back pain: Code(s): M54.9 - Dorsalgia, unspecified; G89.29 - Other chronic pain Category: Medical Qualifiers: Back pain location: low back pain Back pain laterality: bilateral Sciatica presence: without sciatica Qualified Code(s): M54.50 - Low back pain, unspecified; G89.29 - Other chronic pain Plan .
== END 2025-02-09 14:23 | disposition home or self-care (01) ==
LOC: HO.HMCFM 13:36
PROVIDERS: PCP Nurse Practitioner Family; Visit Provider Nurse Practitioner Family
DX: M47.816 Spondylosis without myelopathy or radiculopathy, lumbar region (principal); M54.50 Low back pain, unspecified; G89.29 Other chronic pain

== ENCOUNTER → 2025-02-09 13:36 | Outpatient (BNVA) | payer MEDICARE, MEDICAID, SELFPAY | PROVIDERS: PCP Nurse Practitioner Family; Visit Provider Nurse Practitioner Family | DX: Z13.89 Encounter for screening for other disorder (principal) ==

== ENCOUNTER 2025-03-15 12:43 | Outpatient (AMB) | payer OTHER, SELFPAY ==
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
[2025-03-15 13:00] VITALS: BP 102/68; PULSE 58; RESP 12; TEMP 36.3; O2SAT 99; BMI 20.6
--- OUTSIDE RECORDS SUMMARY | 2025-03-15 14:47 | XMS_ITS | Clinical Summary ---
Author Organization [facility] Address [address] [place] [address] Care Team Providers Care Funding Coordinator Name Role Phone Unavailable Primary Care Provider [...] (Ages 21-65) 1995 Mammogram 2014 Colonoscopy 2019 COVID-19 Vaccine (1 - 2023-25 season) 2024 Pneumococcal Vaccines 50+ (1 of 1 - PCV) 2024 Zoster (Shingles) Vaccine (1 of 2) 2024 Influenza Vaccine 05/11/2025 Insurance MEDICARE PART A & B
== END 2025-03-15 13:43 | disposition home or self-care (01) ==
PROVIDERS: PCP Nurse Practitioner Family; Visit Provider Nurse Practitioner Family
DX: M54.2 Cervicalgia (principal); V49.50XA Passenger injured in collision with unspecified motor vehicles in traffic accident, initial encounter; M54.50 Low back pain, unspecified; G89.29 Other chronic pain

== ENCOUNTER → 2025-03-15 12:43 | Outpatient (BNVA) | payer MEDICARE, MEDICAID, SELFPAY | PROVIDERS: PCP Nurse Practitioner Family; Visit Provider Nurse Practitioner Family ==

== ENCOUNTER 2025-04-08 13:55 | Outpatient (REF) | payer OTHER, MEDICAID, MEDICARE, SELFPAY ==
--- NOTE | ~2025-04-08 | MR_ITS ---
EXAMINATION: MR CERVICAL SPINE WITHOUT CONTRAST CLINICAL INFORMATION: Cervicalgia. COMPARISON: September 04, 2019. TECHNIQUE: MRI of the cervical spine was obtained using routine sequences without contrast. FINDINGS: Craniocervical junction is intact. There is a 3 mm descensus of the cerebellar tonsils from the foramen magnum. No bone marrow STIR signal abnormality. Grade 1 retrolisthesis C4-5. Grade 1 anterolisthesis C5-6. Multilevel disc desiccation C3 C7. Cervical spinal cord signal is normal. C2-3: No disc herniation. No neuroforamina stenosis. C3-4: Left-sided disc osteophyte compresses formation resulting in ventral deformity of the thecal sac. Left neuroforamina narrowing on a degenerative basis. C4-5: Broad-based disc osteophyte complex formation abutting the cervical spinal cord. No cord compression. Left neuroforamina narrowing. C5-6: Broad-based disc osteophyte compresses lesion abutting the spinal cord. No neuroforamina stenosis. C6-7: Broad-based disc osteophyte complex formation. Reduced AP diameter of the thecal sac. No cord compression. No neuroforamina stenosis. C7-T1: No disc herniation. No neuroforamina stenosis. No prevertebral compartment hematoma, mass or fluid collection. Flow-void signal within the main vessels is normal. Codominant vertebral arteries. Retropharyngeal trajectory of the carotid arteries. MR/MR cervical spine wo con IMPRESSION: Multilevel cervical spondylosis C3 C7 resulting in left neuroforamina stenosis C3-4, C4-5 and mild central spinal canal stenosis C3-4 to C5-6 without cord edema and or myelopathy Borderline position cerebellar tonsils.. Electronically signed by: Pacheco Russo MD 04/09/2025 07:54 AM EDT
--- NOTE | ~2025-04-08 | MR_ITS ---
EXAMINATION: MR LUMBAR SPINE WITHOUT CONTRAST CLINICAL INFORMATION: Cervicalgia. COMPARISON: None available. TECHNIQUE: MRI of the lumbar spine was obtained using routine sequences without contrast. FINDINGS: Last rib-bearing vertebra labeled T12. No bone marrow STIR signal abnormality. There is normal alignment. The vertebral bodies. Conus medullaris ends at pedicle of L1 with normal signal. T12-L1: Normal. L1-2: No disc herniation or neuroforamina stenosis. L2-3: No disc herniation. No neuroforamina stenosis. L3-4: No disc herniation. No neuroforamina stenosis. L4-5: Broad-based disc bulging. No compression upon neural elements. L5-S1: Broad-based disc bulging. No compression upon elements. No prevertebral compartment hematoma, mass or fluid collection. There is a 1.5 cm hyperintense T2 signal within the posterior midportion right kidney. Mild soft tissue fullness, right adrenal gland. MR/MR lumbar spine wo con IMPRESSION: No acute fracture or listhesis or herniated disc. No compression upon neural elements. Cystic lesion right kidney. Soft tissue fullness versus less than 1 cm nodule, right adrenal gland. Electronically signed by: Pacheco Russo MD 04/09/2025 09:38 AM EDT
== END 2025-04-08 13:56 | disposition home or self-care (01) ==
LOC: HO.MRI 13:55
PROVIDERS: PCP Nurse Practitioner Family; Visit Provider Nurse Practitioner Family
DX: M54.2 Cervicalgia (principal); G89.29 Other chronic pain; M54.50 Low back pain, unspecified; V49.50XA Passenger injured in collision with unspecified motor vehicles in traffic accident, initial encounter
CPT/HCPCS: 72141; 72148

== ENCOUNTER → 2025-04-08 14:21 | Outpatient (BNV) | payer OTHER, MEDICAID, MEDICARE, SELFPAY | PROVIDERS: PCP Nurse Practitioner Family; Visit Provider Radiology Diagnostic Radiology | DX: N28.1 Cyst of kidney, acquired (principal); M47.812 Spondylosis without myelopathy or radiculopathy, cervical region | CPT/HCPCS: 72141; 72148 ==

== ENCOUNTER 2025-04-19 11:54 | Outpatient (AMB) | payer MEDICARE, MEDICAID, SELFPAY ==
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
--- OUTSIDE RECORDS SUMMARY | 2025-04-19 12:23 | XMS_ITS ---
Author Name [facility] Organization Unknown Problems Problem Status Onset Date Problem Type Date of Resoluti on Source Unspecified voice and resonance disorder active EncounterDiagnosisAct CCT
--- OUTSIDE RECORDS SUMMARY | 2025-04-19 12:23 | XMS_ITS | Clinical Summary ---
Author Organization [facility]ly [facility] Address [address] [place] [address] Care Team Providers Care Melt Room Operator Name Role Phone Unavailable Primary Care Provider [...]
== END 2025-04-19 13:23 | disposition home or self-care (01) ==
LOC: HO.HMCFM 11:54
PROVIDERS: PCP Nurse Practitioner Family; Visit Provider Nurse Practitioner Family
DX: J41.0 Simple chronic bronchitis (principal); M48.02 Spinal stenosis, cervical region; E27.9 Disorder of adrenal gland, unspecified

== ENCOUNTER 2025-04-25 15:21 | Outpatient (AMB) | payer MEDICARE, MEDICAID, SELFPAY ==
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
--- OUTSIDE RECORDS SUMMARY | 2025-04-25 15:37 | XMS_ITS | Clinical Summary ---
Author Organization [facility] Address [address] [place] [address] Care Team Providers Care Hand Knitter Name Role Phone Unavailable Primary Care Provider [...]
== END 2025-04-25 16:06 | disposition home or self-care (01) ==
LOC: HO.HMCFM 15:21
PROVIDERS: PCP Nurse Practitioner Family; Visit Provider Nurse Practitioner Family
DX: M48.02 Spinal stenosis, cervical region (principal); M47.816 Spondylosis without myelopathy or radiculopathy, lumbar region; Q25.40 Congenital malformation of aorta unspecified; R09.89 Other specified symptoms and signs involving the circulatory and respiratory systems

== ENCOUNTER 2025-05-23 15:08 | Outpatient (AMB) | payer OTHER, SELFPAY ==
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
--- OUTSIDE RECORDS SUMMARY | 2025-05-23 15:10 | XMS_ITS | Clinical Summary ---
Author Organization [facility] Address [address] [place] [address] Care Team Providers Care Production Worker Name Role Phone Unavailable Primary Care Provider [...]
== END 2025-05-23 15:54 | disposition home or self-care (01) ==
PROVIDERS: PCP Nurse Practitioner Family; Visit Provider Nurse Practitioner Family
DX: M54.2 Cervicalgia (principal); M54.50 Low back pain, unspecified; Z04.2 Encounter for examination and observation following work accident; V49.50XA Passenger injured in collision with unspecified motor vehicles in traffic accident, initial encounter

== ENCOUNTER 2025-06-18 15:18 | Outpatient (AMB) | payer MEDICARE, MEDICAID, SELFPAY ==
--- NOTE | 2025-06-18 17:20 | A.OFFPC_ITS ---
Intake Visit Reasons: copd /medication Allergies bupropion (From Wellbutrin) Allergy (Intermediate, Verified 06/18/25 17:21) mouth swelling Penicillins (PENICILLINS) Allergy (Intermediate, Verified 06/18/25 17:21) HIVES naproxen Allergy (Mild, Verified 06/18/25 17:21) upset stomach Medication List - Last Reconciled 06/18/25 by Kisha Moe, COUNSELOR AT [employer]- acetaminophen ER (Tylenol 8 Hour) 650 mg PO Q8H PRN albuterol sulfate 2.5 mg (3 mL) inhalation Q4-6H PRN 3 months albuterol sulfate 90 mcg/actuation 2 puffs inhalation Q4-6H PRN 30 days ammonium lactate 12% 1 appl topical DAILY atorvastatin 40 mg PO BEDTIME buspirone 7.5 mg PO BID fenofibrate 160 mg PO DAILY fexofenadine 180 mg PO DAILY fluticasone propion-salmeterol 232-14 mcg/actuation (AirDuo RespiClick) 1 inh inhalation BID fluticasone propionate 50 mcg/actuation 2 sprays intranasal DAILY ibuprofen 600 mg PO TID lidocaine-prilocaine 2.5-2.5 % 1 g topical DAILY magnesium oxide 400 mg PO DAILY umeclidinium 62.5 mcg/actuation (Incruse Ellipta) 1 inh inhalation BEDTIME Tobacco use date assessed: 04/25/25 Dental Screening Dental Screen Date: 04/25/25 HPI HPI Comments History of Present Illness Details 49-year-old female with generalized anxi ety disorder, major depressive disorder, HPV, HSV, fibromyalgia, hyperlipidemia, current tobacco smoker, COPD, seasonal allergies, Graves disease, chronic low back pain Status post , cleft palate repair, tubal ligation, cholecystectomy, LEEP Telehealth visit today for COPD exac Cold sx for the past few weeks Increase productive cough, wheezing Taking inhalers as prescribed cont to smoke + runny nose Denies fever, chills, hemoptysis, ear pain, sore throat. Physical exam limited by phone speaking in full sentences no audible wheezing occasional dry, tight cough Plan: Zpak Pred cont inhalers smoking cessation If worsening, advised need to go to walk in, ED or schedule in person visit w . has adrenal CT scheduled 06/21. will arrange for fu after this is complete, message sent to front office Telehealth Attestation The telehealth visit was conducted via a secure video platform following standard protocols for patient privacy and confidentiality. The patient has been explained that this is an interactive (audio/video) telehealth encounter and what that consists of. The patient understands and wishes to proceed. [employer] platform was used. Total time spent caring for the patient today was 31 minutes. This includes time spent before the visit reviewing the chart, time spent during the visit, and time spent after the visit on documentation, reviewing laboratory results, diagnostic imaging, medications, performing a medically necessary evaluation, counseling on diagnoses, care coordination, ordering appropriate tests, ordering appropriate medications, review of tests performed by other providers, reporting test results with the patient, communication with other healthcare providers. [facility] Medical History Smoking Anxiety with depression Elevated triglycerides with high cholesterol Acute exacerbation of asthma with allergic rhinitis 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 Graves disease Thrombocytopenia Hyperlipidemia Fibromyalgia Herpes infection No pertinent past medical history Surgical History H/O LEEP History of cholecystectomy History of tubal ligation History of surgery History of section Family History Father Medical history unknown Mother Alcoholic Liver cancer Maternal Grandmother Diabetes Other Substance abuse Social History (Updated 04/19/25 @ 11:51 by Verena Weinberg CMA) Housing: House Alcohol intake: former Comment: quit Patient Tobacco Use Status: Current someday Tobacco user Cigarettes Per Day: 1 Years Smoked: 20+ e-Cigarette/Vaping Use: Former Use Second Hand Smoke Exposure: Yes service: No Current occupational status: disabled Current occupational exposures/hazards: No Sexual orientation: Straight/Heterosexual Gender identity: Female Cognitive needs: No Hearing needs: No Vision needs: No Questionnaire Thrive Questionnaire Date Thrive assessed: 10/25/24 RONNIE-7 AMB Questionnaire RONNIE-7 Date RONNIE - 7 assessed: 01/26/25 Source: Developed by Drs. Sergio Goins, Mary Corrales, Ra Wayne and colleagues, with an educational huseyin from [employer] Physical exam (Primary Care) Tobacco/Smoking Status: Tobacco use Status Tobacco use date assessed 04/25/25 05/23/25 15:08 Patient Tobacco Use Status Current someday Tobacco 05/23/25 15:08 e-Cigarette/Vaping Use Former Use 05/23/25 15:08 Are you ready to quit: No Tobacco cessation counseling provided: Yes Items discussed: Nicotine replacement, QuitWorks and Other Relapse Prevention: discussed the importance of a supportive environment, discussed extending NRT, discussed negative mood or depression after quitting, weight gain after smoking is common and discussed dietary, exercise and/or lifestyle changes Number of minutes spent counselin CPT code: 61934 - 4-10 Minutes Thrive Assessment: Date of Thrive Assessment Date Thrive assessed 10/25/24 05/23/25 15:08 Telehealth Telehealth Telehealth Platform: [employer] Location of provider rendering services: practice address Location of patient: address on file Patient Identification confirmed using: Name, : Yes Telehealth method: voice only Patient verbally consented to treatment: Yes Patient verbally consented to billing insurance company: Yes Patient informed of any privacy concerns related to visit: Yes Minutes spent on Phone/Video with Pt.: 18 Coding Level of Care Code Tele Est Pt Level 4 (09364) Complex EM visit Add On G2211 Diagnoses Simple chronic bronchitis J41.0 COPD type: chronic bronchitis Chronic bronchitis type: simple Tobacco dependence with current use F17.200 Additional Codes Vital Signs *Quality* - CPT code: 70246 - 4-10 Minutes ([id number]) Assessment & Plan Assessment & Plan (1) COPD (chronic obstructive pulmonary disease): Code(s): J44.9 - Chronic obstructive pulmonary disease, unspecified Category: Medical Qualifiers: COPD type: chronic bronchitis Chronic bronchitis type: simple Qualified Code(s): J41.0 - Simple chronic bronchitis (2) Tobacco dependence with current use: Code(s): F17.200 - Nicotine dependence, unspecified, uncomplicated Category: Medical Plan: , Plan . Medications: New azithromycin For 250 mg dose pack: take 500 mg today (day 1), then 250 mg for 4 days (days 2-5) PO 6 tabs 0RF 5 days prednisone 50 mg PO DAILY 5 tabs 0RF 5 days
--- OUTSIDE RECORDS SUMMARY | 2025-06-18 18:24 | XMS_ITS | Clinical Summary ---
Author Organization [facility] Address [address] [place] [address] Care Team Providers Care Business Services Director Name Role Phone Unavailable Primary Care Provider [...]
== END 2025-06-18 17:25 | disposition home or self-care (01) ==
LOC: HO.HMCFM 15:18
PROVIDERS: PCP Nurse Practitioner Family; Visit Provider Nurse Practitioner Family
DX: J41.0 Simple chronic bronchitis (principal); F17.200 Nicotine dependence, unspecified, uncomplicated

== ENCOUNTER 2025-08-01 13:19 | Outpatient (AMB) | payer MEDICARE, MEDICAID, SELFPAY ==
--- NOTE | 2025-08-01 13:26 | A.OFFPC_ITS ---
Vital Signs 08/01/25 13:27 Height 5 ft 3 in Weight 121 lb BMI 21.4 BP 124/70 Blood Pressure Location Lt brachial Position Sitting Pulse 87 Pulse Source Pulse Oximeter Temp 97.9 F Temp Source Oral Pulse Oximetry (%) 99 Oxygen Delivery Method Room Air Intake Visit Reasons: Uri /copd (lyft) Allergies bupropion (From Wellbutrin) Allergy (Intermediate, Verified 08/01/25 13:26) mouth swelling Penicillins (PENICILLINS) Allergy (Intermediate, Verified 08/01/25 13:26) HIVES naproxen Allergy (Mild, Verified 08/01/25 13:26) upset stomach Medication List - Last Reconciled 08/01/25 by SHERWIN Sandoval- acetaminophen ER (Tylenol 8 Hour) 650 mg PO Q8H PRN albuterol sulfate 2.5 mg (3 mL) inhalation Q4-6H PRN 3 months albuterol sulfate 90 mcg/actuation 2 puffs inhalation Q4-6H PRN 30 days ammonium lactate 12% 1 appl topical DAILY atorvastatin 40 mg PO BEDTIME buspirone 7.5 mg PO BID cetirizine (Zyrtec) 10 mg PO DAILY fenofibrate 160 mg PO DAILY fexofenadine 180 mg PO DAILY fluticasone propion-salmeterol 232-14 mcg/actuation (AirDuo RespiClick) 1 inh inhalation BID fluticasone propionate 50 mcg/actuation 2 sprays intranasal DAILY ibuprofen 600 mg PO TID lidocaine-prilocaine 2.5-2.5 % 1 g topical DAILY magnesium oxide 400 mg PO DAILY umeclidinium 62.5 mcg/actuation (Incruse Ellipta) 1 inh inhalation BEDTIME Tobacco use date assessed: 04/25/25 Dental Screening Dental Screen Date: 04/25/25 HPI HPI Comments History of Present Illness Details 49-year-old female with generalized anxi ety disorder, major depressive disorder, HPV, HSV, fibromyalgia, hyperlipidemia, current tobacco smoker, COPD, seasonal allergies, Graves disease, chronic low back pain Status post , cleft palate repair, tubal ligation, cholecystectomy, LEEP History of Present Illness The patient is a 49-year-old female presenting with respiratory symptoms related to COPD. Chronic Obstructive Pulmonary Disease (COPD): - Reports nocturnal breathing difficulti es. - Current inhaler regimen deemed ineffec tive. - Previous azithromycin and steroid tyshawn tment successful. - Currently smoking Back Pain: - Persistent back pain linked to respira tory symptoms. - Worsens at night. - Overdue for Adrenal CT scan Does not drive; misses a lot of appts having hot flashes from fenofribate declines to update labs declined flu shot Review of Systems - Respiratory: Reports difficulty breath ing at night. - Musculoskeletal: Reports back pain. - ENT: Reports unpleasant taste and feel ing due to lesions in throat. - Dermatological: Reports flushing from fenofibrate. - General: Reports feelings of elevated temperature and sweat at night. Physical Exam General: Well developed, well nourished, in no acute distress.Chronically ill appearing Head: Normocephalic, atraumatic. Eyes: Pupils are equal, round and reactive to light and accommodation. Conjunctivae are clear Mouth/Pharynx: Edentulous, thick white coating posterior pharynx Lungs: Ins/Exp wheeze throughout, dry cough, no distress Heart: Regular rate and rhythm. No murmurs, click, rubs or gallops are noted. Musculoskeletal: Joints are nontender, without swelling, redness, or effusions. Pulses: Peripheral pulses are equal and palpable bilaterally. Extremities: No clubbing, cyanosis nor edema is noted. Psych: Mood and affect appropriate Discussion Notes During the visit, I discussed the ongoing management of the patient's COPD, highlighting the lack of sufficient control over symptoms with the current inhaler. I proposed transitioning to Trelegy, a combination inhaler designed to control symptoms better, especially since it includes multiple medications in one puff. I emphasized the importance of rinsing her mouth post-administration to avoid oral candidiasis. We discussed temporary suspension of fenofibrate due to flushing symptoms. I explained the need for follow-up with specialists, including pulmonology and a property preservation specialist, etc. I emphasized smoking cessation's role in managing COPD symptoms and proposed intervention through a smoking cessation counselor. Lastly, I discussed the need for further evaluation given the lesions in the throat and advised continuation of valacyclovir, which previously improved symptoms. We also evaluated options for transportation assistance due to difficulties traveling for medical appointments. Patient was given time to ask questions. All questions were answered to their satisfaction. Assessment and Plan 1. Chronic Obstructive Pulmonary Disease (COPD) - Start Trelegy - Continue rescue inhaler - Declined flu, fu with Pulm, Quit tushar ng 2. Back Pain - nuclear medicine specialist referral - but she welch s not attended appts - Overdue for Adrenal CT. Flushing/HLD: - Hold fenofibrate - Continue atorvastatin - Declined labs White lesions in throat - Valacyclovir continued - Nystatin Refer to NN for smoking cessation and SDOH to help w/ coordination of care follow through etc. Patient Instructions - Use your new inhaler, Trelegy, once da ana maria and remember to rinse your mouth afterward. - Continue using your emergency inhaler when short of breath. - Hold off on using fenofibrate for now. - Keep taking atorvastatin unless advise d otherwise. - Continue taking valacyclovir for throa t issues. - Give your throat medicine some time to work, swallow it, and avoid eating or drinking for 30 minutes. - Check in with specialists as planned: dispatcher service or work for COPD and property preservation specialist for back pain. - Discuss smoking cessation options for better COPD management. - RTO 3 mo CPE sooner PRN Consent Patient was informed and verbally consented to the use of an ambient scribe for clinic note documentation during this visit. Total time spent caring for the patient today was 40 minutes. This includes time spent before the visit reviewing the chart, time spent during the visit, and time spent after the visit on documentation, reviewing laboratory results, diagnostic imaging, medications, performing a medically necessary evaluation, counseling on diagnoses, care coordination, ordering appropriate tests, ordering appropriate medications, review of tests performed by other providers, reporting test results with the patient, communication with other healthcare providers. 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 Graves disease Thrombocytopenia Hyperlipidemia Fibromyalgia Herpes infection No pertinent past medical history Surgical History H/O LEEP History of cholecystectomy History of tubal ligation History of surgery History of section Family History Father Medical history unknown Mother Alcoholic Liver cancer Maternal Grandmother Diabetes Other Substance abuse Social History (Updated 04/19/25 @ 11:51 by Verena Weinberg CMA) Housing: House Alcohol intake: former Comment: quit Patient Tobacco Use Status: Current someday Tobacco user Cigarettes Per Day: 1 Years Smoked: 20+ e-Cigarette/Vaping Use: Former Use Second Hand Smoke Exposure: Yes service: No Current occupational status: disabled Current occupational exposures/hazards: No Sexual orientation: Straight/Heterosexual Gender identity: Female Cognitive needs: No Hearing needs: No Vision needs: No Questionnaire Thrive Questionnaire Date Thrive assessed: 10/25/24 I am a: Patient What is your living situation today?: I have a steady place to live Within the past 12 months, did the food you bought not last and you didn't have the money to get more?: Never true Within the past 12 months, did you worry whether your food would run out before you got money to buy more?: Never true Do you have trouble paying for medicines?: No Do you have trouble getting transportation to medical appointments?: No Do you have trouble paying your heating and electricity bill?: No Do you have trouble taking care of your child, family member or friend?: No Do you have trouble with day-to-day activities such as bathing, preparing meals, shopping, managing finances, etc.?: No Are you currently unemployed and looking for a job?: No Are you interested in more education?: No Please select the resources that you would like help with: None Currently or been in a relationship where the following occur: No concerns reported THRIVE Score: 0 RONNIE-7 AMB Questionnaire RONNIE-7 Date RONNIE - 7 assessed: 01/26/25 Source: Developed by Drs. Sergio Goins, Mary Corrales, Ra Wayne and colleagues, with an educational huseyin from [employer]. Physical exam (Primary Care) Vital Signs: Last Vital Signs Temp 97.9 F 08/01/25 13:27 Pulse 87 08/01/25 13:27 BP 124/70 08/01/25 13:27 Pulse Ox 99 08/01/25 13:27 Oxygen Delivery Method Room Air 08/01/25 13:27 BMI result Body Mass Index 21.4 Tobacco/Smoking Status: Tobacco use Status Tobacco use date assessed 04/25/25 08/01/25 13:26 Patient Tobacco Use Status Current someday Tobacco 08/01/25 13:26 e-Cigarette/Vaping Use Former Use 08/01/25 13:26 Are you ready to quit: No Tobacco cessation counseling provided: Yes Items discussed: Nicotine replacement, QuitWorks and Other Relapse Prevention: discussed the importance of a supportive environment, discussed extending NRT, discussed negative mood or depression after quitting, weight gain after smoking is common and discussed dietary, exercise and/or lifestyle changes Number of minutes spent counselin CPT code: 16274 - 4-10 Minutes Thrive Assessment: Date of Thrive Assessment Date Thrive assessed 10/25/24 08/01/25 13:26 Currently or been in a relationship where the following occur: No concerns reported Coding Level of Care Code Est Pt Level 5 (72869) Complex EM visit Add On G2211 Diagnoses Influenza vaccination declined Z28.21 Tobacco dependence with current use F17.200 Encounter for screening involving social determinants of health (SDoH) Z13.9 Herpes infection B00.9 Simple chronic bronchitis J41.0 COPD type: chronic bronchitis Chronic bronchitis type: simple Mixed hyperlipidemia E78.2 Hyperlipidemia type: mixed hyperlipidemia Adrenal abnormality E27.9 Esophageal candidiasis B37.81 Additional Codes Vital Signs *Quality* - CPT code: 67181 - 4-10 Minutes ([id number]) Assessment & Plan Assessment & Plan (1) Influenza vaccination declined: Onset Date: ~08/01/25 Code(s): Z28.21 - Immunization not carried out because of patient refusal Category: Medical (2) Tobacco dependence with current use: Code(s): F17.200 - Nicotine dependence, unspecified, uncomplicated Category: Medical (3) Encounter for screening involving social determinants of health (SDoH): Code(s): Z13.9 - Encounter for screening, unspecified Category: Medical (4) Herpes infection: Code(s): B00.9 - Herpesviral infection, unspecified Category: Medical (5) COPD (chronic obstructive pulmonary disease): Code(s): J44.9 - Chronic obstructive pulmonary disease, unspecified Category: Medical Qualifiers: COPD type: chronic bronchitis Chronic bronchitis type: simple Qualified Code(s): J41.0 - Simple chronic bronchitis (6) Hyperlipidemia: Code(s): E78.5 - Hyperlipidemia, unspecified Category: Medical Qualifiers: Hyperlipidemia type: mixed hyperlipidemia Qualified Code(s): E78.2 - Mixed hyperlipidemia (7) Adrenal abnormality: Comment: NOTED ON MRI Lumbar spine [facility] [place] Code(s): E27.9 - Disorder of adrenal gland, unspecified Category: Medical (8) Esophageal candidiasis: Code(s): B37.81 - Candidal esophagitis Category: Medical Plan . Orders: Referrals Nurse Navigator Referral F17.200 - Nicotine dependence, unspecified, uncomplicated, Z13.9 - Encounter for screening, unspecified Medications: New akrgvvobfgj-bcseqvsbb-bocynqid 100-62.5-25 mcg (Trelegy Ellipta) 1 inh i nhalation DAILY 60 ea 12RF Refilled valacyclovir 500 mg PO Q12H 20 tabs 1RF 10 days nystatin administer 1/2 of dose in each side of the mouth 500,000 units (5 mL) PO DAILY 1,050 mL 0RF 30 weeks Discontinued umeclidinium 62.5 mcg/actuation (Incruse Ellipta) Discontinued Reason: Doctor's Order 1 inh inhalation BEDTIME 30 ea 2RF fluticasone propion-salmeterol 232-14 mcg/actuation (AirDuo RespiClick) Discontinued Reason: Doctor's Order 1 inh inhalation BID 1 ea 3RF fexofenadine Discontinued Reason: Patient Completed Course 180 mg PO DAILY 90 tabs 2RF On Hold fenofibrate Hold Comment: Doctor's Order 160 mg PO DAILY 30 tabs 2RF E78.2 - Mixed hyperlipidemia
[2025-08-01 13:27] VITALS: BP 124/70; PULSE 87; TEMP 36.6; O2SAT 99; BMI 21.4
--- OUTSIDE RECORDS SUMMARY | 2025-08-01 18:47 | XMS_ITS | Clinical Summary ---
Author Organization [facility] Address [address] [place] [address] Care Team Providers Care Die Sinking Machine Operator Name Role Phone Unavailable Primary Care [...] (Ages 21-65) 1995 Mammogram 2014 Colonoscopy 2019 Pneumococcal Vaccines 50+ (1 of 1 - PCV) 2024 Zoster (Shingles) Vaccine (1 of 2) 2024 Influenza Vaccine 05/11/2025 COVID-19 Vaccine (1 - 2023- season) 2025 RSV Vaccine 50 years and old er and Patients (1 - 1-dose 75+ series) 2049 Insurance MEDICARE PART A & B
== END 2025-08-01 13:55 | disposition home or self-care (01) ==
LOC: HO.HMCFM 13:20
PROVIDERS: PCP Nurse Practitioner Family; Visit Provider Nurse Practitioner Family
DX: J41.0 Simple chronic bronchitis (principal); B37.81 Candidal esophagitis; B00.9 Herpesviral infection, unspecified; Z28.21 Immunization not carried out because of patient refusal; F17.200 Nicotine dependence, unspecified, uncomplicated; E78.2 Mixed hyperlipidemia; E27.9 Disorder of adrenal gland, unspecified

== ENCOUNTER → 2025-08-01 13:19 | Outpatient (BNVA) | payer MEDICARE, MEDICAID, SELFPAY | PROVIDERS: PCP Nurse Practitioner Family; Visit Provider Nurse Practitioner Family | DX: J41.0 Simple chronic bronchitis (principal); M54.9 Dorsalgia, unspecified; B00.9 Herpesviral infection, unspecified; E78.2 Mixed hyperlipidemia; E27.9 Disorder of adrenal gland, unspecified; B37.81 Candidal esophagitis; F17.210 Nicotine dependence, cigarettes, uncomplicated; Z28.21 Immunization not carried out because of patient refusal | CPT/HCPCS: 99212 ==

== ENCOUNTER 2025-09-25 10:09 | Outpatient (AMB) | payer MEDICARE, MEDICAID, SELFPAY ==
--- NOTE | 2025-09-25 10:33 | A.OFFPC_ITS ---
Vital Signs 09/25/25 10:39 Height 5 ft 3 in Weight 126 lb BMI 22.3 BP 118/68 Blood Pressure Location Rt brachial Position Sitting Respiration 12 Pulse 77 Pulse Source Pulse Oximeter Temp 97.2 F Temp Source Oral Pulse Oximetry (%) 98 Oxygen Delivery Method Room Air Intake Visit Reasons: Re: Fibromyalgia Intake Note: Follow up on fibromyalgia. Patient c/o right side kidney cyst px. 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: No Allergies bupropion (From Wellbutrin) Allergy (Intermediate, Verified 09/25/25 10:56) mouth swelling Penicillins (PENICILLINS) Allergy (Intermediate, Verified 09/25/25 10:56) HIVES naproxen Allergy (Mild, Verified 09/25/25 10:56) upset stomach Medication List - Last Reconciled 09/25/25 by SHERWIN Sandoval-CORI acetaminophen ER (Tylenol 8 Hour) 650 mg PO Q8H PRN albuterol sulfate 2.5 mg (3 mL) inhalation Q4-6H PRN 3 months albuterol sulfate 90 mcg/actuation 2 puffs inhalation Q4-6H PRN 30 days ammonium lactate 12% 1 appl topical DAILY atorvastatin 40 mg PO BEDTIME buspirone 7.5 mg PO BID cetirizine (Zyrtec) 10 mg PO DAILY fenofibrate 160 mg PO DAILY Held on 08/01/25. Instructions: Doctor's Order fluticasone propionate 50 mcg/actuation 2 sprays intranasal DAILY vswgjrxhdmr-erfnacrrx-qhxjfvqi 100-62.5-25 mcg (Trelegy Ellipta) 1 inh inhalation DAILY ibuprofen 600 mg PO TID lidocaine-prilocaine 2.5-2.5 % 1 g topical DAILY magnesium oxide 400 mg PO DAILY nystatin 500,000 units (5 mL) PO DAILY 30 weeks valacyclovir 500 mg PO Q12H 10 days Tobacco use date assessed: 09/25/25 Dental Screening Dental Screen Date: 09/25/25 Did you have a dental visit in the last 12 months?: Yes Did you have a dental problem in the last 6 months where you did not have access to dental care?: No Was dental information given to patient?: Patient has dentist HPI HPI Comments History of Present Illness Details 49-year-old female with generalized anxi ety disorder, major depressive disorder, HPV, HSV, fibromyalgia, hyperlipidemia, current tobacco smoker, COPD, seasonal allergies, Graves disease, chronic low back pain Status post , cleft palate repair, tubal ligation, cholecystectomy, LEEP The patient is a 49 year old female presenting with symptoms of an upper respiratory infection lasting four days. Acute Upper Respiratory Infection: - The patient reports a 4-day history of not feeling well. - Symptoms include nasal congestion, nisa st congestion, back pain, and a feeling like walking pneumonia, which she has had before. - She has a history of ripping up her ca rpet, which may have exposed her to irritants. - The patient believes she may have pneu monia. - She continues to use her inhalers, and her insurance covered the new Trelegy inhaler. - She reports cutting back on smoking. Chronic Pain: - The patient has diagnoses of fibromyal mariely and arthritis. - She reports significant pain, stating she feels like a 90-year-old sometimes and has difficulty moving. - The pain affects her ability to stand, requiring her to hold onto something and pull herself up. - She reports that her sleep is impacted by the pain. - She has a history of being on Percocet for about 10 years, which caused anxiety, and was then switched to Vicodin, which she felt was better. - The patient has previously been to [facility], where they offered injections, but she states the shots didn't do anything for her in the past. - She declined a left therapeutic SI martha nt injection that was previously recommended. - A referral to [facility] is currently active. - The patient reports a family history o f substance use. Hypercholesterolemia: - The patient was prescribed atorvastati n for her cholesterol. - She reports that she has not been able to obtain the medication from [facility], as they did not have it in stock. - Fenofibrate was stopped at last visit d/t flushing; this has helped. - Overdue for Adrenal CT scan Does not drive; misses a lot of appts Past medical History: - History of walking pneumonia - Chronic pain secondary to fibromyalgia and arthritis - Past treatment with Percocet and Vicod in for pain - History of pain management consultatio n and receiving sacroiliac joint injections, which were not effective - Tobacco use - Family history of substance use Review of Systems - Respiratory: Reports chest congestion and symptoms similar to walking pneumonia. - HEENT: Reports nasal congestion and a crunchy neck. - Musculoskeletal: Reports back pain, ge neralized soreness, and pain with movement. - Constitutional: Reports not feeling we ll for four days. Physical Exam General: Well developed, well nourished, in no acute distress.Chronically ill appearing Head: Normocephalic, atraumatic. Eyes: Pupils are equal, round and reactive to light and accommodation. Conjunctivae are clear, scleras nonicteric, exopthalmous bilat Mouth/Pharynx: Edentulous, thick white coating posterior pharynx (persistent) Lungs: Dim throughout, dry cough, no distress Heart: Regular rate and rhythm. No murmurs, click, rubs or gallops are noted. Musculoskeletal: Joints are nontender, without swelling, redness, or effusions. Pulses: Peripheral pulses are equal and palpable bilaterally. Extremities: No clubbing, cyanosis nor edema is noted. Psych: Mood and affect appropriate Discussion Notes The patient is a 49-year-old female presenting with a four-day history of nasal and chest congestion, with a subjective feeling of walking pneumonia, a condition she has experienced previously. Given the symptoms, a combined COVID- 19/influenza/RSV nasal swab was performed to rule out these common viral etiologies. Considering her history and subjective chest symptoms, a chest x-ray has been recommended to evaluate for pneumonia, although logistical challenges regarding transportation to the imaging facility were noted. The patient also has significant chronic pain from fibromyalgia and arthritis, which she reports is worsening and impacting her mobility and sleep. She has a history of trying and failing sacroiliac joint injections and has been hesitant to re-engage with pain management. Despite her request for pain medication, I have reiterated my policy of not prescribing controlled substances, including opiates and muscle relaxants, from this primary care setting. . The appropriate course of action is to re-engage with the specialized pain management clinic, for which an active referral exists, to explore other treatment modalities. She is able to travel long distances by car to [facility] to attend concerts and does this frequently. Additionally, the patient reported being unable to fill her atorvastatin prescription. The prescription was resent to her pharmacy during the visit to address this. She should cont her inhalers. I emphasized the importance of rinsing her mouth post-administration to avoid oral candidiasis. I explained the need for follow- up with specialists, including pulmonology and a speech and language specialist, etc. I emphasized smoking cessation's role in managing COPD symptoms and proposed intervention through a smoking cessation counselor. Lastly, I discussed the need for further evaluation given the lesions in the throat and advised continuation of valacyclovir, which previously improved symptoms. We also evaluated options for transportation assistance due to difficulties traveling for medical appoin tments. Patient was given time to ask questions. All questions were answered to their satisfaction. Assessment and Plan 1. Chronic Obstructive Pulmonary Disease (COPD) with flu like sx - cont Trelegy - Continue rescue inhaler - Declined flu, fu with Pulm, Quit smoki ng - A 3-in-1 nasal swab for COVID-19, infl uenza, and RSV was collected for testing. - Recommended a chest X-ray to evaluate for pneumonia, and an order will be placed. - The patient will be contacted with the results of the swab and the X-ray once available. 2. Back Pain - contract law specialist referral - but she welch s not attended appts - Overdue for Adrenal CT. - The patient was counseled that control led substances, including opioids and muscle relaxants, cannot be prescribed in this clinic. - Strongly recommended that the patient follow up with the [facility], for which a live referral is already in place. - Information for contacting the pain ma nagement clinic will be printed for the patient. - Explained that trying recommended proc edures, like the sacroiliac joint injection, is a necessary step in the pain management process, even if prior attempts were not successful, to allow the specialists to determine the next steps. White lesions in throat - Valacyclovir continued - Nystatin - Smoking cessation - ENT fu recommended Referred to [facility] for smoking cessation and SDOH to help w/ coordination of care follow through etc. in the past. Cont care/support. HLD: Flushing improved off fenofibrate, cont off. - The prescription for atorvastatin was re-sent to [facility] in [place]. Patient Instructions: - At the front desk lead, you will receive pr inted information to contact the pain management clinic. - Please call the pain management clinic to schedule an appointment to discuss your chronic pain. - We have placed an order for a chest X- ray. Please try to get this done if you can find a ride. - We will call you with the results from your nasal swab test and the chest X- ray (if you are able to get it done). - We have resent the prescription for yo ur cholesterol medication, atorvastatin, to [facility] pharmacy. - Continue to use your inhalers as presc ribed. - Reschedule and attend all missed appts ; work with [facility] for support. - SMoking cessation. Consent Patient was informed and verbally consented to the use of an ambient scribe for clinic note documentation during this visit. Total time spent caring for the patient today was 40 minutes. This includes time spent before the visit reviewing the chart, time spent during the visit, and time spent after the visit on documentation, reviewing laboratory results, diagnostic imaging, medications, performing a medically necessary evaluation, counseling on diagnoses, care coordination, ordering appropriate tests, ordering appropriate medications, review of tests performed by other providers, reporting test results with the patient, communication with other healthcare providers. [facility] Medical History Smoking Anxiety with depression Elevated triglycerides with high cholesterol Acute exacerbation of asthma with allergic rhinitis 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 Graves disease Thrombocytopenia Hyperlipidemia Fibromyalgia Herpes infection No pertinent past medical history Surgical History H/O LEEP History of cholecystectomy History of tubal ligation History of surgery History of section Family History Father Medical history unknown Mother Alcoholic Liver cancer Maternal Grandmother Diabetes Other Substance abuse Social History (Updated 04/19/25 @ 11:51 by Verena Weinberg CMA) Housing: House Alcohol intake: former Comment: quit Patient Tobacco Use Status: Current someday Tobacco user Cigarettes Per Day: 1 Years Smoked: 20+ Packs per year/per ci.00 e-Cigarette/Vaping Use: Former Use Second Hand Smoke Exposure: Yes service: No Current occupational status: disabled Current occupational exposures/hazards: No Sexual orientation: Straight/Heterosexual Gender identity: Female Cognitive needs: No Hearing needs: No Vision needs: No Questionnaire PHQ-9 Over the last 2 weeks, how often have you been bothered by any of the following problems? 1. Little interest or pleasure in doing things: not at all 2. Feeling down, depressed, or hopeless: not at all 3. Trouble falling or staying asleep, or sleeping too much: not at all 5. Poor appetite or overeating: not at all 6. Feeling bad about yourself - or that you are a failure or have let yourself or your family down: not at all 7. Trouble concentrating on things, such as reading the newspaper or watching television: not at all 8. Moving or speaking so slowly that other people could have noticed. Or the opposite - being so fidgety or restless that you have been moving around a lot more than usual: not at all 9. Thoughts that you would be better off or of hurting yourself in some way: not at all Depression Screening Interpretation: Negative Depression Screening Done: Yes 43135 - PHQ-9 Billing: Yes Source: Developed by Drs. Sergio Gonis, Mary Corrales, Ra Wayne and colleagues, with an educational huseyin from [employer]. Thrive Questionnaire Date Thrive assessed: 09/25/25 I am a: Patient What is your living situation today?: I have a steady place to live Within the past 12 months, did the food you bought not last and you didn't have the money to get more?: Never true Within the past 12 months, did you worry whether your food would run out before you got money to buy more?: Never true Do you have trouble paying for medicines?: No Do you have trouble getting transportation to medical appointments?: No Do you have trouble paying your heating and electricity bill?: No Do you have trouble taking care of your child, family member or friend?: No Do you have trouble with day-to-day activities such as bathing, preparing meals, shopping, managing finances, etc.?: No Are you currently unemployed and looking for a job?: No Are you interested in more education?: No Please select the resources that you would like help with: None Currently or been in a relationship where the following occur: No concerns reported THRIVE Score: 0 AUDIT C Alcohol Use Questionnaire (AUDIT-C) 1. How often do you have a drink containing alcohol?: Never 3. How often do you have six or more drinks on one occasion?: Never Total Score: 0 RONNIE-7 AMB Questionnaire RONNIE-7 Date RONNIE - 7 assessed: 09/25/25 Feeling nervous, anxious, or on edge: 0 = Not at all Not being able to stop or control worryin = Not at all Worrying too much about different things: 0 = Not at all Trouble relaxin = Not at all Being so restless that it is hard to sit still: 0 = Not at all Becoming easily annoyed or irritable: 0 = Not at all Feeling afraid as if something awful might happen: 0 = Not at all Total RONNIE-7 score (0-4 normal; 5-9 mild; 10-14 moderate; 15-21 severe): 0 Source: Developed by Drs. Sergio Gions, Mary oCrrales, Ra Wayne and colleagues, with an educational huseyin from [employer]. RONNIE-7 Assessment Billing RONNIE-7 Assessment Tool: RONNIE-7 Assessment 00518 ACT Questionnaire In the past 4 weeks, how much of the time did your asthma keep you from getting as much done at work, school or at home?: All of the time During the past 4 weeks, how often have you had shortness of breath?: More than once a day During the past 4 weeks, how often did your asthma symptoms wake you up at night or earlier than usual in the morning?: 2-3 nights a week During the past 4 weeks, how often have you had to use your rescue inhaler or nebulizer medication?: More than 3 times per day How would you rate your asthma control during the past 4 weeks?: Somewhat controlled Score: 8 Physical exam (Primary Care) Vital Signs: Last Vital Signs Temp 97.2 F 09/25/25 10:39 Pulse 77 09/25/25 10:39 Resp 12 09/25/25 10:39 BP 118/68 09/25/25 10:39 Pulse Ox 98 09/25/25 10:39 Oxygen Delivery Method Room Air 09/25/25 10:39 BMI result Body Mass Index 22.3 Tobacco/Smoking Status: Tobacco use Status Tobacco use date assessed 09/25/25 09/25/25 10:40 Patient Tobacco Use Status Current someday Tobacco 09/25/25 10:40 e-Cigarette/Vaping Use Former Use 09/25/25 10:40 Are you ready to quit: No Tobacco cessation counseling provided: Yes Items discussed: Nicotine replacement, QuitWorks and Other Relapse Prevention: discussed the importance of a supportive environment, discussed extending NRT, discussed negative mood or depression after quitting, weight gain after smoking is common and discussed dietary, exercise and/or lifestyle changes Number of minutes spent counselin CPT code: 68517 - 4-10 Minutes Depression Screening Interpretation: Negative Thrive Assessment: Date of Thrive Assessment Date Thrive assessed 09/25/25 09/25/25 10:40 Currently or been in a relationship where the following occur: No concerns reported Coding Level of Care Code Est Pt Level 5 (31979) Add On Problem Visit Only Diagnoses Flu-like symptoms R68.89 Simple chronic bronchitis J41.0 COPD type: chronic bronchitis Chronic bronchitis type: simple Tobacco dependence with current use F17.200 Drug-seeking behavior Z76.5 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 Adrenal abnormality E27.9 Esophageal candidiasis B37.81 Chronic bilateral low back pain without sciatica M54.50; G89.29 Back pain location: low back pain Back pain laterality: bilateral Sciatica presence: without sciatica Additional Codes RONNIE-7 Assessment Billing - RONNIE-7 Assessment Tool: RONNIE-7 Assessment 07108 ([id number]) PHQ-9 - 34947 - PHQ-9 Billing: Yes ([id number]) Vital Signs *Quality* - CPT code: 71213 - 4-10 Minutes ([id number]) Assessment & Plan Assessment & Plan (1) Flu-like symptoms: Code(s): R68.89 - Other general symptoms and signs (2) COPD (chronic obstructive pulmonary disease): Code(s): J44.9 - Chronic obstructive pulmonary disease, unspecified Category: Medical Qualifiers: COPD type: chronic bronchitis Chronic bronchitis type: simple Qualified Code(s): J41.0 - Simple chronic bronchitis (3) Tobacco dependence with current use: Code(s): F17.200 - Nicotine dependence, unspecified, uncomplicated Category: Medical (4) Drug-seeking behavior: Comment: She is very polite and is easily redirected. 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 [place] RIGHT Code(s): E27.9 - Disorder of adrenal gland, unspecified Category: Medical (7) Esophageal candidiasis: Code(s): B37.81 - Candidal esophagitis Category: Medical (8) Chronic back pain: Code(s): M54.9 - Dorsalgia, unspecified; G89.29 - Other chronic pain Category: Medical Qualifiers: Back pain location: low back pain Back pain laterality: bilateral Sciatica presence: without sciatica Qualified Code(s): M54.50 - Low back pain, unspecified; G89.29 - Other chronic pain Plan . Orders: Orders SARS-CoV2/FLU/RSV Today R09.89 - Other specified symptoms and signs involving the circulatory and respiratory systems XR chest 2V Today J41.0 - Simple chronic bronchitis Medications: Refilled atorvastatin 40 mg PO BEDTIME 90 tabs 2RF
[2025-09-25 10:39] VITALS: BP 118/68; PULSE 77; RESP 12; TEMP 36.2; O2SAT 98; BMI 22.3
== END 2025-09-25 11:27 | disposition home or self-care (01) ==
LOC: HO.HMCFM 10:10
PROVIDERS: PCP Nurse Practitioner Family; Visit Provider Nurse Practitioner Family
DX: J41.0 Simple chronic bronchitis (principal); B37.81 Candidal esophagitis; Q25.40 Congenital malformation of aorta unspecified; E27.9 Disorder of adrenal gland, unspecified; M54.50 Low back pain, unspecified; F17.200 Nicotine dependence, unspecified, uncomplicated; Z76.5 Malingerer [conscious simulation]; Z72.89 Other problems related to lifestyle

== ENCOUNTER 2025-09-25 10:09 | Outpatient (REF) | payer MEDICARE, MEDICAID, SELFPAY ==
[2025-09-25 15:24] LABS: Resp Syncy Virus RNA Qual PCR NEGATIVE (Negative); SARS COV2 PCR INHOUSE NEGATIVE (Negative)
== END 2025-09-25 10:10 | disposition home or self-care (01) ==
LOC: HO.LNP 10:09
PROVIDERS: PCP Nurse Practitioner Family; Visit Provider Nurse Practitioner Family
DX: J41.0 Simple chronic bronchitis (principal); R68.89 Other general symptoms and signs; Q25.40 Congenital malformation of aorta unspecified; E27.9 Disorder of adrenal gland, unspecified; B37.81 Candidal esophagitis; M54.50 Low back pain, unspecified; G89.29 Other chronic pain; Z76.5 Malingerer [conscious simulation]
CPT/HCPCS: 87637; 96127; 96160; 99212